=== PATIENT | female | born 1935 | race Caucasian/White ===

== ENCOUNTER → 2016-05-15 | Outpatient (CLI) | payer MEDICARE, OTHER ==
[~2016-05-15] MED LIST: /LOR25TA PO; /METO25TAB PO; ALBU17IN INH; ALEVE PO; AMIT10TA2 OR; AMIT25TA10 PO; ASPI81TA63; ASPI81TA83 OR; ASPI81TAEC PO; BABY81CH; BLACK COHOSH PO; CITA20TA4 PO; COLA100C PO; COMBINATION CREAM TOP; COZA100T OR; CRES20TA; CRES40TA OR; CRES40TA PO; CYMB1CAP5 PO; DOCU10CA PO; ESTR3TA; FISH5CAP PO; FISHCAP OR; FISHCAP5 PO; GABA100C PO; GLUC500C11 PO; GLUCPOW24 PO; GUMMCHW PO; HYDROCODONE PO; LOSA100T36 PO; LOSA50TA20 PO; LYRI75CA; MAGN400C2 PO; MAGN400T5 PO; MAGNESIUM COMPLEX PO; MILKSUS PO; MONT10TA2 PO; MULTCAP PO; Miralax PO; NAPR500T OR; NEUR100C OR; NEUR100C PO; NEUR300C PO; NIAS1000 PO; NIAS10003 OR; NORCOBULK PO; OMEP40CA2 PO; PERC5TAB6 PO; SENO8.6T2 PO; SING10TA31 OR; SING5CHW PO; SM I100T OR; SOMA250T; TRAM50TA2; TYLE-18 PO; TYLE325T5 PO; VICO5TAB; VICO5TAB OR; VICO5TAB PO; VICOTAB4 PO; VITA100041 PO; VITAMIN D50000 UNT; VITAMIN D50000 UNT OR; VOLT1GEL2 TOP; WOMAN'S ONE A DAY; WOMEN'S ONE A DAY OR; ZOLP-187 PO; black cohosh PO; hydrocodone PO
--- NOTE | 2016-05-16 00:08 | ECWPNPC ---
PATIENT NAME: YUKI LAM : 1935 GENDER: FEMALE VISIT DATE: 05/15/2016 DISCHARGE DATE: 05/15/16 1129 VISIT LOCKED DATE TIME: PHYSICIAN: ALIREZA EVANS RESOURCE: ALIREZA EVANS REASON FOR APPOINTMENT 1. BACK HISTORY OF PRESENT ILLNESS HISTORY OF PRESENT ILLNESS: PAIN THE PATIENT DESCRIBES THE PAIN... FALL RISK SCREENING: SCREENING :NO FALLS IN THE PAST YEAR TODAY'S VISIT: NOTES: IS S/P BILATERAL LUMBAR FACET 04/09/16 WHICH EXTEMELY EFFECTIVE UNTIL AN EVENT SEVERAL WEEKS AGO WHEN BENDING OVER. THIS AM ON AWAKIENING HAD MIN DISCOMFORT BUT AFTER DRIVING PAIN HAS ESCALATED.IS STILL HAVING EPISODES OF WEAKNESS IN RIGHT FOOT.. CURRENT MEDICATIONS TAKING LOSARTAN POTASSIUM 50 MG TABLET 1 TABLET ORALLY ONCE A DAY TAKING ASPIRIN 81 MG TABLET 1 TABLET ORALLY ONCE A DAY TAKING MAGNESIUM OXIDE 400 MG TABLET ORALLY BID TAKING CRESTOR 40 MG TABLET 1 TABLET ORALLY ONCE A DAY TAKING NIASPAN 1000 MG TABLET EXTENDED RELEASE 1 TABLET AT BEDTIME ORALLY ONCE A DAY TAKING ADVAIR DISKUS 250-50 MCG/DOSE MISCELLANEOUS 1 PUFF INHALATION TWICE A DAY TAKING SINGULAIR 10 MG TABLET 1 TABLET IN THE EVENING ORALLY ONCE A DAY TAKING DULOXETINE HCL 30 MG CAPSULE DELAYED RELEASE PARTICLES 1 CAPSULE ORALLY ONCE A DAY TAKING VITAMIN D 2000 UNIT TABLET 2 TABLETS ORALLY ONCE A DAY TAKING CYCLOBENZAPRINE HCL 5 MG TABLET 1 TABLET ORALLY BID TAKING IMODIUM A-D 2 MG TABLET 1 TABLET ORALLY EVERY 2 HOURS NEEDED FOR DIARRHEA (MDD=8) NOT-TAKING OMEPRAZOLE 40MG CAPSULE DELAYED RELEASE 1 CAPSULE ORALLY ONCE A DAY NOT-TAKING LIDOCAINE HCL JELLY RESIDENTIAL 2 % JELLY 1 APPLICATION TO AFFECTED AREA NEEDED INTRAVESICALLY PRIOR TO PROCEDURE MEDICATION LIST REVIEWED AND RECONCILED WITH THE PATIENT PAST MEDICAL HISTORY HYPERTENSION - 10/08/13 TTE MILD MR/TR, MILD DIASTOLIC DYSFUNCTION, NORMAL LVE F -DR. 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 NEW PATIENT PAIN DIARY TODAY'S VISITNOTES FROM 0-10, WHAT LEVEL IS YOUR PAIN TODAY?0 PAIN CLINIC PFS, CLERGY, PUBLIC HEALTH REFERRALS PFS REFERRAL NEEDED?NO CLERGY REFERRAL NEEDED?NO PUBLIC HEALTH REFERRAL NEEDED?NO WAS THE PROVIDER NOTIFIED OF ANY PERTINENT INFO?NO PFS REFERRAL NEEDED?NO CLERGY REFERRAL NEEDED?NO PUBLIC HEALTH REFERRAL NEEDED?NO WAS THE PROVIDER NOTIFIED OF ANY PERTINENT INFO?NO REVIEW OF SYSTEMS CONSTITUTIONAL: ANY CHANGE IN YOUR MEDICAL CONDITION? NO . CHILLS NO . FEVER NO . INFECTION: DO YOU HAVE NEW INFECTIONS? NO - RECENT SINUS CONGESTION . DO YOU HAVE HISTORY OF MRSA? NO . MUSCULOSKELETAL: ANY NEW PATTERNS OF PAIN OR NUMBNESS? NO . GASTROENTEROLOGY: GENERAL INCEASED GAS AND BLOATING. IS BEING SCHEDULED FOR ENDOSCOPY . ANY NEW CHANGE IN BOWEL CONTROL? NO . GENITOURINARY: ANY NEW CHANGE IN BLADDER CONTROL? NO . IS THERE A CHANCE YOU COULD BE ? NO . HEMATOLOGY/LYMPH: DO YOU TAKE ANY BLOOD THINNERS? (FOR EXAMPLE- COUMADIN, PLAVIX, AGGRENOX, PLATEL, PRADAXA, OR XARELTO) NO . WHEN WAS YOUR LAST DOSE? DATE: TIME: . NEUROLOGY: HAVE YOU FALLEN IN THE PAST 6 MONTHS? NO . ANY NEW EXTREMITY NUMBNESS OR WEAKNESS? NO . CARDIOLOGY: DO YOU HAVE A PACEMAKER OR DEFIBRILLATOR? NO . RESPIRATORY: HAVE YOU BEEN SICK IN THE PAST WEEK? NO . FEVER NO . FLU LIKE SYMPTOMS? NO . COUGH NO . INTEGUMENTARY: DO YOU HAVE ANY RASHES OR OPEN SORES? YES RIGHT HAND SKIN TEAR. . ALLERGIC/IMMUNO: ARE YOU ALLERGIC TO SHELLFISH OR IV DYE? NO . ANY NEW ALLERGIES? NO . PSYCHIATRIC: DO YOU HAVE THOUGHTS OF HURTING YOURSELF OR SOMEONE ELSE? NO . ARE YOU ABUSED, NEGLECTED, OR IN AN UNSAFE ENVIRONMENT? NO . ENDOCRINOLOGY: ARE YOU DIABETIC? NO . OTHER: DO YOU NEED ANY PRESCRIPTIONS? NO . IF YES, PLEASE LIST: ____ . ANY NEW PROBLEMS WITH YOUR MEDICATIONS? NO . WHEN DID YOU LAST EAT? ____ . WHEN DID YOU LAST DRINK? ____ . WHAT DID YOU LAST DRINK? ____ . NAME OF PERSON DRIVING YOU HOME? ____ . DO YOU HAVE ANY OTHER QUESTIONS OR CONCERNS NO . REVIEWED BY: PROVIDER: ALIREZA PATEL . VITAL SIGNS WT 148.8 LBS, HT 61.50 IN, BMI 27.66 INDEX, BP 128/60 MM HG, HR 90 /MIN, RR 16 /MIN, TEMP 96.7 F, OXYGEN SAT % 97%, NA INITIALS SC 10:52. EXAMINATION GENERAL EXAMINATION: PSYCHALERT , ORIENTED X 3 , APPROPRIATE MOOD AND AFFECT , TALKATIVE. LUNGS:CLEAR TO AUSCULTATION BILATERALLY. HEART:HEART RATE REGULAR. MUSCULOSKELETAL:MUSCLE STRENGTH TESTING 5/5 BILATERAL UPPER AND LOWER EXTREMITIES. MINIMAL TENDERNESS OVER CERVICAL SPINOUS ELICITED WITH PALPATION. POINT TENDERNESS OVER LUMBAR PARAVERTEBRAL MUSCLES AND LUMBAR FACETS AND INTO THE SACRUM. RISES EASILY TO STANDING POSITION. SLIGHT WEAKNESS WITH DORSIFLEXION OF RIGHT FOOT. GAIT NONANTALGIC.. SKIN:NO RASHES. SMALL SUPERFICIAL SKIN TEAR RIGHT WRIST, COVERED WITH BANDAID. ASSESSMENTS LUMBAR FACET ARTHROPATHY - M12.88 (PRIMARY) MYALGIA - M79.1 TREATMENT LUMBAR FACET ARTHROPATHY INJECTION FACET JOINT/NERVE CRYSTAL/SACRALALIREZA EVANS 05/15/2016 11:18:18 AM > THERAPEUTIC BILATERAL NOTES: WALK TOLERATED. TRY ADJUSTING CAR SEAT FOR LUMBAR SUPPORT. PROCEDURE CODES FA211 ESTABILISHED PATIENT [facility] FACILITY CHARGE G8783 BP SCR PRFRM RCMDD DEFIND SCR INTVL 3016F PT SCRND [place]HL[place] USE 1123F ACP DISCUSS/DSCN MKR DOCD 1036F TOBACCO NON-USER 0518F FALL PLAN OF CARE DOCD G8427 DOC MEDS VERIFIED W/PT OR RE G8420 BMI<30 AND >=22 CALC & DOCU 3288F FALL RISK ASSESSMENT DOCD FOLLOW UP AFTER PROCEDURE (REASON: CHECK AUTH FOR BILATERAL LUMBAR FACET BLOCK) ELECTRONICALLY SIGNED BY GREG WAGNER ON 05/15/2016 AT 12:27 PM EST DISCLAIMER : THIS IS A VISIT SUMMARY EXTRACTED FROM THE [employer] CHART. IT IS NOT A COPY OF THE [employer] PROGRESS NOTE. MTDD
== END ==
LOC: M PAIN 10:40
PROVIDERS: ATTEND Nurse Practitioner Family
DX: Z09 Encounter for follow-up examination after completed treatment for conditions other than malignant neoplasm (principal); M12.88 Other specific arthropathies, not elsewhere classified, other specified site; M79.7 Fibromyalgia; I10 Essential (primary) hypertension; E78.5 Hyperlipidemia, unspecified; J44.9 Chronic obstructive pulmonary disease, unspecified; M51.86 Other intervertebral disc disorders, lumbar region; F32.9 Major depressive disorder, single episode, unspecified; F41.9 Anxiety disorder, unspecified; G47.00 Insomnia, unspecified; E55.9 Vitamin D deficiency, unspecified; I65.23 Occlusion and stenosis of bilateral carotid arteries; Z88.8 Allergy status to other drugs, medicaments and biological substances; Z79.82 Long term (current) use of aspirin; Z79.899 Other long term (current) drug therapy

== ENCOUNTER → 2016-05-29 | Outpatient (CLI) | payer MEDICARE, OTHER ==
[~2016-05-29] MED LIST changes: +BUPIVACAINE HCL 0.25% 30 ML VIAL As Ordered ONE; +ISOVUE-M 300 61% 15ML VIAL (Q9967) As Ordered ONE; +LIDOCAINE 1% SDV INJ 30 ML VIAL As Ordered ONE; +TRIAMCINOLONE ACETONIDE SUSP 40 MG/ML VIAL (J3301) As Ordered ONE; +diazePAM 5 MG TAB As Ordered ONE; +oxyCODONE 5MG TAB As Ordered ONE
--- NOTE | 2016-05-29 13:12 | REP ---
Partial lumbar spine series: Four views. History: Bilateral lumbar facet block for pain. 35 seconds of fluoroscopy is reported. Findings: A sequence of four fluoroscopically obtained intraprocedural spot radiographs of the lumbar spine document needle position and contrast injection associated with lumbar facet injection procedure. Signed by Kole Robin MD 05/29/2016 02:34 P
--- NOTE | 2016-05-31 00:22 | ECWPNPC ---
PATIENT NAME: YUKI LAM : 1935 GENDER: FEMALE VISIT DATE: 05/29/2016 DISCHARGE DATE: 05/29/16 1142 VISIT LOCKED DATE TIME: PHYSICIAN: KWAKU CID RESOURCE: KWAKU CID REASON FOR APPOINTMENT 1. BILATERAL LUMBAR FACET BLOCK HISTORY OF PRESENT ILLNESS HISTORY OF PRESENT ILLNESS: PAIN THE PATIENT DESCRIBES THE PAIN... FALL RISK SCREENING: SCREENING :NO FALLS IN THE PAST YEAR CURRENT MEDICATIONS TAKING LOSARTAN POTASSIUM 50 MG TABLET 1 TABLET ORALLY ONCE A DAY, NOTES: 05-28-16699 TAKING ASPIRIN 81 MG TABLET 1 TABLET ORALLY ONCE A DAY, NOTES: 05-28-162099 TAKING MAGNESIUM OXIDE 400 MG TABLET ORALLY BID, NOTES: 05-28-162099 TAKING CRESTOR 40 MG TABLET 1 TABLET ORALLY ONCE A DAY, NOTES: 05-28-16799 TAKING NIASPAN 1000 MG TABLET EXTENDED RELEASE 1 TABLET AT BEDTIME ORALLY ONCE A DAY, NOTES: 05-28-16799 TAKING ADVAIR DISKUS 250-50 MCG/DOSE MISCELLANEOUS 1 PUFF INHALATION TWICE A DAY, NOTES: 05-27-162099 TAKING SINGULAIR 10 MG TABLET 1 TABLET IN THE EVENING ORALLY ONCE A DAY, NOTES: 05-28-16 TAKING DULOXETINE HCL 30 MG CAPSULE DELAYED RELEASE PARTICLES 1 CAPSULE ORALLY ONCE A DAY, NOTES: 05-28-16799 TAKING VITAMIN D 2000 UNIT TABLET 2 TABLETS ORALLY ONCE A DAY, NOTES: 05-28-162099 TAKING CYCLOBENZAPRINE HCL 5 MG TABLET 1 TABLET ORALLY BID, NOTES: 05-27-162099 TAKING IMODIUM A-D 2 MG TABLET 1 TABLET ORALLY EVERY 2 HOURS NEEDED FOR DIARRHEA (MDD=8), NOTES: 05-23-162099 NOT-TAKING CYCLOBENZAPRINE HCL 5 MG TABLET 1 TABLET ORALLY BEFORE BEDTIME NOT-TAKING OMEPRAZOLE 40MG CAPSULE DELAYED RELEASE 1 CAPSULE ORALLY ONCE A DAY NOT-TAKING LIDOCAINE HCL JELLY FCI 2 % JELLY 1 APPLICATION TO AFFECTED AREA NEEDED INTRAVESICALLY PRIOR TO PROCEDURE MEDICATION LIST REVIEWED AND RECONCILED WITH THE PATIENT PAST MEDICAL HISTORY HYPERTENSION - 10/08/13 TTE MILD MR/TR, MILD DIASTOLIC DYSFUNCTION, NORMAL LVE F -DR. 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 NEW PATIENT PAIN DIARY TODAY'S VISITNOTES FROM 0-10, WHAT LEVEL IS YOUR PAIN TODAY?0 PAIN CLINIC PFS, CLERGY, PUBLIC HEALTH REFERRALS PFS REFERRAL NEEDED?NO CLERGY REFERRAL NEEDED?NO PUBLIC HEALTH REFERRAL NEEDED?NO WAS THE PROVIDER NOTIFIED OF ANY PERTINENT INFO?NO PFS REFERRAL NEEDED?NO CLERGY REFERRAL NEEDED?NO PUBLIC HEALTH REFERRAL NEEDED?NO WAS THE PROVIDER NOTIFIED OF ANY PERTINENT INFO?NO REVIEW OF SYSTEMS CONSTITUTIONAL: ANY CHANGE IN YOUR MEDICAL CONDITION? NO . CHILLS NO . FEVER NO . INFECTION: DO YOU HAVE NEW INFECTIONS? NO . DO YOU HAVE HISTORY OF MRSA? NO . MUSCULOSKELETAL: ANY NEW PATTERNS OF PAIN OR NUMBNESS? NO . GASTROENTEROLOGY: ANY NEW CHANGE IN BOWEL CONTROL? NO . GENITOURINARY: ANY NEW CHANGE IN BLADDER CONTROL? NO . IS THERE A CHANCE YOU COULD BE ? NO . HEMATOLOGY/LYMPH: DO YOU TAKE ANY BLOOD THINNERS? (FOR EXAMPLE- COUMADIN, PLAVIX, AGGRENOX, PLATEL, PRADAXA, OR XARELTO) NO . WHEN WAS YOUR LAST DOSE? DATE: TIME: . NEUROLOGY: HAVE YOU FALLEN IN THE PAST 6 MONTHS? NO . ANY NEW EXTREMITY NUMBNESS OR WEAKNESS? NO . CARDIOLOGY: DO YOU HAVE A PACEMAKER OR DEFIBRILLATOR? NO . RESPIRATORY: HAVE YOU BEEN SICK IN THE PAST WEEK? NO . FEVER NO . FLU LIKE SYMPTOMS? NO . COUGH NO . INTEGUMENTARY: DO YOU HAVE ANY RASHES OR OPEN SORES? PT HAS SMALL HEALING SORE ON RIGHT WRIST, NO DRAINAGE, NO REDNESS. . ALLERGIC/IMMUNO: ARE YOU ALLERGIC TO SHELLFISH OR IV DYE? NO . ANY NEW ALLERGIES? NO . PSYCHIATRIC: DO YOU HAVE THOUGHTS OF HURTING YOURSELF OR SOMEONE ELSE? NO . ARE YOU ABUSED, NEGLECTED, OR IN AN UNSAFE ENVIRONMENT? NO . ENDOCRINOLOGY: ARE YOU DIABETIC? NO . OTHER: DO YOU NEED ANY PRESCRIPTIONS? NO . IF YES, PLEASE LIST: ____ . ANY NEW PROBLEMS WITH YOUR MEDICATIONS? NO . WHEN DID YOU LAST EAT? 05/28 9:30PM . WHEN DID YOU LAST DRINK? 05/29 6:45AM . WHAT DID YOU LAST DRINK? BLACK COFFEE . NAME OF PERSON DRIVING YOU HOME? BREE . DO YOU HAVE ANY OTHER QUESTIONS OR CONCERNS NO, PT STATES THAT SHE HAS NOT HAD FLU SHOT SINCE LAST YEAR. . REVIEWED BY: PROVIDER: . VITAL SIGNS WT 14.8 LBS, HT 61.50 IN, BMI 2.75 INDEX, BP 164/72 MM HG, HR 88 /MIN, RR 16 /MIN, TEMP 96.0 F, OXYGEN SAT % 98, SAFE IN ENV? (Y/N) Y, NA INITIALS TL 0946, REVIEWED BY: DS. ASSESSMENTS SPONDYLOSIS WITHOUT MYELOPATHY OR RADICULOPATHY, LUMBAR REGION - M47.816 (PRIMARY) SPONDYLOSIS WITHOUT MYELOPATHY OR RADICULOPATHY, LUMBOSACRAL REGION - M47.817 PROCEDURES PN LUMBAR FACET BLOCK THERAPEUTIC PRE PROCEDURE DIAGNOSIS LUMBAR SPONDYLOSIS, LUMBOSACRAL SPONDYLOSIS POST PROCEDURE DIAGNOSIS LUMBAR SPONDYLOSIS, LUMBOSACRAL SPONDYLOSIS PROCEDURE BILATERAL L4-L5 AND BILATERAL L5-S1 FACET THERAPEUTIC BLOCK SURGEON DR. KWAKU CID DICE SPOTTER NONE ANESTHESIA LOCAL PRE PROCEDURE NOTE THE PATIENT HAS A HISTORY OF CHRONIC LOW BACK PAIN. I EVALUATE THE PATIENT AND REVIEWED THE CHART. I WENT OVER THE RISKS, ALTERNATIVES, AND BENEFITS ASSOCIATED WITH THIS PROCEDURE. THE PATIENT WOULD LIKE TO PROCEED AND GIVE CONSENT TO PERFORMED THE PROCEDURE. THE PATIENT DENIES UNEXPLAINABLE WEIGHT LOSS, FEVER, CHILLS, OR NEW CHANGES IN URINARY OR BOWEL CONTROL DESCRIPTION OF PROCEDURE THE PATIENT WAS BROUGHT TO THE PROCEDURE ROOM AND PLACED IN THE PRONE POSITION. THE LUMBOSACRAL AREA WAS CLEANED WITH CHLORAPREP SOLUTION AND DRAPED ASEPTICALLY. THE PROCEDURE WAS DONE UNDER STERILE CONDITIONS. I CHECKED LATERALITY AND THE LEVEL WHERE THE PROCEDURE WAS GOING TO BE PERFORMED WITH THE PATIENT AND THE SUPPORTING STAFF AT THE MOMENT OF THE TIME OUT IN THE PROCEDURE ROOM. UNDER FLUOROSCOPIC GUIDANCE, THE TARGET POINT WAS SELECTED AT THE RIGHT AND LEFT L4-L5 AND RIGHT AND LEFT L5-S1 FACET JOINT. TARGET POINT WAS SELECTED AFTER LATERAL ROTATION AND TILT OF THE MAGNIFIER OF THE C-ARM. LIDOCAINE 0.5% WAS USED TO NUMB THE SKIN AND THE SUBCUTANEOUS TISSUE BELOW IT. SPINAL NEEDLES, 22-GAUGE, WERE ADVANCED UNDER FLUOROSCOPIC GUIDANCE AND FOLLOWING PATIENT FEEDBACK UNTIL THE TARGETS WERE TOUCHED. THE POSITION OF THE NEEDLES WAS VERIFIED WITH AP AND LATERAL VIEWS. AFTER PROPER POSITION OF THE NEEDLES WAS ACHIEVED, ISOVUE-M DYE 30% 0.1 ML WAS INJECTED SHOWING ADEQUATE SPREAD OF THE DYE. THEN A SOLUTION OF 1.9 ML OF BUPIVACAINE 0.125% OF KENALOG 10 MG WAS INJECTED AT EACH SITE. THERE WAS NO EVIDENCE OF BLOOD, PARESTHESIA OR CEREBROSPINAL FLUID DURING THE PROCEDURE. THE PATIENT WAS SENT TO THE RECOVERY ROOM. THE PATIENT WAS MOVING THE EXTREMITIES AND DOING WELL. THERE WAS NO COMPLICATION DURING THE PROCEDURE. FLUOROSCOPY TIME WAS 35 SECONDS POST PROCEDURE NOTE THE PATIENT WILL BE SEEN IN A FOLLOW UP IN THE NEXT FEW WEEKS. INSTRUCTIONS WERE GIVEN, QUESTIONS WERE ANSWERED, AND THE PATIENT EXPRESSED UNDERSTANDING AND AGREES WITH THE PLAN. INSTRUCTIONS WERE GIVEN, QUESTIONS WERE ANSWERED, PATIENT REPORTS UNDERSTANDING AND AGREES WITH THE PLAN. I, CALVIN YUSUF, DOCUMENTED THE ABOVE INFORMATION ACTING A SCRIBE FOR DR. CID. I HAVE REVIEWED THE ABOVE DOCUMENT, WRITTEN BY CALVIN YUSUF SCRIBE AND I VERIFY THAT IT IS ACCURATE. DIAGNOSTIC IMAGING [facility] FACET BLOCK (PAIN)[id number] PROCEDURE CODES 87513 INJ PARAVERT F JNT L/S 1 LEV 97352 INJ PARAVERT F JNT L/S 2 LEV 6045F RADXPS IN END [id number] PXD FOLLOW UP 3 WEEKS ELECTRONICALLY SIGNED BY KWAKU CID MD ON 05/30/2016 AT 08:09 PM EST DISCLAIMER : THIS IS A VISIT SUMMARY EXTRACTED FROM THE [employer] CHART. IT IS NOT A COPY OF THE [employer] PROGRESS NOTE. MTDD
== END ==
LOC: M PAIN 09:40
PROVIDERS: ATTEND Anesthesiology
DX: G89.29 Other chronic pain (principal); M47.816 Spondylosis without myelopathy or radiculopathy, lumbar region; M47.817 Spondylosis without myelopathy or radiculopathy, lumbosacral region; I10 Essential (primary) hypertension; E78.5 Hyperlipidemia, unspecified; J44.9 Chronic obstructive pulmonary disease, unspecified; F32.9 Major depressive disorder, single episode, unspecified; F41.9 Anxiety disorder, unspecified; G47.00 Insomnia, unspecified; E55.9 Vitamin D deficiency, unspecified; I65.23 Occlusion and stenosis of bilateral carotid arteries; M19.90 Unspecified osteoarthritis, unspecified site; M79.7 Fibromyalgia; Z88.8 Allergy status to other drugs, medicaments and biological substances; Z79.82 Long term (current) use of aspirin
CPT/HCPCS: 64493; 64494; J3301; Q9967

== ENCOUNTER → 2016-06-12 | Outpatient (CLI) | payer MEDICARE, OTHER ==
[~2016-06-12] MED LIST changes: -BUPIVACAINE HCL 0.25% 30 ML VIAL As Ordered ONE; -ISOVUE-M 300 61% 15ML VIAL (Q9967) As Ordered ONE; -LIDOCAINE 1% SDV INJ 30 ML VIAL As Ordered ONE; -TRIAMCINOLONE ACETONIDE SUSP 40 MG/ML VIAL (J3301) As Ordered ONE; -diazePAM 5 MG TAB As Ordered ONE; -oxyCODONE 5MG TAB As Ordered ONE
--- NOTE | 2016-07-04 00:57 | ECWPNPC ---
PATIENT NAME: YUKI LAM : 1935 GENDER: FEMALE VISIT DATE: 06/12/2016 DISCHARGE DATE: 06/12/16 1204 VISIT LOCKED DATE TIME: PHYSICIAN: ALIREZA EVANS RESOURCE: ALIREZA EVANS REASON FOR APPOINTMENT 1. BACK HISTORY OF PRESENT ILLNESS TODAY'S VISIT: NOTES: RATES PAIN TODAY 0/10. HAD BILATERAL THERAPEUTIC LUMBAR FACET BLOCK DONE AT L4-5, L5-S1 ON 05/29/16. PAIN PRIOR TO PROCEDURE 10/10 - AFTER PROCEDURE 0/10. HAS HAD A FEW DAYS WHERE LOW BACK WAS ACHING, BUT OVERALL HAS BEEN DOING WELL.. HISTORY OF PRESENT ILLNESS: PAIN THE PATIENT DESCRIBES THE PAIN... FALL RISK SCREENING: SCREENING :NO FALLS IN THE PAST YEAR CURRENT MEDICATIONS TAKING LOSARTAN POTASSIUM 50 MG TABLET 1 TABLET ORALLY ONCE A DAY, NOTES: 05-28-16699 TAKING ASPIRIN 81 MG TABLET 1 TABLET ORALLY ONCE A DAY, NOTES: 05-28-162099 TAKING MAGNESIUM OXIDE 400 MG TABLET ORALLY BID, NOTES: 05-28-162099 TAKING CRESTOR 40 MG TABLET 1 TABLET ORALLY ONCE A DAY, NOTES: 05-28-16799 TAKING NIASPAN 1000 MG TABLET EXTENDED RELEASE 1 TABLET ORALLY ONCE A DAY, NOTES: 05-28-16799 TAKING ADVAIR DISKUS 250-50 MCG/DOSE MISCELLANEOUS 1 PUFF INHALATION TWICE A DAY PRN, NOTES: 05-27-162099 TAKING SINGULAIR 10 MG TABLET 1 TABLET IN THE EVENING ORALLY ONCE A DAY, NOTES: 05-28-16 TAKING DULOXETINE HCL 30 MG CAPSULE DELAYED RELEASE PARTICLES 1 CAPSULE ORALLY ONCE A DAY, NOTES: 05-28-16799 TAKING VITAMIN D 2000 UNIT TABLET 2 TABLETS ORALLY ONCE A DAY, NOTES: 05-28-162099 TAKING CYCLOBENZAPRINE HCL 5 MG TABLET 1 TABLET ORALLY BID PRN, NOTES: 05-27-162099 TAKING IMODIUM A-D 2 MG TABLET 1 TABLET ORALLY EVERY 2 HOURS NEEDED FOR DIARRHEA (MDD=8), NOTES: 05-23-162099 NOT-TAKING CYCLOBENZAPRINE HCL 5 MG TABLET 1 TABLET ORALLY BEFORE BEDTIME NOT-TAKING OMEPRAZOLE 40MG CAPSULE DELAYED RELEASE 1 CAPSULE ORALLY ONCE A DAY NOT-TAKING LIDOCAINE HCL JELLY HALFWAY 2 % JELLY 1 APPLICATION TO AFFECTED AREA NEEDED INTRAVESICALLY PRIOR TO PROCEDURE MEDICATION LIST REVIEWED AND RECONCILED WITH THE PATIENT PAST MEDICAL HISTORY HYPERTENSION - 10/08/13 TTE MILD MR/TR, MILD DIASTOLIC DYSFUNCTION, NORMAL LVE F -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 NEW PATIENT PAIN DIARY TODAY'S VISITNOTES FROM 0-10, WHAT LEVEL IS YOUR PAIN TODAY?0 PAIN CLINIC PFS, CLERGY, PUBLIC HEALTH REFERRALS PFS REFERRAL NEEDED?NO CLERGY REFERRAL NEEDED?NO PUBLIC HEALTH REFERRAL NEEDED?NO WAS THE PROVIDER NOTIFIED OF ANY PERTINENT INFO?NO PFS REFERRAL NEEDED?NO CLERGY REFERRAL NEEDED?NO PUBLIC HEALTH REFERRAL NEEDED?NO WAS THE PROVIDER NOTIFIED OF ANY PERTINENT INFO?NO REVIEW OF SYSTEMS CONSTITUTIONAL: ANY CHANGE IN YOUR MEDICAL CONDITION? NO . CHILLS NO . FEVER NO . INFECTION: DO YOU HAVE NEW INFECTIONS? NO . DO YOU HAVE HISTORY OF MRSA? NO . MUSCULOSKELETAL: ANY NEW PATTERNS OF PAIN OR NUMBNESS? NO . GASTROENTEROLOGY: ANY NEW CHANGE IN BOWEL CONTROL? NO . GENITOURINARY: ANY NEW CHANGE IN BLADDER CONTROL? NO . IS THERE A CHANCE YOU COULD BE ? NO . HEMATOLOGY/LYMPH: DO YOU TAKE ANY BLOOD THINNERS? (FOR EXAMPLE- COUMADIN, PLAVIX, AGGRENOX, PLATEL, PRADAXA, OR XARELTO) NO . WHEN WAS YOUR LAST DOSE? DATE: TIME: . NEUROLOGY: HAVE YOU FALLEN IN THE PAST 6 MONTHS? NO . ANY NEW EXTREMITY NUMBNESS OR WEAKNESS? NO . CARDIOLOGY: DO YOU HAVE A PACEMAKER OR DEFIBRILLATOR? NO . RESPIRATORY: HAVE YOU BEEN SICK IN THE PAST WEEK? NO . FEVER NO . FLU LIKE SYMPTOMS? NO . COUGH NO . FOLLOW-UP ROS: GASTROENTEROLOGY: HAVING CONTINUED DIFFICULTY WITH BOWEL URGENCY, AND LOUD GI SOUNDS. . INTEGUMENTARY: DO YOU HAVE ANY RASHES OR OPEN SORES? NO . ALLERGIC/IMMUNO: ARE YOU ALLERGIC TO SHELLFISH OR IV DYE? NO . ANY NEW ALLERGIES? NO . PSYCHIATRIC: DO YOU HAVE THOUGHTS OF HURTING YOURSELF OR SOMEONE ELSE? NO . ARE YOU ABUSED, NEGLECTED, OR IN AN UNSAFE ENVIRONMENT? NO . ENDOCRINOLOGY: ARE YOU DIABETIC? NO . OTHER: DO YOU NEED ANY PRESCRIPTIONS? NO . IF YES, PLEASE LIST: ____ . ANY NEW PROBLEMS WITH YOUR MEDICATIONS? NO . WHEN DID YOU LAST EAT? ____ . WHEN DID YOU LAST DRINK? ____ . WHAT DID YOU LAST DRINK? ____ . NAME OF PERSON DRIVING YOU HOME? ____ . DO YOU HAVE ANY OTHER QUESTIONS OR CONCERNS NO . REVIEWED BY: PROVIDER: ALIREZA PATEL . VITAL SIGNS WT 140.6 LBS, HT 61.50 IN, BMI 26.13 INDEX, BP 160/82 MM HG, HR 79 /MIN, RR 16 /MIN, TEMP 97.2 F, OXYGEN SAT % 99%, NA INITIALS SC 11:45, REVIEWED BY: AD. EXAMINATION GENERAL EXAMINATION: PSYCHALERT , ORIENTED X 3 , APPROPRIATE MOOD AND AFFECT . LUNGS:CLEAR TO AUSCULTATION BILATERALLY. HEART:HEART RATE REGULAR. BACK:NO ERYTHEMA OF MID THORACIC REGIONS. MUSCULOSKELETAL:TENDER WITH PALPATION OVER RIGHT LUMBAR SACRAL REGION. FEW TRIGGER POINTS IDENTIFIED OVER LUMBAR PARAVERTEBRAL MUSCLES.. 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 REST WHEN NEEDED. PROCEDURE CODES FA211 ESTABILISHED PATIENT [facility] FACILITY CHARGE G8783 BP SCR PRFRM RCMDD DEFIND SCR INTVL G8730 PAIN ASSESS POS TOOL F/U PLAN DOC 3016F PT SCRND [place]HLTH[place] USE 1123F ACP DISCUSS/DSCN MKR DOCD 1036F TOBACCO NON-USER G8427 DOC MEDS VERIFIED W/PT OR RE G8420 BMI<30 AND >=22 CALC & DOCU 3288F FALL RISK ASSESSMENT DOCD DISPOSITION & COMMUNICATION FOLLOW UP EARLY MAY ELECTRONICALLY SIGNED BY GREG WAGNER ON 07/03/2016 AT 01:34 PM EST DISCLAIMER : THIS IS A VISIT SUMMARY EXTRACTED FROM THE [facility] CHART. IT IS NOT A COPY OF THE [facility] PROGRESS NOTE. MTDD
== END ==
LOC: M PAIN 10:40
PROVIDERS: ATTEND Nurse Practitioner Family
DX: Z09 Encounter for follow-up examination after completed treatment for conditions other than malignant neoplasm (principal); G89.29 Other chronic pain; M47.816 Spondylosis without myelopathy or radiculopathy, lumbar region; M12.88 Other specific arthropathies, not elsewhere classified, other specified site; M47.817 Spondylosis without myelopathy or radiculopathy, lumbosacral region; M79.7 Fibromyalgia; I10 Essential (primary) hypertension; E78.5 Hyperlipidemia, unspecified; J44.9 Chronic obstructive pulmonary disease, unspecified; M51.86 Other intervertebral disc disorders, lumbar region; F32.9 Major depressive disorder, single episode, unspecified; F41.9 Anxiety disorder, unspecified; E55.9 Vitamin D deficiency, unspecified; G47.00 Insomnia, unspecified; I63.233 Cerebral infarction due to unspecified occlusion or stenosis of bilateral carotid arteries; Z88.8 Allergy status to other drugs, medicaments and biological substances; Z79.82 Long term (current) use of aspirin; Z79.899 Other long term (current) drug therapy

== ENCOUNTER → 2016-06-27 | Outpatient (CLI) | payer MEDICARE, OTHER ==
[~2016-06-27] MED LIST changes: +E-Z-GAS II EFFERVESCENT PACKET (SODIUM BICARB./CITRIC ACID/SIMETHICONE) As Ordered ONE; +E-Z-HD 98% w/w 340GM SUSP BTL As Ordered ONE; +E-Z-PAQUE 96% w/w SUSP 176GM BTL As Ordered ONE
--- NOTE | 2016-06-28 11:49 | REP ---
Clinical: dysphagia. Technique: Single contrast and double contrast technique using barium sulfate substrates. Findings: Normal motility and deglutition through the oropharynx and hypopharynx is appreciated without obvious mass/mass effect or contour abnormality. The esophagus demonstrates normal mucosal outline and distension without ulcerations, polyps, mass lesions, mucosal irregularities or extrinsic abnormalities. No areas of stenosis or stricture appreciated. Moderate reproducible reflux to the proximal esophageal level is appreciated with small sliding hiatal hernia. Limited evaluation of the stomach demonstrates normal gastric rugal folds and duodenal bulb. Total fluoroscopic time: 1 minute 45 seconds . Impression: Moderate reproducible gastroesophageal reflux with small sliding hiatal hernia. Signed by Jose C Zepeda MD 06/28/2016 11:41 A
== END | disposition home or self-care (01) ==
LOC: M RAD 10:01
PROVIDERS: ATTEND Physician Assistant Medical
DX: R13.10 Dysphagia, unspecified (principal); K21.9 Gastro-esophageal reflux disease without esophagitis; K44.9 Diaphragmatic hernia without obstruction or gangrene

== ENCOUNTER → 2016-07-10 | Outpatient (REF) | payer MEDICARE, OTHER ==
[~2016-07-10] MED LIST changes: +ADV250INH INH; +ADVA115A INH; -E-Z-GAS II EFFERVESCENT PACKET (SODIUM BICARB./CITRIC ACID/SIMETHICONE) As Ordered ONE; -E-Z-HD 98% w/w 340GM SUSP BTL As Ordered ONE; -E-Z-PAQUE 96% w/w SUSP 176GM BTL As Ordered ONE; +PROA1AER INH; +RANI150T PO; +VITA100037 PO
[2016-07-10 16:47] LABS: ALBUMIN 3.5 GM/DL (3.2-5.2); ALBUMIN/GLOBULIN RATIO 1.09 (1.00-1.93); ALKALINE PHOSPHATASE 108 U/L (45-117); ALT/SGPT 27 U/L (12-78); ANION GAP 6 MEQ/L (8-16); AST/SGOT 22 U/L (15-37); BILIRUBIN,TOTAL 0.3 MG/DL (0.2-1.0); BLOOD UREA NITROGEN 16 MG/DL (7-18); CALCIUM LEVEL 9.1 MG/DL (8.8-10.2); CARBON DIOXIDE LEVEL 30 MEQ/L (21-32); CHLORIDE LEVEL 101 MEQ/L (98-107); CHOLESTEROL LEVEL 260 MG/DL (<200); CREATININE FOR GFR 0.91 MG/DL (0.55-1.02); GLOMERULAR FILTRATION RATE > 60.0 (>32); GLUCOSE, FASTING 93 MG/DL (83-110); MAGNESIUM LEVEL 1.8 MG/DL (1.8-2.4); POTASSIUM SERUM 4.3 MEQ/L (3.5-5.1); SODIUM LEVEL 137 MEQ/L (136-145); TOTAL PROTEIN 6.7 GM/DL (6.4-8.2); TRIGLYCERIDES LEVEL 92 MG/DL (<150)
== END ==
LOC: M SFHCLACO 08:06
PROVIDERS: ATTEND Physician Assistant
DX: I10 Essential (primary) hypertension (principal); E78.2 Mixed hyperlipidemia; E61.2 Magnesium deficiency; E55.9 Vitamin D deficiency, unspecified

== ENCOUNTER 2016-07-13 17:37 | Emergency (ER) | payer MEDICARE, OTHER ==
[~2016-07-13] VITALS: Ht 157.5 cm; Wt 65.3 kg
[~2016-07-13 17:37] MED LIST changes: -ADVA115A INH; -LIDOCAINE 2% INJ 100 MG/5 ML SDV (FOR ANES.) As Ordered ONE; -NS 1,000 ML IV SCH; -PROPOFOL 200 MG/20 ML VIAL As Ordered ONE
[2016-07-13] MEDS ORDERED: MORPHINE 4 MG/ML 1ML SYRINGE IV ONE (18:00)
[2016-07-13] MEDS ORDERED: ADVA115A INH (18:06)
[2016-07-13] MEDS ORDERED: GASTROGRAFIN SOLUTION 30ML (Q9963) PO ONE (18:15)
[2016-07-13] MEDS ORDERED: ONDANSETRON 4MG/2ML VIAL (J2405) IV ONE (18:15)
[2016-07-13 18:16] LABS: BASO # 0.1 K/mm3 (0.0-0.2); BASO % 0.4 % (0.0-1.0); EOS # 0.2 K/mm3 (0.0-0.50); EOS % 1.3 % (0.0-3.0); LARGE UNSTAINED CELL # 0.1 K/mm3 (0.0-0.4); LARGE UNSTAINED CELL % 0.9 % (0.0-4.0); LYMPH % 19.2 % (24.0-44.0); MEAN CORPUSCULAR HEMOGLOBIN 32.3 pg (27.0-33.0); MEAN CORPUSCULAR HGB CONC 33.4 g/dl (32.0-36.5); MEAN CORPUSCULAR VOLUME 96.6 fl (80.0-96.0); MONO # 0.7 K/mm3 (0.0-0.8); MONO % 4.9 % (0.0-5.0); NEUTROPHILS # 10.8 K/mm3 (1.8-7.7); NEUTROPHILS % 73.3 % (36.0-66.0); PLATELET COUNT, AUTOMATED 355 k/mm3 (150-450); RED CELL DISTRIBUTION WIDTH 12.9 % (11.5-14.5); WHITE BLOOD COUNT 14.7 K/mm3 (4.0-10.0)
[2016-07-13 18:42] LABS: ALBUMIN 3.6 GM/DL (3.2-5.2); ALBUMIN/GLOBULIN RATIO 1.13 (1.00-1.93); ALKALINE PHOSPHATASE 117 U/L (45-117); ALT/SGPT 37 U/L (12-78); ANION GAP 10 MEQ/L (8-16); AST/SGOT 26 U/L (15-37); BILIRUBIN,DIRECT < 0.1 MG/DL (0.0-0.2); BILIRUBIN,TOTAL 0.3 MG/DL (0.2-1.0); BLOOD UREA NITROGEN 18 MG/DL (7-18); CALCIUM LEVEL 8.8 MG/DL (8.8-10.2); CARBON DIOXIDE LEVEL 24 MEQ/L (21-32); CHLORIDE LEVEL 106 MEQ/L (98-107); CREATININE FOR GFR 0.78 MG/DL (0.55-1.02); GLOMERULAR FILTRATION RATE > 60.0 (>32); GLUCOSE, FASTING 105 MG/DL (83-110); POTASSIUM SERUM 4.2 MEQ/L (3.5-5.1); SODIUM LEVEL 140 MEQ/L (136-145); TOTAL PROTEIN 6.8 GM/DL (6.4-8.2)
--- NOTE | 2016-07-13 20:00 | REPUSA ---
CT of the chest without contrast Clinical statement: possible esophageal perforation. Technique: Multiple axial CT images were obtained with 5 mm cuts through the chest without administra tion of contrast. Oral contrast was administered. Coronal and sagittal reconstructions were also obta ined. No comparison is available. Findings: There is no thoracic lymphadenopathy. The contrast within the esophagus appears unremarkabl e. There is no discrete evidence of perforation. The visualized portions of the thyroid gland is unre markable. There are no pericardial or pleural effusions. The lungs are clear. Limited imaging of the upper abdomen does not demonstrate any acute abnormalities. There are no suspicious osseous lesions. Impression: 1. The esophagus appears grossly unremarkable on these images. No evidence of contrast extravasation to suggest perforation. If there is further clinical concern, endoscopy could be performed. 2. No acute intrapulmonary disease.
--- NOTE | 2016-07-13 20:10 | REPUSA ---
CT of the soft tissues of the neck Clinical history: possible esophageal perforation. Technique: Multiple axial CT images were obtained from the base of the skull to the upper thorax afte r administration of oral contrast. Coronal and sagittal reconstructions were also obtained. Findings: The visualized paranasal sinuses are clear. The pterygopalatine fossa, pterygoid plates and pterygoid muscles are unremarkable. The visualized portions of the esophagus are unremarkable. The m ucosa of the naso- and oropharynx appears unremarkable. The hypopharynx and larynx show no pathology. The visualized osseous structures are intact. The airway is patent. No focal mass is appreciated. Th ere is no evidence of lymphadenopathy. The thyroid gland appears unremarkable. The superficial soft t issues are unremarkable. Impression: Unremarkable CT examination of the soft tissues of the neck. No discrete evidence of esop hageal perforation. If there is continued clinical concern, endoscopy is recommended.
[2016-07-13] MEDS ORDERED: HEPARIN DRIP 25,000 UNITS in APPROPRIATE DILUENT 1 EA IV SCH (20:56)
[2016-07-13] MEDS ORDERED: HEPARIN SOD (PORCINE) 5000 UNITS/ML VIAL IV ONE (21:00)
[2016-07-13] MEDS ORDERED: ASPIRIN 81 MG CHEW TABLET PO ONE (21:00)
[2016-07-13] MEDS ORDERED: NITROGLYCERIN 0.4 MG SUBL TABLET SL PRN (21:00)
[2016-07-13] MEDS ORDERED: CLOPIDOGREL 300 MG TAB (PLAVIX) PO ONE (21:00)
[2016-07-13] MEDS ORDERED: HEPARIN 25,000 UNITS/250 ML D5W BAG (100 UNITS/ML) As Ordered ONE (21:05)
[2016-07-13] MEDS ORDERED: NITROGLYCERIN 0.4 MG SUBL TABLET As Ordered ONE (21:05)
[2016-07-13 21:10] VITALS: BP 140/73
[2016-07-13] MEDS ORDERED: NS 500 ML IV ONE (21:30)
[2016-07-13] MEDS ORDERED: MORPHINE 2 MG/ML 1ML SYRINGE As Ordered ONE (22:07)
[2016-07-13 22:13] VITALS: BP 116/59
[2016-07-13] MEDS ORDERED: MORPHINE 2 MG/ML 1ML SYRINGE IV ONE (22:15)
--- NOTE | 2016-07-14 11:32 | REP ---
PORTABLE CHEST: AP portable view of the chest is performed. Comparison 12/01/2015. There is no acute infiltrate. The heart is normal in size. There is some calcification of the thoracic aorta. The mediastinal silhouette is unchanged. IMPRESSION: No acute pulmonary disease. Signed by Sandip Arana MD 07/14/2016 07:58 P
--- NOTE | 2016-07-14 12:27 | ECGEPIP ---
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
--- NOTE | 2016-07-14 12:27 | ECGEPIP ---
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
== END 2016-07-13 22:18 | disposition short-term general hospital (02) ==
LOC: EDBD 17:37 → M ED 18:54
DX: I21.4 Non-ST elevation (NSTEMI) myocardial infarction (principal); I25.10 Atherosclerotic heart disease of native coronary artery without angina pectoris; I10 Essential (primary) hypertension; J44.9 Chronic obstructive pulmonary disease, unspecified; E78.5 Hyperlipidemia, unspecified; K21.9 Gastro-esophageal reflux disease without esophagitis; Z79.899 Other long term (current) drug therapy; Z79.82 Long term (current) use of aspirin; Z79.51 Long term (current) use of inhaled steroids; R10.13 Epigastric pain; Q39.4 Esophageal web; M19.90 Unspecified osteoarthritis, unspecified site; R13.10 Dysphagia, unspecified; E78.00 Pure hypercholesterolemia, unspecified; J45.909 Unspecified asthma, uncomplicated; Z88.8 Allergy status to other drugs, medicaments and biological substances
CPT/HCPCS: 43239; 43450; 70490; 71010; 71250; 80048; 80076; 82550; 82553; 83690; 84484; 85025; 88305; 93005; 93041; 96365; 96375; 96376; 99156; 99285; J2405; Q9963

== ENCOUNTER → 2016-07-13 | Outpatient (CLI) | payer MEDICARE, OTHER ==
[~2016-07-13] VITALS: Ht 154.9 cm; Wt 64.4 kg
[~2016-07-13] MED LIST changes: +LIDOCAINE 2% INJ 100 MG/5 ML SDV (FOR ANES.) As Ordered ONE; +NS 1,000 ML IV SCH; +PROPOFOL 200 MG/20 ML VIAL As Ordered ONE
--- NOTE | 2016-07-13 12:01 | ROOR ---
Patient Name: Betsey Xiao Procedure Date: 07/13/2016 11:45 AM Date of : 1935 Age: 80 Room: [facility] Gender: Female Note Status: Finalized Procedure: Upper GI endoscopy Indications: Dyspepsia, Suspected esophageal reflux Providers: Dave YI MD Referring MD: BRI Corey PA-C Requesting Provider: Medicines: Monitored Anesthesia Care Complications: No immediate complications. Procedure: Pre-Anesthesia Assessment: - The heart rate, respiratory rate, oxygen saturations, blood pressure, adequacy of pulmonary ventilation, and response to care were monitored throughout the procedure. The Endoscope was introduced through the mouth, and advanced to the second part of duodenum. The upper GI endoscopy was accomplished without difficulty. The patient tolerated the procedure well. Findings: A web was found in the upper third of the esophagus. The scope was withdrawn. Dilation was performed with a Sauceda dilator with no resistance at 54 Fr. The dilation site was examined following endoscope reinsertion and showed complete resolution of luminal narrowing. Non-severe esophagitis was found at the gastroesophageal junction. Biopsies were taken with a cold forceps for histology. The entire examined stomach was normal. The examined duodenum was normal. Impression: - Web in the upper third of the esophagus. Dilated. - Non-severe reflux esophagitis. Biopsied. - Normal stomach. - Normal examined duodenum. Recommendation: - Continue present medications. - Observe patient's clinical course. - I anticipate no further need for intervention. Dave Yi MD Dave YI MD 07/13/2016 12:01:08 PM This report has been signed electronically. Number of Addenda: 0 Note Initiated On: 07/13/2016 11:45 AM Estimated Blood Loss: Estimated blood loss was minimal.
[2016-07-13 13:00] VITALS: BP 168/93
== END ==
LOC: M OPP 08:46
PROVIDERS: ATTEND Internal Medicine Gastroenterology
DX: R10.13 Epigastric pain (principal); K21.0 Gastro-esophageal reflux disease with esophagitis; Q39.4 Esophageal web; I10 Essential (primary) hypertension; M19.90 Unspecified osteoarthritis, unspecified site; R13.10 Dysphagia, unspecified; E78.00 Pure hypercholesterolemia, unspecified; J45.909 Unspecified asthma, uncomplicated; Z79.82 Long term (current) use of aspirin; Z79.899 Other long term (current) drug therapy; Z88.8 Allergy status to other drugs, medicaments and biological substances

== ENCOUNTER → 2017-01-15 | Outpatient (REF) | payer MEDICARE, OTHER ==
[~2017-01-15] MED LIST changes: +ADVA115A INH; +CLOP75TA2; -COLA100C PO; +COLA100C5 PO; +PANT40TA2; +PERC5TAB12 PO; -PERC5TAB6 PO; -PROA1AER INH; +PROAAER10 INH; -SENO8.6T2 PO; +SENO8.6T5 PO; +VITA-182 PO; -VITA100037 PO; -VITA100041 PO; +VITA100067 PO
[2017-01-15 15:22] LABS: ALBUMIN 3.6 GM/DL (3.2-5.2); ALBUMIN/GLOBULIN RATIO 1.29 (1.00-1.93); ALKALINE PHOSPHATASE 69 U/L (45-117); ALT/SGPT 18 U/L (12-78); ANION GAP 8 MEQ/L (8-16); AST/SGOT 12 U/L (15-37); BILIRUBIN,TOTAL 0.3 MG/DL (0.2-1.0); BLOOD UREA NITROGEN 13 MG/DL (7-18); CALCIUM LEVEL 8.9 MG/DL (8.8-10.2); CARBON DIOXIDE LEVEL 29 MEQ/L (21-32); CHLORIDE LEVEL 105 MEQ/L (98-107); CHOLESTEROL LEVEL 198 MG/DL (<200); CREATININE FOR GFR 0.92 MG/DL (0.55-1.02); GLOMERULAR FILTRATION RATE > 60.0 (>32); GLUCOSE, FASTING 104 MG/DL (83-110); MAGNESIUM LEVEL 1.9 MG/DL (1.8-2.4); POTASSIUM SERUM 4.2 MEQ/L (3.5-5.1); SODIUM LEVEL 142 MEQ/L (136-145); TOTAL PROTEIN 6.4 GM/DL (6.4-8.2); TRIGLYCERIDES LEVEL 98 MG/DL (<150)
== END ==
LOC: M SFHCLACO 07:54
PROVIDERS: ATTEND Physician Assistant
DX: I10 Essential (primary) hypertension (principal); E78.2 Mixed hyperlipidemia; E61.2 Magnesium deficiency; E55.9 Vitamin D deficiency, unspecified

== ENCOUNTER 2017-01-30 23:49 | Emergency (ER) | payer MEDICARE, OTHER ==
[~2017-01-30] VITALS: Ht 165.1 cm; Wt 68.2 kg
[~2017-01-30 23:49] MED LIST changes: -CLOP75TA2; -PANT40TA2
[2017-01-31] MEDS ORDERED: NORCO, ANEXSIA 5/325MG TABLET (HYDROcodone/ACETAMINOPHEN) PO ONE (00:15)
[2017-01-31] MEDS ORDERED: PANT40TA2 (00:16)
[2017-01-31] MEDS ORDERED: CLOP75TA2 (00:16)
--- NOTE | 2017-01-31 01:10 | REPUSA ---
CLINICAL HISTORY: Trauma. TECHNIQUE: Multiple axial CT images were obtained through the thorax without IV contrast material. COMMENTS: Comparison to the prior exam performed on 07/13/2016. There is no evidence of pleural or parenchymal-based mass. There are no pleural effusions. There is n o evidence of hilar or mediastinal lymphadenopathy. The heart and great vessels are within normal soler its. The visualized portions of the liver are of uniform attenuation without mass or defect. There is no i ntra or extrahepatic biliary ductal dilatation. The spleen is unremarkable. The visualized pancreas i s of normal contour and attenuation characteristics. There is no evidence of adrenal mass. The visual ized portions of the kidneys present no abnormalities. The bony structures are free of lytic or blastic lesions. IMPRESSION: Minimal basilar atelectatic pulmonary changes. Chronic finding. No evidence of acute thoracic pathology. Thank you for your kind referral of this patient.
[2017-01-31] MEDS ORDERED: NORCO 5/325MG TABLET (BULK FOR ED) PO ONE (01:30)
[2017-01-31 01:33] VITALS: BP 132/78
== END 2017-01-31 01:49 | disposition home or self-care (01) ==
LOC: EDBD 23:49 → M ED 23:49
DX: S20.212A Contusion of left front wall of thorax, initial encounter (principal); W01.198A Fall on same level from slipping, tripping and stumbling with subsequent striking against other object, initial encounter; Y92.019 Unspecified place in single-family (private) house as the place of occurrence of the external cause; Y93.01 Activity, walking, marching and hiking; Y99.8 Other external cause status; I25.10 Atherosclerotic heart disease of native coronary artery without angina pectoris; I10 Essential (primary) hypertension; E78.5 Hyperlipidemia, unspecified; Z79.899 Other long term (current) drug therapy; Z79.82 Long term (current) use of aspirin; Z88.8 Allergy status to other drugs, medicaments and biological substances

== ENCOUNTER 2017-05-23 07:08 | Day surgery (SDC) | payer MEDICARE, OTHER ==
[2017-05-23] MEDS ORDERED: NS 1,000 ML IV (07:30)
[2017-05-23] MEDS ORDERED: LIDOCAINE 2% INJ 100 MG/5 ML SDV (FOR ANES.) As Ordered (09:10)
[2017-05-23] MEDS ORDERED: PROPOFOL 500 MG/50 ML VIAL As Ordered (09:10)
== END 2017-05-23 09:25 | disposition home or self-care (01) ==
LOC: M OPP 07:08
DX: R12 Heartburn (principal); R05 Cough; I10 Essential (primary) hypertension; E78.5 Hyperlipidemia, unspecified; K57.30 Diverticulosis of large intestine without perforation or abscess without bleeding; M54.9 Dorsalgia, unspecified; M19.049 Primary osteoarthritis, unspecified hand; J45.909 Unspecified asthma, uncomplicated; F32.9 Major depressive disorder, single episode, unspecified; F41.9 Anxiety disorder, unspecified; I25.2 Old myocardial infarction; Z95.5 Presence of coronary angioplasty implant and graft; Z79.82 Long term (current) use of aspirin; Z79.899 Other long term (current) drug therapy; Z88.8 Allergy status to other drugs, medicaments and biological substances; Z87.891 Personal history of nicotine dependence
CPT/HCPCS: 43235

== ENCOUNTER 2017-07-22 13:12 | Outpatient (RCR) | payer MEDICARE, OTHER | END 2017-08-10 | LOC: M ST 13:12 | DX: Z51.89 Encounter for other specified aftercare (principal); R47.02 Dysphasia | CPT/HCPCS: 74230 ==

== ENCOUNTER → 2017-12-09 | Outpatient (CLI) | payer MEDICARE, OTHER ==
[~2017-12-09] MED LIST changes: -/LOR25TA PO; -/METO25TAB PO; -ADV250INH INH; -ADVA115A INH; -ALBU17IN INH; -ALEVE PO; -AMIT10TA2 OR; -AMIT25TA10 PO; -ASPI81TA63; -ASPI81TA83 OR; -ASPI81TAEC PO; -BABY81CH; -BLACK COHOSH PO; -CITA20TA4 PO; -COLA100C5 PO; -COMBINATION CREAM TOP; -COZA100T OR; -CRES20TA; -CRES40TA OR; -CRES40TA PO; -CYMB1CAP5 PO; -DOCU10CA PO; -ESTR3TA; -FISH5CAP PO; -FISHCAP OR; -FISHCAP5 PO; -GABA100C PO; -GLUC500C11 PO; -GLUCPOW24 PO; -GUMMCHW PO; -HYDROCODONE PO; +LIDOCAINE 2% INJ 100 MG/5 ML SDV (FOR ANES.); -LOSA100T36 PO; -LOSA50TA20 PO; -LYRI75CA; -MAGN400C2 PO; -MAGN400T5 PO; -MAGNESIUM COMPLEX PO; +METHACHOLINE KIT (J7674) INH; -MILKSUS PO; -MONT10TA2 PO; -MULTCAP PO; -Miralax PO; -NAPR500T OR; -NEUR100C OR; -NEUR100C PO; -NEUR300C PO; -NIAS1000 PO; -NIAS10003 OR; -NORCOBULK PO; -OMEP40CA2 PO; -PERC5TAB12 PO; -PROAAER10 INH; +PROPOFOL 200 MG/20 ML VIAL; -RANI150T PO; -SENO8.6T5 PO; -SING10TA31 OR; -SING5CHW PO; -SM I100T OR; -SOMA250T; -TRAM50TA2; -TYLE-18 PO; -TYLE325T5 PO; -VICO5TAB; -VICO5TAB OR; -VICO5TAB PO; -VICOTAB4 PO; -VITA-182 PO; -VITA100067 PO; -VITAMIN D50000 UNT; -VITAMIN D50000 UNT OR; -VOLT1GEL2 TOP; -WOMAN'S ONE A DAY; -WOMEN'S ONE A DAY OR; -ZOLP-187 PO; -black cohosh PO; -hydrocodone PO
== END ==
LOC: M CARPUL 07:27
DX: R05 Cough (principal)
CPT/HCPCS: 94070

== ENCOUNTER → 2018-07-07 | Outpatient (CLI) | payer MEDICARE, OTHER ==
[~2018-07-07] MED LIST changes: +/LOR25TA PO; +/METO25TAB PO; +ADV250INH INH; +ADVA115A INH; +ALBU17IN INH; +ALEVE PO; +AMIT10TA2 OR; +AMIT25TA10 PO; +ASPI81TA63; +ASPI81TA83 OR; +ASPI81TAEC PO; +BABY81CH; +BLACK COHOSH PO; +CARV6.25 PO; +CITA20TA4 PO; +CLOP75TA2; +COLA100C5 PO; +COMBINATION CREAM TOP; +COZA100T OR; +CRES20TA; +CRES40TA OR; +CRES40TA PO; +CYMB1CAP5 PO; +DOCU10CA PO; +ESTR3TA; +FISH5CAP PO; +FISHCAP OR; +FISHCAP5 PO; +GABA100C PO; +GLUC500C11 PO; +GLUCPOW24 PO; +GUMMCHW PO; +HYDROCODONE PO; +LANS30CA PO; -LIDOCAINE 2% INJ 100 MG/5 ML SDV (FOR ANES.); +LOSA100T50 PO; +LOSA25TA14 PO; +LOSA50TA88 PO; +LYRI75CA; +MAGN400C2 PO; +MAGN400T5 PO; +MAGNESIUM COMPLEX PO; -METHACHOLINE KIT (J7674) INH; +MILK120011 PO; +MONT10TA2 PO; +MULTCAP PO; +Miralax PO; +NAPR500T OR; +NEUR100C OR; +NEUR100C PO; +NEUR300C PO; +NIAS10003 OR; +NORCOBULK PO; +OMEP40CA2 PO; +PANT40TA3; +PERC5TAB12 PO; +PROAAER10 INH; -PROPOFOL 200 MG/20 ML VIAL; +RANI150T PO; +SENO8.6T5 PO; +SING10TA31 OR; +SING5CHW PO; +SM I100T OR; +SOMA250T; +TRAM50TA2; +TYLE-18 PO; +TYLE325T5 PO; +VICO5TAB; +VICO5TAB OR; +VICO5TAB PO; +VICOTAB4 PO; +VITA-182 PO; +VITA100067 PO; +VITA1CAP2 PO; +VITAMIN D50000 UNT; +VITAMIN D50000 UNT OR; +VOLT1GEL2 TOP; +WOMAN'S ONE A DAY; +WOMEN'S ONE A DAY OR; +ZOLP-187 PO; +[UNRECOGNIZED DRUG - CODE] PO; +black cohosh PO; +hydrocodone PO
[2018-07-07 14:40] LABS: ALBUMIN 3.8 GM/DL (3.2-5.2); BILIRUBIN,TOTAL 0.2 MG/DL (0.2-1.0); CALCIUM LEVEL 9.9 MG/DL (8.8-10.2); CREATININE FOR GFR 1.07 MG/DL (0.55-1.30); GLOMERULAR FILTRATION RATE 52.3 (>32); POTASSIUM SERUM 4.1 MEQ/L (3.5-5.1); TOTAL PROTEIN 7.2 GM/DL (6.4-8.2)
== END ==
LOC: M LAB 13:44
PROVIDERS: ATTEND Nurse Practitioner Family
DX: M25.551 Pain in right hip (principal)

== ENCOUNTER → 2018-07-07 | Outpatient (CLI) | payer MEDICARE, OTHER ==
[~2018-07-07] MED LIST changes: +PROHANCE 279.3MG/ML 15ML VIAL (A9576) As Ordered ONE
--- NOTE | 2018-07-07 17:37 | REP ---
MRI right hip without and with intravenous gadolinium: History: Right hip pain. Abnormal x-ray. Comparison radiographs [facility] June 17, 2018. Technique: Axial, coronal and sagittal imaging planes are included. T1 and T2-weighted scans were obtained with and without fat saturation. Gadolinium enhancement dose is 7 ml of intravenous ProHance. MRI findings: Coronal bilateral T1 and T2-weighted scans demonstrate cortical and medullary bone signal intensity is normal in the proximal femurs. There is no evidence to suggest avascular necrosis. Head neck junction morphology is normal. There is no significant hip joint effusion. There is a peritrochanteric bursal effusions visible on the right. This measures 1.6 cm in greatest diameter and is consistent with peritrochanteric bursitis. There is a little adjacent T2 edema. No significant contrast enhancement is seen here. No other periarticular fluid collection is appreciated. Ligamentum teres is intact. No labral cartilage tear or loose body is seen. The exam is otherwise unremarkable. Impression: There is a peritrochanteric bursal fluid collection consistent with peritrochanteric bursitis. Otherwise negative. ADDENDUM: Posteriorly adjacent to the proximal femur, in the area where the radiograph show, there is a heterogenous area of mixed high and low T2 signal intensity posterior to the proximal femoral cortex. Soft tissue edema associated with dystrophic calcification. This is only partially included in the imaging field of view on the sagittal and coronal scans. Post-Gadolinium enhanced imaging shows heterogenous contrast enhancement here. This is a correction to the impression section: 1. There is peritrochanteric bursal fluid collection consistent with peritrochanteric bursitis. 2. There is heterogenous contrast enhancement edema and calcification adjacent to the posterior cortex of the proximal subtrochanteric femur on the right consistent with dystrophic soft tissue calcification. 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 This is at the gluteus and adductor muscular insertion site. Chronic myofascial tear is a possible etiology as well. No definite mass lesion or bony destruction is seen. Unreviewed
== END ==
LOC: M RAD 12:02
PROVIDERS: ATTEND Nurse Practitioner Family
DX: R93.7 Abnormal findings on diagnostic imaging of other parts of musculoskeletal system (principal); M25.451 Effusion, right hip; M25.551 Pain in right hip
CPT/HCPCS: 36415; 73723; 80053; A9576

== ENCOUNTER → 2018-07-24 | Outpatient (CLI) | payer MEDICARE, OTHER ==
[~2018-07-24] MED LIST changes: -PROHANCE 279.3MG/ML 15ML VIAL (A9576) As Ordered ONE
--- NOTE | 2018-08-06 00:15 | ECWPNPC ---
PATIENT NAME: YUKI LAM : 1935 GENDER: FEMALE VISIT DATE: 07/24/2018 DISCHARGE DATE: 07/24/18 1607 VISIT LOCKED DATE TIME: PHYSICIAN: KWAKU CID MD RESOURCE: KWAKU CID MD REASON FOR APPOINTMENT 1. RIGHT HIP PAIN HISTORY OF PRESENT ILLNESS HISTORY OF PRESENT ILLNESS: PAIN THE PATIENT DESCRIBES THE PAIN... 82 YEAR OLD FEMALE PATIENT WITH A HISTORY OF CHRONIC RIGHT HIP PAIN. THE PATIENT DESCRIBES THE PAIN ACHING, SHOOTING, AND CONTINUOUS WITH A PAIN SCORE OF 8-10/10 DEPENDING ON PHYSICAL ACTIVITY. THE PATIENT SAYS THE PAIN IS OVER THE LATERAL ASPECT OF HER RIGHT HIP AND OCCASIONALLY GOES DOWN HER RIGHT LEG. THE PATIENT SAYS THAT SHE HAS BEEN SUFFERING WITH THIS PAIN FOR ABOUT 4 MONTHS AND IT HAS WORSENED OVER TIME. PATIENT DENIES UNEXPLAINABLE WEIGHT LOSS, FEVER, CHILLS, NEW CHANGES ON HER URINARY OR BOWEL CONTROL. FALL RISK SCREENING: SCREENING : NO FALLS IN THE PAST YEAR. CURRENT MEDICATIONS TAKING CARVEDILOL 6.25 MG TABLET 1 TSP ORALLY TWICE A DAY TAKING ASPIRIN 81 MG TABLET 1 TABLET ORALLY ONCE A DAY, NOTES: 05-28-162099 TAKING LOSARTAN POTASSIUM 25 MG TABLET TAKE 1 TABLET DAILY ORALLY TAKING MONTELUKAST SODIUM 10MG TABLET TAKE 1 TABLET DAILY IN THE EVENING TAKING ROSUVASTATIN CALCIUM 40MG TABLET TAKE 1 TABLET DAILY TAKING LANSOPRAZOLE 30 MG CAPSULE DELAYED RELEASE 1 CAPSULE ORALLY ONCE A DAY TAKING ACETAMINOPHEN 500 MG CAPSULE 1 CAPSULE NEEDED ORALLY EVERY 6 HRS NOT-TAKING CLOPIDOGREL BISULFATE 75 MG TABLET 1 TABLET ORALLY ONCE A DAY NOT-TAKING ADVAIR DISKUS 250-50 MCG/DOSE MISCELLANEOUS 1 PUFF INHALATION TWICE A DAY PRN, NOTES: 05-27-162099 NOT-TAKING PANTOPRAZOLE SODIUM 40 MG TABLET DELAYED RELEASE 1 TABLET ORALLY BEFORE BREAKFAST ONCE A DAY NEEDED NOT-TAKING RANITIDINE HCL 150 MG TABLET 1 TABLET AT BEDTIME ORALLY TWICE A DAY NOT-TAKING VITAMIN D 2000 UNIT TABLET 2 TABLETS ORALLY ONCE A DAY, NOTES: 05-28-162099 NOT-TAKING NIACIN ER (ANTIHYPERLIPIDEMIC) 1000MG TABLET EXTENDED RELEASE TAKE 1 TABLET DAILY AT BEDTIME NOT-TAKING DULOXETINE HCL 30MG CAPSULE DELAYED RELEASE PARTICLES TAKE 1 CAPSULE DAILY MEDICATION LIST REVIEWED AND RECONCILED WITH THE PATIENT PAST MEDICAL HISTORY HYPERTENSION - 10/08/13 TTE MILD MR/TR, MILD DIASTOLIC DYSFUNCTION, NORMAL LVE F -DR. 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; RIGHT ICA 50-69% STENOSIS ARTHRITIS FIBROMYALGIA UTI WY 07/2016 STENTS PLACED ALLERGIES ATORVASTATIN CALCIUM: ACHING IN JOINTS - SIDE EFFECTS SURGICAL HISTORY ORIF LEFT ELBOW AND OLECRANON, REPLACEMENT OF LEFT RADIAL HEAD 12/11/2014 LEFT CARPAL TUNNEL RELEASE 04/01/2014 ARTHROSCOPIC SURGERY TO REPAIR MENISCAL TEAR OF LEFT KNEE 10/21/2013 RIGHT CARPAL TUNNEL RELEASE 11/23/2008 CHOLECYSTECTOMY 03/1999 ABDOMINAL ADHESIONS 03/1988 TOTAL ABDOMINAL HYSTERECTOMY/BILATERAL SALPINGO-OOPHORECTOMY LATE TONSILLECTOMY 03/1956 EPIDERAL INJECTION BACK 11/29/15 STENT 07/2016 FAMILY HISTORY NO FAMILY HISTORY DOCUMENTED. SOCIAL HISTORY GENERAL: TOBACCO USE ARE YOU A:FORMER SMOKER HOW LONG HAS IT BEEN SINCE YOU LAST SMOKED?> 10 YEARS LATEX QUESTIONNAIRE LATEX ALLERGY : HAVE YOU EVER DEVELOPED ANY TYPE OF REACTION AFTER HANDLING LATEX PRODUCTS SUCH RUBBER GLOVES, CONDOMS, DIAPHRAGMS, BALLOONS, SOCKS, OR UNDERWEAR?NO LATEX ALLERGY : HAVE YOU EVER DEVELOPED ANY TYPE OF REACTION DURING OR AFTER DENTAL APPOINTMENT, VAGINAL/RECTAL EXAMINATION, SURGICAL PROCEDURE, OR ANY OTHER EXPOSURE?NO LATEX RISK : HAVE YOU EVER HAD ANY DIFFICULTY BREATHING OR HIVES AFTER EATING OR HANDLING ANY FRUITS, OR VEGETABLES; SUCH KIWI, BANANAS, STONE FRUITS, OR CHESTNUTSNO LATEX RISK : DO YOU HAVE A PREVIOUS PERSONAL HISTORY OF MORE THAN NINE SURGERIES, SPINA BIFIDA, OR REPEATED CATHERTIZATIONS? YES - PLEASE INDICATE : > 9 SURGERIES LATEX RISK : ARE YOU FREQUENTLY EXPOSED TO LATEX PRODUCTS IN YOUR OCCUPATION?NO DATE ASKED : 07/24/2018 LUNG CANCER SCREENING SMOKING STATUS:NON SMOKER BMI CARE GOAL FOLLOW-UP ABOVE NORMAL BMI FOLLOW-UPDIETARY MANAGEMENT EDUCATION, GUIDANCE, AND COUNSELING ALCOHOL SCREENING DID YOU HAVE A DRINK CONTAINING ALCOHOL IN THE PAST YEAR?NO POINTS0 INTERPRETATIONNEGATIVE RECREATIONAL DRUG USE DRUG USE?NO CAFFEINE CAFFEINE USE?NO SEXUAL HX HAD SEX IN THE LAST 12 MONTHS (VAGINAL, ORAL, OR ANAL)?NO HAVE YOU EVER HAD AN STD?NO JEW NO SHINTO BELIEFS THAT WOULD IMPACT HEALTH CARE. LANGUAGE FRISIAN. 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 EXERCISE: NO REGULAR EXERCISE. MARITAL STATUS: . OTHERS AT HOME: NONE. NEW PATIENT PAIN DIARY TODAY'S VISITNOTES FROM 0-10, WHAT LEVEL IS YOUR PAIN TODAY?0 PAIN CLINIC PFS, CLERGY, PUBLIC HEALTH REFERRALS PFS REFERRAL NEEDED?NO CLERGY REFERRAL NEEDED?NO PUBLIC HEALTH REFERRAL NEEDED?NO WAS THE PROVIDER NOTIFIED OF ANY PERTINENT INFO?YES HAS THE PATIENT BEEN EDUCATED REGARDING HIS/HER PLAN OF CARE?YES HAS THE PATIENT BEEN EDUCATED REGARDING PAIN, THE RISK FOR PAIN, THE IMPORTANCE OF EFFECTIVE PAIN MANAGEMENT, AND THE PAIN ASSESSMENT PROCESS?YES ADVANCE DIRECTIVE ADVANCE DIRECTIVE DISCUSSED WITH PATIENT:YES PT HAS HCP DAUGHTERGUS [phone] REVIEWED WITH PT 07/24/18 8585 LAS. HOSPITALIZATION/MAJOR DIAGNOSTIC PROCEDURE SURGERIES ABOVE REVIEW OF SYSTEMS REVIEWED BY: PROVIDER: KWAKU CID MD . CONSTITUTIONAL: ANY CHANGE IN YOUR MEDICAL CONDITION? NO . CHILLS NO . FEVER NO . INFECTION: DO YOU HAVE NEW INFECTIONS? NO . DO YOU HAVE HISTORY OF MRSA? NO . MUSCULOSKELETAL: ANY NEW PATTERNS OF PAIN OR NUMBNESS? YES PT REPORTS PAIN IN RIGHT HIP, WORSE WITH ACTIVITY, GETTING UP AND DOWN.. THIS HAS BEEN GOING ON A COUPLE OF MONTHS . GASTROENTEROLOGY: ANY NEW CHANGE IN BOWEL CONTROL? NO . GENITOURINARY: ANY NEW CHANGE IN BLADDER CONTROL? NO . IS THERE A CHANCE YOU COULD BE ? NO . HEMATOLOGY/LYMPH: DO YOU TAKE ANY BLOOD THINNERS? (FOR EXAMPLE- COUMADIN, PLAVIX, AGGRENOX, PLATEL, PRADAXA, OR XARELTO) NO . WHEN WAS YOUR LAST DOSE? DATE: TIME: . NEUROLOGY: HAVE YOU FALLEN IN THE PAST 12 MONTHS? NO . ANY NEW EXTREMITY NUMBNESS OR WEAKNESS? NO . CARDIOLOGY: DO YOU HAVE A PACEMAKER OR DEFIBRILLATOR? NO . RESPIRATORY: HAVE YOU BEEN SICK IN THE PAST WEEK? NO . FEVER NO . FLU LIKE SYMPTOMS? NO . COUGH NO . INTEGUMENTARY: DO YOU HAVE ANY RASHES OR OPEN SORES? NO . ALLERGIC/IMMUNO: ARE YOU ALLERGIC TO IV DYE? NO . ANY NEW ALLERGIES? NO . PSYCHIATRIC: DO YOU HAVE THOUGHTS OF HURTING YOURSELF OR SOMEONE ELSE? NO . ARE YOU ABUSED, NEGLECTED, OR IN AN UNSAFE ENVIRONMENT? NO . ENDOCRINOLOGY: ARE YOU DIABETIC? NO . OTHER: DO YOU NEED ANY PRESCRIPTIONS? NO . IF YES, PLEASE LIST: ____ . ANY NEW PROBLEMS WITH YOUR MEDICATIONS? NO . WHEN DID YOU LAST EAT? ____ . WHEN DID YOU LAST DRINK? ____ . WHAT DID YOU LAST DRINK? ____ . NAME OF PERSON DRIVING YOU HOME? ____ . DO YOU HAVE ANY OTHER QUESTIONS OR CONCERNS NO . VITAL SIGNS WT 157 LBS, HT 61.50 IN, BMI 29.18 INDEX, BP 154/92 MM HG, HR 70 /MIN, RR 16 /MIN, TEMP 97.1 F, OXYGEN SAT % 94%, SAFE IN ENV? (Y/N) YES, NA INITIALS W 1437, REVIEWED BY: ERWIN. EXAMINATION GENERAL EXAMINATION: PATIENT IS ALERT O X 3 AND COOPERATIVE. TENDERNESS OVER THE RIGHT HIP AND OVER THE RIGHT GREATER TROCHANTER OF THE FEMUR. MRI OF THE RIGHT HIP DONE ON 07/07/2018 SHOWS BURSITIS AND CALCIFICATION ADJACENT TO THE POSTERIOR CORTEX OF THE FEMUR. 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 LAM'S PAIN MANAGEMENT CASE. DUE TO THE TROCHANTERIC BURSITIS IN THE RIGHT HIP, I WOULD LIKE TO MOVE FORWARD WITH AN INJECTION OVER THE RIGHT GREATER TROCHANTER OF THE FEMUR. WE DISCUSSED THE BENEFITS, RISKS, AND ALTERNATIVES OF THE INJECTION AND THE PATIENT WOULD LIKE TO PROCEED. I WILL REFER THE PATIENT TO THE ORTHOPAEDIC GROUP FOR FURTHER EVALUATION PRIOR TO THE INJECTION. INSTRUCTIONS WERE GIVEN, QUESTIONS WERE ANSWERED, PATIENT REPORTS UNDERSTANDING AND AGREES WITH THE PLAN. I, GLENN ASHER, DOCUMENTED THE ABOVE INFORMATION ACTING A SCRIBE FOR DR. CID. I HAVE REVIEWED THE ABOVE DOCUMENT, WRITTEN BY GLENN RENTERIA AND I VERIFY THAT IT IS ACCURATE. . PROCEDURE CODES FA211 ESTABILISHED PATIENT [facility] FACILITY CHARGE G8427 CURRENT MEDS W/DOSAGES DOCUMENTED G8730 PAIN ASSESS POS TOOL F/U PLAN DOC DISPOSITION & COMMUNICATION FOLLOW UP 2 WEEKS (REASON: RIGHT GREATER TROCHANTER IN 2 WEEKS PER M & F/U 2 WEEKS AFTER) ELECTRONICALLY SIGNED BY KWAKU CID MD, MD ON 08/05/2018 AT 11:36 AM EDT DISCLAIMER : THIS IS A VISIT SUMMARY EXTRACTED FROM THE [employer] CHART. IT IS NOT A COPY OF THE [employer] PROGRESS NOTE. JAQUELINE
== END ==
LOC: M PAIN 14:00
PROVIDERS: ATTEND Anesthesiology
DX: M70.61 Trochanteric bursitis, right hip (principal); M25.551 Pain in right hip; G89.29 Other chronic pain; I10 Essential (primary) hypertension; E78.5 Hyperlipidemia, unspecified; J44.9 Chronic obstructive pulmonary disease, unspecified; F32.9 Major depressive disorder, single episode, unspecified; F41.9 Anxiety disorder, unspecified; M79.7 Fibromyalgia; I25.2 Old myocardial infarction; Z79.82 Long term (current) use of aspirin; Z79.899 Other long term (current) drug therapy; Z88.8 Allergy status to other drugs, medicaments and biological substances; Z86.79 Personal history of other diseases of the circulatory system; Z87.891 Personal history of nicotine dependence

== ENCOUNTER → 2018-08-14 | Outpatient (CLI) | payer MEDICARE, OTHER ==
[~2018-08-14] MED LIST changes: -/METO25TAB PO; -CITA20TA4 PO; +CITA20TA6 PO; +METO1TAB87 PO; +VITA-183 PO; -VITA1CAP2 PO
--- NOTE | 2018-08-14 12:23 | REP ---
Right hip: Limited study three views. History: Injection procedure for pain. 14 seconds of fluoroscopy time is reported. Findings: A sequence of three last image hold fluoroscopically obtained spot radiographs of the right hip document needle position and contrast injection associated with right hip injection procedure. Electronically Signed by Kole Robin MD 08/14/2018 01:09 P
--- NOTE | 2018-09-01 00:14 | ECWPNPC ---
PATIENT NAME: YUKI LAM : 1935 GENDER: FEMALE VISIT DATE: 08/14/2018 DISCHARGE DATE: 08/14/18 1055 VISIT LOCKED DATE TIME: PHYSICIAN: KWAKU CID MD RESOURCE: KWAKU CID MD REASON FOR APPOINTMENT 1. RIGHT GREATER TROCHANTER IN [address] Nick & F/U 2 WEEKS AFTER HISTORY OF PRESENT ILLNESS HISTORY OF PRESENT ILLNESS: PAIN THE PATIENT DESCRIBES THE PAIN... FALL RISK SCREENING: SCREENING :NO FALLS REPORTED IN THE LAST YEAR CURRENT MEDICATIONS TAKING CARVEDILOL 6.25 MG TABLET 1 TSP ORALLY TWICE A DAY, NOTES: 08/13/182129 TAKING ASPIRIN 81 MG TABLET 1 TABLET ORALLY ONCE A DAY, NOTES: 08/13/182129 TAKING LOSARTAN POTASSIUM 25 MG TABLET TAKE 1 TABLET DAILY ORALLY , NOTES: 08/13/18899 TAKING MONTELUKAST SODIUM 10MG TABLET TAKE 1 TABLET DAILY IN THE EVENING , NOTES: 08/13/18899 TAKING ROSUVASTATIN CALCIUM 40MG TABLET TAKE 1 TABLET DAILY , NOTES: 08/13/18899 TAKING LANSOPRAZOLE 30 MG CAPSULE DELAYED RELEASE 1 CAPSULE ORALLY ONCE A DAY, NOTES: 08/13/18899 TAKING ACETAMINOPHEN 500 MG CAPSULE 1 CAPSULE NEEDED ORALLY EVERY 6 HRS, NOTES: 08/13/18899 TAKING CLOPIDOGREL BISULFATE 75 MG TABLET 1 TABLET ORALLY ONCE A DAY TAKING ADVAIR DISKUS 250-50 MCG/DOSE MISCELLANEOUS 1 PUFF INHALATION TWICE A DAY PRN, NOTES: 05-27-162099 TAKING PANTOPRAZOLE SODIUM 40 MG TABLET DELAYED RELEASE 1 TABLET ORALLY BEFORE BREAKFAST ONCE A DAY NEEDED TAKING RANITIDINE HCL 150 MG TABLET 1 TABLET AT BEDTIME ORALLY TWICE A DAY TAKING VITAMIN D 2000 UNIT TABLET 2 TABLETS ORALLY ONCE A DAY, NOTES: 05-28-162099 TAKING NIACIN ER (ANTIHYPERLIPIDEMIC) 1000MG TABLET EXTENDED RELEASE TAKE 1 TABLET DAILY AT BEDTIME TAKING DULOXETINE HCL 30MG CAPSULE DELAYED RELEASE PARTICLES TAKE 1 CAPSULE DAILY MEDICATION LIST REVIEWED AND RECONCILED WITH THE PATIENT PAST MEDICAL HISTORY HYPERTENSION - 10/08/13 TTE MILD MR/TR, MILD DIASTOLIC DYSFUNCTION, NORMAL LVE F -DR. 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; RIGHT ICA 50-69% STENOSIS ARTHRITIS FIBROMYALGIA UTI MD 07/2016 STENTS PLACED ALLERGIES ATORVASTATIN CALCIUM: ACHING IN JOINTS - SIDE EFFECTS SURGICAL HISTORY ORIF LEFT ELBOW AND OLECRANON, REPLACEMENT OF LEFT RADIAL HEAD 12/11/2014 LEFT CARPAL TUNNEL RELEASE 04/01/2014 ARTHROSCOPIC SURGERY TO REPAIR MENISCAL TEAR OF LEFT KNEE 10/21/2013 RIGHT CARPAL TUNNEL RELEASE 11/23/2008 CHOLECYSTECTOMY 03/1999 ABDOMINAL ADHESIONS 03/1988 TOTAL ABDOMINAL HYSTERECTOMY/BILATERAL SALPINGO-OOPHORECTOMY LATE TONSILLECTOMY 03/1956 EPIDERAL INJECTION BACK 11/29/15 STENT 07/2016 FAMILY HISTORY NO FAMILY HISTORY DOCUMENTED. SOCIAL HISTORY GENERAL: TOBACCO USE ARE YOU A:FORMER SMOKER HOW LONG HAS IT BEEN SINCE YOU LAST SMOKED?> 10 YEARS LATEX QUESTIONNAIRE LATEX ALLERGY : HAVE YOU EVER DEVELOPED ANY TYPE OF REACTION AFTER HANDLING LATEX PRODUCTS SUCH RUBBER GLOVES, CONDOMS, DIAPHRAGMS, BALLOONS, SOCKS, OR UNDERWEAR?NO LATEX ALLERGY : HAVE YOU EVER DEVELOPED ANY TYPE OF REACTION DURING OR AFTER DENTAL APPOINTMENT, VAGINAL/RECTAL EXAMINATION, SURGICAL PROCEDURE, OR ANY OTHER EXPOSURE?NO LATEX RISK : HAVE YOU EVER HAD ANY DIFFICULTY BREATHING OR HIVES AFTER EATING OR HANDLING ANY FRUITS, OR VEGETABLES; SUCH KIWI, BANANAS, STONE FRUITS, OR CHESTNUTSNO LATEX RISK : DO YOU HAVE A PREVIOUS PERSONAL HISTORY OF MORE THAN NINE SURGERIES, SPINA BIFIDA, OR REPEATED CATHERTIZATIONS? YES - PLEASE INDICATE : > 9 SURGERIES LATEX RISK : ARE YOU FREQUENTLY EXPOSED TO LATEX PRODUCTS IN YOUR OCCUPATION?NO DATE ASKED : 07/24/2018 LUNG CANCER SCREENING SMOKING STATUS:NON SMOKER BMI CARE GOAL FOLLOW-UP ABOVE NORMAL BMI FOLLOW-UPDIETARY MANAGEMENT EDUCATION, GUIDANCE, AND COUNSELING ALCOHOL SCREENING DID YOU HAVE A DRINK CONTAINING ALCOHOL IN THE PAST YEAR?NO POINTS0 INTERPRETATIONNEGATIVE RECREATIONAL DRUG USE DRUG USE?NO CAFFEINE CAFFEINE USE?NO SEXUAL HX HAD SEX IN THE LAST 12 MONTHS (VAGINAL, ORAL, OR ANAL)?NO HAVE YOU EVER HAD AN STD?NO YAZIDI NO RESTORATIONIST BELIEFS THAT WOULD IMPACT HEALTH CARE. LANGUAGE SOUTH AFRICAN. LEARNING BARRIERS / SPECIAL NEEDS CHANGE FROM LAST VISIT?NO BARRIERS TO LEARNING?NO HEARING IMPAIRED?NO VISION IMPAIRED?YES :CORRECTIVE LENSES COGNITIVELY IMPAIRED?NO READINESS TO LEARN?YES LEARNING PREFERENCES?NO LEARNING CAPABILITIES PRESENT?YES EMOTIONAL BARRIERS?NO SPECIAL DEVICES?NO BUSINESS OBJECTS ARCHITECT NEEDED?NO DIET: REGULAR. EXERCISE: NO REGULAR EXERCISE. MARITAL STATUS: . OTHERS AT HOME: NONE. NEW PATIENT PAIN DIARY TODAY'S VISIT NOTES, FROM 0-10, WHAT LEVEL IS YOUR PAIN TODAY? 0. PAIN CLINIC PFS, CLERGY, PUBLIC HEALTH REFERRALS PFS REFERRAL NEEDED?NO CLERGY REFERRAL NEEDED?NO PUBLIC HEALTH REFERRAL NEEDED?NO WAS THE PROVIDER NOTIFIED OF ANY PERTINENT INFO?YES HAS THE PATIENT BEEN EDUCATED REGARDING HIS/HER PLAN OF CARE?YES HAS THE PATIENT BEEN EDUCATED REGARDING PAIN, THE RISK FOR PAIN, THE IMPORTANCE OF EFFECTIVE PAIN MANAGEMENT, AND THE PAIN ASSESSMENT PROCESS?YES ADVANCE DIRECTIVE ADVANCE DIRECTIVE DISCUSSED WITH PATIENT:YES PT HAS HCP DAUGHTERGUS [phone] REVIEWED WITH PT 07/24/18 9103 LASREVIEWED WITH PT 08/14/18 4745 LAS. HOSPITALIZATION/MAJOR DIAGNOSTIC PROCEDURE SURGERIES ABOVE REVIEW OF SYSTEMS REVIEWED BY: PROVIDER: . CONSTITUTIONAL: ANY CHANGE IN YOUR MEDICAL CONDITION? NO . CHILLS NO . FEVER NO . INFECTION: DO YOU HAVE NEW INFECTIONS? NO . DO YOU HAVE HISTORY OF MRSA? NO . MUSCULOSKELETAL: ANY NEW PATTERNS OF PAIN OR NUMBNESS? NO . GASTROENTEROLOGY: ANY NEW CHANGE IN BOWEL CONTROL? NO . GENITOURINARY: ANY NEW CHANGE IN BLADDER CONTROL? NO . IS THERE A CHANCE YOU COULD BE ? NO . HEMATOLOGY/LYMPH: DO YOU TAKE ANY BLOOD THINNERS? (FOR EXAMPLE- COUMADIN, PLAVIX, AGGRENOX, PLATEL, PRADAXA, OR XARELTO) NO . WHEN WAS YOUR LAST DOSE? DATE: TIME: . NEUROLOGY: HAVE YOU FALLEN IN THE PAST 12 MONTHS? NO . ANY NEW EXTREMITY NUMBNESS OR WEAKNESS? NO . CARDIOLOGY: DO YOU HAVE A PACEMAKER OR DEFIBRILLATOR? NO . RESPIRATORY: HAVE YOU BEEN SICK IN THE PAST WEEK? NO . FEVER NO . FLU LIKE SYMPTOMS? NO . COUGH YES, NON-PRODUCTIVE PT REPORTS A DRY COUGH FOR A FEW MONTHS, BEING WORKED UP BY DOCTOR. DOES NOT FEEL ILL. DR CID AWARE, OK TO PROCEED. . INTEGUMENTARY: DO YOU HAVE ANY RASHES OR OPEN SORES? NO . ALLERGIC/IMMUNO: ARE YOU ALLERGIC TO IV DYE? NO . ANY NEW ALLERGIES? NO . PSYCHIATRIC: DO YOU HAVE THOUGHTS OF HURTING YOURSELF OR SOMEONE ELSE? NO . ARE YOU ABUSED, NEGLECTED, OR IN AN UNSAFE ENVIRONMENT? NO . ENDOCRINOLOGY: ARE YOU DIABETIC? NO . OTHER: DO YOU NEED ANY PRESCRIPTIONS? NO . IF YES, PLEASE LIST: ____ . ANY NEW PROBLEMS WITH YOUR MEDICATIONS? NO . WHEN DID YOU LAST EAT? ____08/13/18 2130 . WHEN DID YOU LAST DRINK? ____08/13/18 0930 . WHAT DID YOU LAST DRINK? ____WATER . NAME OF PERSON DRIVING YOU HOME? ____TERRI DAUGHTER . DO YOU HAVE ANY OTHER QUESTIONS OR CONCERNS NO . VITAL SIGNS WT 154.0 LBS, HT 61.50 IN, BMI 28.62 INDEX, BP 162/82 MM HG, HR 68 /MIN, RR 16 /MIN, TEMP 97.8 F, OXYGEN SAT % 99, SAFE IN ENV? 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 POSTPROCEDURE DIAGNOSIS: BURSITIS AT THE RIGHT GREATER TROCHANTER OF THE FEMUR. PROCEDURE: INJECTION AT THE BURSA OF THE OF THE RIGHT GREATER TROCHANTER OF THE FEMUR UNDER FLUOROSCOPIC GUIDANCE. SURGEON: DR. KWAKU CID INTERNAL WHOLESALER: NONEANESTHESIA: LOCAL. PREOPERATIVE NOTE: THE PATIENT HAS A HISTORY OF RIGHT HIP PAIN. I EVALUATED THE PATIENT AND REVIEWED THE CHART. WE BOTH AGREE ON INJECTING OVER THE BURSA OF THE RIGHT GREATER TROCHANTER OF THE FEMUR. I WENT THROUGH THE RISKS, ALTERNATIVES, AND BENEFITS ASSOCIATED WITH THIS PROCEDURE. THE PATIENT WOULD LIKE TO PROCEED AND GIVE CONSENT TO PERFORMED THE PROCEDURE. THE PATIENT DENIES UNEXPLAINABLE WEIGHT LOSS, FEVERS, CHILLS, OR CHANGES IN HIS URINARY OR BOWEL CONTROL. DESCRIPTION OF PROCEDURE: AFTER CONSENT WAS TAKEN, THE PATIENT WAS BROUGHT TO THE PROCEDURE ROOM AND PLACED IN THE LEFT LATERAL DECUBITUS POSITION. THE RIGHT HIP AREA WAS CLEANED WITH CHLORAPREP SOLUTION AND DRAPED ASEPTICALLY. THE PROCEDURE WAS DONE UNDER STERILE CONDITIONS. I CHECKED LATERALITY WITH THE PATIENT AND THE STAFF IN THE PROCEDURE ROOM AT THE MOMENT OF THE TIME OUT. UNDER FLUOROSCOPIC GUIDANCE, TARGET WAS SELECTED AT THE RIGHT GREATER TROCHANTER OF THE FEMUR. LIDOCAINE WAS USED TO NUMB THE SKIN AND THE SUBCUTANEOUS TISSUE BELOW IT. SPINAL NEEDLE, 22-GAUGE WAS ADVANCED UNDER FLUOROSCOPIC GUIDANCE AND FOLLOWING PATIENT FEEDBACK UNTIL THE TARGET WAS TOUCHED. POSITION OF THE NEEDLE WAS VERIFIED WITH AP AND LATERAL VIEWS. AFTER PROPER POSITION OF THE NEEDLE WAS ACHIEVED, ISOVUE M DYE, 30%, 0.25 ML WAS INJECTED SHOWING ADEQUATE SPREAD OF THE DYE. THEN A SOLUTION OF 20 ML OF BUPIVACAINE 0.25% AND KENALOG 40 MG WAS INJECTED. THERE WAS NO EVIDENCE OF BLOOD, PARESTHESIA, OR CEREBROSPINAL FLUID. THE PATIENT WAS SENT TO THE RECOVERY ROOM. THE PATIENT WAS MOVING THE EXTREMITIES AND DOING WELL. THERE WERE NO COMPLICATIONS DURING THE PROCEDURE. POSTOPERATIVE NOTE: I DISCUSSED ALTERNATIVES WITH THE PATIENT. WE WILL SEE THE PATIENT BACK IN SEVERAL WEEKS FOR REEVALUATION OF THE CASE. I AM LOOKING FOR LONG-LASTING PAIN RELIEF WITH THIS INTERVENTION. FLUOROSCOPIC TIME WAS 14 SECONDS. FURTHER RECOMMENDATIONS WILL BE DONE DEPENDING ON HOW THE PATIENT DOES. THERE WERE NO COMPLICATIONS. I, GLENN ASHER, DOCUMENTED THE ABOVE INFORMATION ACTING A SCRIBE FOR DR. CID. I HAVE REVIEWED THE ABOVE DOCUMENT, WRITTEN BY GLENN VILLALTAIBBrooke AND I VERIFY THAT IT IS ACCURATE. PROCEDURE CODES 6045F RADXPS IN END [id number] PXD, MODIFIERS: [place] [id number] DRAIN/INJ JOINT/BURSA W/[place] [id number] NEEDLE LOCALIZATION BY XRAY, MODIFIERS: 26 DISPOSITION & COMMUNICATION FOLLOW UP 3 WEEKS ELECTRONICALLY SIGNED BY KWAKU CID MD, MD ON 08/31/2018 AT 03:25 PM EDT DISCLAIMER : THIS IS A VISIT SUMMARY EXTRACTED FROM THE [employer] CHART. IT IS NOT A COPY OF THE [employer] PROGRESS NOTE. MTDD
== END ==
LOC: M PAIN 08:45
PROVIDERS: ATTEND Anesthesiology
DX: G89.29 Other chronic pain (principal); M70.61 Trochanteric bursitis, right hip; I10 Essential (primary) hypertension; E78.5 Hyperlipidemia, unspecified; J44.9 Chronic obstructive pulmonary disease, unspecified; F32.9 Major depressive disorder, single episode, unspecified; F41.9 Anxiety disorder, unspecified; M79.7 Fibromyalgia; I25.2 Old myocardial infarction; Z79.82 Long term (current) use of aspirin; Z88.8 Allergy status to other drugs, medicaments and biological substances; Z86.79 Personal history of other diseases of the circulatory system; Z87.891 Personal history of nicotine dependence

== ENCOUNTER → 2018-08-29 | Outpatient (CLI) | payer MEDICARE, OTHER ==
--- NOTE | 2018-09-11 00:04 | ECWPNPC ---
PATIENT NAME: YUKI LAM : 1935 GENDER: FEMALE VISIT DATE: 08/29/2018 DISCHARGE DATE: 08/29/18 1023 VISIT LOCKED DATE TIME: PHYSICIAN: KWAKU CID MD RESOURCE: KWAKU CID MD REASON FOR APPOINTMENT 1. POST PROC HISTORY OF PRESENT ILLNESS HISTORY OF PRESENT ILLNESS: PAIN THE PATIENT DESCRIBES THE PAIN... 82 YEAR OLD FEMALE PATIENT WITH A HISTORY OF CHRONIC LOW BACK PAIN. THE PATIENT DESCRIBES THE PAIN SHARP AND STABBING WITH A PAIN SCORE OF 6-9/10 DEPENDING ON PHYSICAL ACTIVITY. THE PATIENT SAYS SHE RECEIVED LUMBAR FACET BLOCKS IN THE PAST RESULTING IN ADEQUATE PAIN RELIEF. THE PATIENT SAYS SHE IS VERY SATISFIED WITH THE PAIN RESULTS FROM HER RIGHT HIP INJECTION DONE ON 08/14/2018 AND SAYS THERE IS NO PAIN IN THE AREA. PATIENT DENIES UNEXPLAINABLE WEIGHT LOSS, FEVER, CHILLS, NEW CHANGES ON HER URINARY OR BOWEL CONTROL. FALL RISK SCREENING: SCREENING :NO FALLS REPORTED IN THE LAST YEAR CURRENT MEDICATIONS TAKING CARVEDILOL 6.25 MG TABLET 1 TSP ORALLY TWICE A DAY TAKING ASPIRIN 81 MG TABLET 1 TABLET ORALLY ONCE A DAY TAKING MONTELUKAST SODIUM 10MG TABLET TAKE 1 TABLET DAILY IN THE EVENING TAKING LANSOPRAZOLE 30 MG CAPSULE DELAYED RELEASE 1 CAPSULE ORALLY ONCE A DAY TAKING ACETAMINOPHEN 500 MG CAPSULE 1 CAPSULE NEEDED ORALLY EVERY 6 HRS TAKING PANTOPRAZOLE SODIUM 40 MG TABLET DELAYED RELEASE 1 TABLET ORALLY BEFORE BREAKFAST ONCE A DAY NEEDED TAKING RANITIDINE HCL 150 MG TABLET 1 TABLET AT BEDTIME ORALLY TWICE A DAY TAKING VITAMIN D 2000 UNIT TABLET 2 TABLETS ORALLY ONCE A DAY, NOTES: 05-28-162099 TAKING DULOXETINE HCL 30MG CAPSULE DELAYED RELEASE PARTICLES TAKE 1 CAPSULE DAILY TAKING CRESTOR 40 MG TABLET 1 TABLET ORALLY ONCE A DAY TAKING ATACAND 8 MG TABLET 1 TABLET ORALLY ONCE A DAY NOT-TAKING ADVAIR DISKUS 250-50 MCG/DOSE MISCELLANEOUS 1 PUFF INHALATION TWICE A DAY PRN DISCONTINUED LOSARTAN POTASSIUM 25 MG TABLET TAKE 1 TABLET DAILY ORALLY DISCONTINUED ROSUVASTATIN CALCIUM 40MG TABLET TAKE 1 TABLET DAILY DISCONTINUED CLOPIDOGREL BISULFATE 75 MG TABLET 1 TABLET ORALLY ONCE A DAY DISCONTINUED NIACIN ER (ANTIHYPERLIPIDEMIC) 1000MG TABLET EXTENDED RELEASE TAKE 1 TABLET DAILY AT BEDTIME MEDICATION LIST REVIEWED AND RECONCILED WITH THE PATIENT PAST MEDICAL HISTORY HYPERTENSION - 10/08/13 TTE MILD MR/TR, MILD DIASTOLIC DYSFUNCTION, NORMAL LVE F -DR. JARRELL, [facility] HYPERLIPIDEMIA COPD LUMBAR DJD DEPRESSION/ANXIETY INSOMNIA VITAMIN D DEFICIENCY BILATERAL CAROTID ARTERY DISEASE - LEFT ICA < 50% STENOSIS; RIGHT ICA 50-69% STENOSIS ARTHRITIS FIBROMYALGIA UTI [place] 07/2016 STENTS PLACED ALLERGIES ATORVASTATIN CALCIUM: ACHING IN JOINTS - SIDE EFFECTS SURGICAL HISTORY ORIF LEFT ELBOW AND OLECRANON, REPLACEMENT OF LEFT RADIAL HEAD 12/11/2014 LEFT CARPAL TUNNEL RELEASE 04/01/2014 ARTHROSCOPIC SURGERY TO REPAIR MENISCAL TEAR OF LEFT KNEE 10/21/2013 RIGHT CARPAL TUNNEL RELEASE 11/23/2008 CHOLECYSTECTOMY 03/1999 ABDOMINAL ADHESIONS 03/1988 TOTAL ABDOMINAL HYSTERECTOMY/BILATERAL SALPINGO-OOPHORECTOMY LATE TONSILLECTOMY 03/1956 EPIDERAL INJECTION BACK 11/29/15 STENT 07/2016 FAMILY HISTORY FATHER: MOTHER: 5 BROTHER(S) , 7 SISTER(S) . 1 SON(S) , 2 DAUGHTER(S) - HEALTHY. SISTER INFANTSISTER BONE CASISTER KIDNEYSISTER STOMACH CASISTER PARKINSONS. SOCIAL HISTORY GENERAL: TOBACCO USE ARE YOU A:FORMER SMOKER HOW LONG HAS IT BEEN SINCE YOU LAST SMOKED?> 10 YEARS LATEX QUESTIONNAIRE LATEX ALLERGY : HAVE YOU EVER DEVELOPED ANY TYPE OF REACTION AFTER HANDLING LATEX PRODUCTS SUCH RUBBER GLOVES, CONDOMS, DIAPHRAGMS, BALLOONS, SOCKS, OR UNDERWEAR?NO LATEX ALLERGY : HAVE YOU EVER DEVELOPED ANY TYPE OF REACTION DURING OR AFTER DENTAL APPOINTMENT, VAGINAL/RECTAL EXAMINATION, SURGICAL PROCEDURE, OR ANY OTHER EXPOSURE?NO LATEX RISK : HAVE YOU EVER HAD ANY DIFFICULTY BREATHING OR HIVES AFTER EATING OR HANDLING ANY FRUITS, OR VEGETABLES; SUCH KIWI, BANANAS, STONE FRUITS, OR CHESTNUTSNO LATEX RISK : DO YOU HAVE A PREVIOUS PERSONAL HISTORY OF MORE THAN NINE SURGERIES, SPINA BIFIDA, OR REPEATED CATHERTIZATIONS? YES - PLEASE INDICATE : > 9 SURGERIES LATEX RISK : ARE YOU FREQUENTLY EXPOSED TO LATEX PRODUCTS IN YOUR OCCUPATION?NO DATE ASKED : 07/24/2018 LUNG CANCER SCREENING SMOKING STATUS:NON SMOKER BMI CARE GOAL FOLLOW-UP ABOVE NORMAL BMI FOLLOW-UPDIETARY MANAGEMENT EDUCATION, GUIDANCE, AND COUNSELING ALCOHOL SCREENING DID YOU HAVE A DRINK CONTAINING ALCOHOL IN THE PAST YEAR?NO POINTS0 INTERPRETATIONNEGATIVE RECREATIONAL DRUG USE DRUG USE?NO CAFFEINE CAFFEINE USE?NO SEXUAL HX HAD SEX IN THE LAST 12 MONTHS (VAGINAL, ORAL, OR ANAL)?NO HAVE YOU EVER HAD AN STD?NO ORIENTAL ORTHODOX NO HINDU BELIEFS THAT WOULD IMPACT HEALTH CARE. LANGUAGE NEPALI. LEARNING BARRIERS / SPECIAL NEEDS CHANGE FROM LAST VISIT?NO BARRIERS TO LEARNING?NO HEARING IMPAIRED?NO VISION IMPAIRED?YES :CORRECTIVE LENSES COGNITIVELY IMPAIRED?NO READINESS TO LEARN?YES LEARNING PREFERENCES?NO LEARNING CAPABILITIES PRESENT?YES EMOTIONAL BARRIERS?NO SPECIAL DEVICES?NO SOCIOLOGY ADJUNCT INSTRUCTOR NEEDED?NO DIET: REGULAR. EXERCISE: NO REGULAR EXERCISE. MARITAL STATUS: . OTHERS AT HOME: NONE. NEW PATIENT PAIN DIARY TODAY'S VISIT NOTES, FROM 0-10, WHAT LEVEL IS YOUR PAIN TODAY? 0. PAIN CLINIC PFS, CLERGY, PUBLIC HEALTH REFERRALS PFS REFERRAL NEEDED?NO CLERGY REFERRAL NEEDED?NO PUBLIC HEALTH REFERRAL NEEDED?NO WAS THE PROVIDER NOTIFIED OF ANY PERTINENT INFO?YES HAS THE PATIENT BEEN EDUCATED REGARDING HIS/HER PLAN OF CARE?YES HAS THE PATIENT BEEN EDUCATED REGARDING PAIN, THE RISK FOR PAIN, THE IMPORTANCE OF EFFECTIVE PAIN MANAGEMENT, AND THE PAIN ASSESSMENT PROCESS?YES ADVANCE DIRECTIVE ADVANCE DIRECTIVE DISCUSSED WITH PATIENT:YES PT HAS HCP DAUGHTERGUS [phone] REVIEWED WITH PT 07/24/18 2089 LASREVIEWED WITH PT 08/14/18 9443 LAS. HOSPITALIZATION/MAJOR DIAGNOSTIC PROCEDURE SURGERIES ABOVE REVIEW OF SYSTEMS REVIEWED BY: PROVIDER: KWAKU CID MD . CONSTITUTIONAL: ANY CHANGE IN YOUR MEDICAL CONDITION? NO . CHILLS NO . FEVER NO . INFECTION: DO YOU HAVE NEW INFECTIONS? NO . DO YOU HAVE HISTORY OF MRSA? NO . MUSCULOSKELETAL: ANY NEW PATTERNS OF PAIN OR NUMBNESS? YES, PAIN IS BETTER . GASTROENTEROLOGY: ANY NEW CHANGE IN BOWEL CONTROL? NO . GENITOURINARY: ANY NEW CHANGE IN BLADDER CONTROL? NO . IS THERE A CHANCE YOU COULD BE ? NO . HEMATOLOGY/LYMPH: DO YOU TAKE ANY BLOOD THINNERS? (FOR EXAMPLE- COUMADIN, PLAVIX, AGGRENOX, PLATEL, PRADAXA, OR XARELTO) NO . WHEN WAS YOUR LAST DOSE? DATE: TIME: . NEUROLOGY: HAVE YOU FALLEN IN THE PAST 12 MONTHS? NO . ANY NEW EXTREMITY NUMBNESS OR WEAKNESS? NO . CARDIOLOGY: DO YOU HAVE A PACEMAKER OR DEFIBRILLATOR? NO . RESPIRATORY: HAVE YOU BEEN SICK IN THE PAST WEEK? YES, PERSISTANT COUGH X1 YEAR . FEVER NO . FLU LIKE SYMPTOMS? NO . COUGH YES, SOMETIMES PRODUCTIVE YELLOW MUCOUS . INTEGUMENTARY: DO YOU HAVE ANY RASHES OR OPEN SORES? NO . ALLERGIC/IMMUNO: ARE YOU ALLERGIC TO IV DYE? NO . ANY NEW ALLERGIES? NO . PSYCHIATRIC: DO YOU HAVE THOUGHTS OF HURTING YOURSELF OR SOMEONE ELSE? NO . ARE YOU ABUSED, NEGLECTED, OR IN AN UNSAFE ENVIRONMENT? NO . ENDOCRINOLOGY: ARE YOU DIABETIC? NO . OTHER: DO YOU NEED ANY PRESCRIPTIONS? NO . IF YES, PLEASE LIST: ____ . ANY NEW PROBLEMS WITH YOUR MEDICATIONS? NO . WHEN DID YOU LAST EAT? ____ . WHEN DID YOU LAST DRINK? ____ . WHAT DID YOU LAST DRINK? ____ . NAME OF PERSON DRIVING YOU HOME? ____ . DO YOU HAVE ANY OTHER QUESTIONS OR CONCERNS NO . VITAL SIGNS WT 153 LBS, HT 61.50 IN, BMI 28.44 INDEX, BP 130/60 MM HG, HR 54 /MIN, RR 16 /MIN, TEMP 98.7 F, OXYGEN SAT % 97, REVIEWED BY: EM. EXAMINATION GENERAL EXAMINATION: PATIENT IS ALERT O X 3 AND COOPERATIVE. TENDERNESS OVER THE LOW BACK AREA. PAIN INCREASES OVER THE LOW BACK FACET JOINTS WITH EXTENSION AND LATERAL ROTATION OF THE BACK. MRI OF THE LEFT SACRUM DONE ON 07/23/2012 SHOWS FACET ARTHROPATHY CHANGES AT THE LOWER LEVELS. 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 LAM'S PAIN MANAGEMENT CASE. DUE TO THE LUMBAR SPONDYLOSIS, I WOULD LIKE TO MOVE FORWARD WITH A THERAPEUTIC LUMBAR FACET BLOCK AT THIS TIME. WE DISCUSSED THE BENEFITS, RISKS, AND ALTERNATIVES OF THE INJECTION AND THE PATIENT WOULD LIKE TO PROCEED. I WOULD LIKE TO REQUEST A NEW MRI TO BE DONE SINCE THE LAST ONE PERFORMED WAS IN JULY 2012. THE PATIENT WILL FOLLOW UP IN 3 WEEKS AFTER THE INJECTION. INSTRUCTIONS WERE GIVEN, QUESTIONS WERE ANSWERED, PATIENT REPORTS UNDERSTANDING AND AGREES WITH THE PLAN. I, GERTRUDE CABA, DOCUMENTED THE ABOVE INFORMATION ACTING A SCRIBE FOR DR. CID. I HAVE REVIEWED THE ABOVE DOCUMENT, WRITTEN BY GERTRUDE CABA SCRIBBrooke AND I VERIFY THAT IT IS ACCURATE. . PROCEDURE CODES FA211 ESTABILISHED PATIENT [facility] FACILITY CHARGE [id number] CURRENT MEDS W/DOSAGES DOCUMENTED [id number] PAIN ASSESS POS TOOL F/U PLAN DOC DISPOSITION & COMMUNICATION FOLLOW UP 3 WEEKS ELECTRONICALLY SIGNED BY KWAKU CID MD, ON 09/10/2018 AT 11:55 AM EDT DISCLAIMER : THIS IS A VISIT SUMMARY EXTRACTED FROM THE [employer] CHART. IT IS NOT A COPY OF THE [employer] PROGRESS NOTE. JAQUELINE
== END ==
LOC: M PAIN 09:00
PROVIDERS: ATTEND Anesthesiology
DX: M47.816 Spondylosis without myelopathy or radiculopathy, lumbar region (principal); M54.5 Low back pain; G89.29 Other chronic pain; M25.551 Pain in right hip; I10 Essential (primary) hypertension; E78.5 Hyperlipidemia, unspecified; J44.9 Chronic obstructive pulmonary disease, unspecified; Z86.59 Personal history of other mental and behavioral disorders; G47.00 Insomnia, unspecified; E55.9 Vitamin D deficiency, unspecified; M19.90 Unspecified osteoarthritis, unspecified site; M79.7 Fibromyalgia; Z95.5 Presence of coronary angioplasty implant and graft; Z87.891 Personal history of nicotine dependence; Z88.8 Allergy status to other drugs, medicaments and biological substances; Z79.82 Long term (current) use of aspirin; Z79.899 Other long term (current) drug therapy

== ENCOUNTER → 2018-09-23 | Outpatient (CLI) | payer MEDICARE, OTHER ==
[~2018-09-23] MED LIST changes: +BUPIVACAINE HCL 0.25% 30 ML VIAL As Ordered ONE; +ISOVUE-M 300 61% 15ML VIAL (Q9967) As Ordered ONE; +LIDOCAINE 1% SDV INJ 30 ML VIAL As Ordered ONE; +TRIAMCINOLONE ACETONIDE SUSP 40 MG/ML VIAL (J3301) As Ordered ONE; +diazePAM 5 MG TAB As Ordered ONE; +oxyCODONE 5MG TAB As Ordered ONE
--- NOTE | 2018-09-23 11:01 | REP ---
Partial lumbar spine series: Four views . History: Injection procedure for pain. 25 seconds of fluoroscopy time is reported. Findings: A sequence of four fluoroscopically obtained last image hold procedural spot radiographs of the lumbar spine document needle position and contrast injection associated with injection procedure. Electronically Signed by Kole Robin MD 09/23/2018 10:52 A
--- NOTE | 2018-10-04 23:31 | ECWPNPC ---
PATIENT NAME: YUKI LAM : 1935 GENDER: FEMALE VISIT DATE: 09/23/2018 DISCHARGE DATE: 09/23/18 1042 VISIT LOCKED DATE TIME: PHYSICIAN: KWAKU CID MD RESOURCE: KWAKU CID MD REASON FOR APPOINTMENT 1. ROMIEAT ANALI FACET BLK HISTORY OF PRESENT ILLNESS HISTORY OF PRESENT ILLNESS: PAIN THE PATIENT DESCRIBES THE PAIN... FALL RISK SCREENING: SCREENING :NO FALLS REPORTED IN THE LAST YEAR CURRENT MEDICATIONS TAKING CARVEDILOL 6.25 MG TABLET 1 TSP ORALLY TWICE A DAY, NOTES: 09/22/182129 TAKING ASPIRIN 81 MG TABLET 1 TABLET ORALLY ONCE A DAY, NOTES: 09/22/182129 TAKING MONTELUKAST SODIUM 10MG TABLET TAKE 1 TABLET DAILY IN THE EVENING , NOTES: 09/22/18899 TAKING LANSOPRAZOLE 30 MG CAPSULE DELAYED RELEASE 1 CAPSULE ORALLY ONCE A DAY, NOTES: 09/22/18899 TAKING ACETAMINOPHEN 500 MG CAPSULE 1 CAPSULE NEEDED ORALLY EVERY 6 HRS, NOTES: MONTH AGO TAKING DULOXETINE HCL 30MG CAPSULE DELAYED RELEASE PARTICLES TAKE 1 CAPSULE DAILY , NOTES: 09/22/18899 TAKING CRESTOR 40 MG TABLET 1 TABLET ORALLY ONCE A DAY, NOTES: 09/22/18899 TAKING ATACAND 8 MG TABLET 1 TABLET ORALLY ONCE A DAY, NOTES: 09/22/18899 TAKING CETIRIZINE HCL 10 MG TABLET 1 TABLET ORALLY ONCE A DAY, NOTES: 09/22/18899 NOT-TAKING PANTOPRAZOLE SODIUM 40 MG TABLET DELAYED RELEASE 1 TABLET ORALLY BEFORE BREAKFAST ONCE A DAY NEEDED NOT-TAKING RANITIDINE HCL 150 MG TABLET 1 TABLET AT BEDTIME ORALLY TWICE A DAY NOT-TAKING VITAMIN D 2000 UNIT TABLET 2 TABLETS ORALLY ONCE A DAY NOT-TAKING ADVAIR DISKUS 250-50 MCG/DOSE MISCELLANEOUS 1 PUFF INHALATION TWICE A DAY PRN MEDICATION LIST REVIEWED AND RECONCILED WITH THE PATIENT PAST MEDICAL HISTORY HYPERTENSION - 10/08/13 TTE MILD MR/TR, MILD DIASTOLIC DYSFUNCTION, NORMAL LVE F -DR. 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 ICA < 50% STENOSIS; RIGHT ICA 50-69% STENOSIS ARTHRITIS FIBROMYALGIA UTI PR 07/2016 STENTS PLACED CHRONIC PAIN ALLERGIES ATORVASTATIN CALCIUM: ACHING IN JOINTS - SIDE EFFECTS SURGICAL HISTORY ORIF LEFT ELBOW AND OLECRANON, REPLACEMENT OF LEFT RADIAL HEAD 12/11/2014 LEFT CARPAL TUNNEL RELEASE 04/01/2014 ARTHROSCOPIC SURGERY TO REPAIR MENISCAL TEAR OF LEFT KNEE 10/21/2013 RIGHT CARPAL TUNNEL RELEASE 11/23/2008 CHOLECYSTECTOMY 03/1999 ABDOMINAL ADHESIONS 03/1988 TOTAL ABDOMINAL HYSTERECTOMY/BILATERAL SALPINGO-OOPHORECTOMY LATE TONSILLECTOMY 03/1956 EPIDERAL INJECTION BACK 11/29/15 STENT 07/2016 FAMILY HISTORY FATHER: MOTHER: 5 BROTHER(S) , 7 SISTER(S) . 1 SON(S) , 2 DAUGHTER(S) - HEALTHY. SISTER INFANTSISTER BONE CASISTER KIDNEYSISTER STOMACH CASISTER PARKINSONS. SOCIAL HISTORY GENERAL: TOBACCO USE ARE YOU A:FORMER SMOKER HOW LONG HAS IT BEEN SINCE YOU LAST SMOKED?> 10 YEARS OTHERS AT HOME: NONE. DIET: REGULAR. LANGUAGE AZERI. NEW PATIENT PAIN DIARY TODAY'S VISIT NOTES, FROM 0-10, WHAT LEVEL IS YOUR PAIN TODAY? 0. BMI CARE GOAL FOLLOW-UP ABOVE NORMAL BMI FOLLOW-UPDIETARY MANAGEMENT EDUCATION, GUIDANCE, AND COUNSELING RECREATIONAL DRUG USE DRUG USE?NO EXERCISE: NO REGULAR EXERCISE. LEARNING BARRIERS / SPECIAL NEEDS CHANGE FROM LAST VISIT?NO BARRIERS TO LEARNING?NO HEARING IMPAIRED?NO VISION IMPAIRED?YES :CORRECTIVE LENSES COGNITIVELY IMPAIRED?NO READINESS TO LEARN?YES LEARNING PREFERENCES?NO LEARNING CAPABILITIES PRESENT?YES EMOTIONAL BARRIERS?NO SPECIAL DEVICES?NO CHILD HEALTH ASSOCIATE NEEDED?NO LUNG CANCER SCREENING SMOKING STATUS:NON SMOKER PAIN CLINIC PFS, CLERGY, PUBLIC HEALTH REFERRALS PFS REFERRAL NEEDED?NO CLERGY REFERRAL NEEDED?NO PUBLIC HEALTH REFERRAL NEEDED?NO WAS THE PROVIDER NOTIFIED OF ANY PERTINENT INFO?YES HAS THE PATIENT BEEN EDUCATED REGARDING HIS/HER PLAN OF CARE?YES HAS THE PATIENT BEEN EDUCATED REGARDING PAIN, THE RISK FOR PAIN, THE IMPORTANCE OF EFFECTIVE PAIN MANAGEMENT, AND THE PAIN ASSESSMENT PROCESS?YES LATEX QUESTIONNAIRE LATEX ALLERGY : HAVE YOU EVER DEVELOPED ANY TYPE OF REACTION AFTER HANDLING LATEX PRODUCTS SUCH RUBBER GLOVES, CONDOMS, DIAPHRAGMS, BALLOONS, SOCKS, OR UNDERWEAR?NO LATEX ALLERGY : HAVE YOU EVER DEVELOPED ANY TYPE OF REACTION DURING OR AFTER DENTAL APPOINTMENT, VAGINAL/RECTAL EXAMINATION, SURGICAL PROCEDURE, OR ANY OTHER EXPOSURE?NO LATEX RISK : HAVE YOU EVER HAD ANY DIFFICULTY BREATHING OR HIVES AFTER EATING OR HANDLING ANY FRUITS, OR VEGETABLES; SUCH KIWI, BANANAS, STONE FRUITS, OR CHESTNUTSNO LATEX RISK : DO YOU HAVE A PREVIOUS PERSONAL HISTORY OF MORE THAN NINE SURGERIES, SPINA BIFIDA, OR REPEATED CATHERTIZATIONS? YES - PLEASE INDICATE : > 9 SURGERIES LATEX RISK : ARE YOU FREQUENTLY EXPOSED TO LATEX PRODUCTS IN YOUR OCCUPATION?NO DATE ASKED : 07/24/2018 CAFFEINE CAFFEINE USE?NO ADVANCE DIRECTIVE ADVANCE DIRECTIVE DISCUSSED WITH PATIENT:YES PT HAS HCP DAUGHTERGUS [phone] YAZDANISM NO PENTECOSTALISM BELIEFS THAT WOULD IMPACT HEALTH CARE. MARITAL STATUS: . ALCOHOL SCREENING DID YOU HAVE A DRINK CONTAINING ALCOHOL IN THE PAST YEAR?NO POINTS0 INTERPRETATIONNEGATIVE SEXUAL HX HAD SEX IN THE LAST 12 MONTHS (VAGINAL, ORAL, OR ANAL)?NO HAVE YOU EVER HAD AN STD?NO REVIEWED WITH PT 07/24/18 1515 LASREVIEWED WITH PT 08/14/18 0925 LASREVIEWED WITH PATIENT 09/23/18 0857 JS. HOSPITALIZATION/MAJOR DIAGNOSTIC PROCEDURE SURGERIES ABOVE CHEST PAIN 08/2018 REVIEW OF SYSTEMS REVIEWED BY: PROVIDER: . CONSTITUTIONAL: ANY CHANGE IN YOUR MEDICAL CONDITION? NO . CHILLS NO . FEVER NO . INFECTION: DO YOU HAVE NEW INFECTIONS? NO . DO YOU HAVE HISTORY OF MRSA? NO . MUSCULOSKELETAL: ANY NEW PATTERNS OF PAIN OR NUMBNESS? YES, STATES INCREASING PAIN IN BACK . GASTROENTEROLOGY: ANY NEW CHANGE IN BOWEL CONTROL? NO . GENITOURINARY: ANY NEW CHANGE IN BLADDER CONTROL? NO . IS THERE A CHANCE YOU COULD BE ? NO . HEMATOLOGY/LYMPH: DO YOU TAKE ANY BLOOD THINNERS? (FOR EXAMPLE- COUMADIN, PLAVIX, AGGRENOX, PLATEL, PRADAXA, OR XARELTO) NO . WHEN WAS YOUR LAST DOSE? DATE: TIME: . NEUROLOGY: HAVE YOU FALLEN IN THE PAST 12 MONTHS? YES, FALL 2-3 WEEKS, TRIPPED OVER STAIRS. BRUISE TO RIGHT KNEE AND HOLDER. NO OTHER INJURIES, NO ED VISIT . ANY NEW EXTREMITY NUMBNESS OR WEAKNESS? NO . CARDIOLOGY: DO YOU HAVE A PACEMAKER OR DEFIBRILLATOR? NO . RESPIRATORY: HAVE YOU BEEN SICK IN THE PAST WEEK? NO . FEVER NO . FLU LIKE SYMPTOMS? NO . COUGH YES, PERSISTENT COUGH, GOING TO SPECIALIST OCTOBER 02. NO FEVER, NO SIGNS OF COLD . INTEGUMENTARY: DO YOU HAVE ANY RASHES OR OPEN SORES? NO . ALLERGIC/IMMUNO: ARE YOU ALLERGIC TO IV DYE? NO . ANY NEW ALLERGIES? NO . PSYCHIATRIC: DO YOU HAVE THOUGHTS OF HURTING YOURSELF OR SOMEONE ELSE? NO . ARE YOU ABUSED, NEGLECTED, OR IN AN UNSAFE ENVIRONMENT? NO . ENDOCRINOLOGY: ARE YOU DIABETIC? NO . OTHER: DO YOU NEED ANY PRESCRIPTIONS? NO . IF YES, PLEASE LIST: ____ . ANY NEW PROBLEMS WITH YOUR MEDICATIONS? NO . WHEN DID YOU LAST EAT? ____09/22/18 2130 . WHEN DID YOU LAST DRINK? ____09/23/18 0600 . WHAT DID YOU LAST DRINK? ____BLACK COFFEE . NAME OF PERSON DRIVING YOU HOME? ____MICHAEL GALVAN . DO YOU HAVE ANY OTHER QUESTIONS OR CONCERNS NO . VITAL SIGNS WT 154.8 LBS, HT 61.50 IN, BMI 28.77 INDEX, BP 152/78MANUAL, HR 70 /MIN, RR 18 /MIN, TEMP 97.0 F, OXYGEN SAT % 99%, NA INITIALS SC 08:46. ASSESSMENTS SPONDYLOSIS WITHOUT MYELOPATHY OR RADICULOPATHY, LUMBAR REGION - M47.816 (PRIMARY) SPONDYLOSIS OF LUMBOSACRAL REGION WITHOUT MYELOPATHY OR RADICULOPATHY - M47.817 TREATMENT SPONDYLOSIS WITHOUT MYELOPATHY OR RADICULOPATHY, LUMBAR REGION [facility] FACET BLOCK (PAIN)[id number] PROCEDURES PN LUMBAR FACET BLOCK THERAPEUTIC PRE PROCEDURE DIAGNOSIS LUMBAR SPONDYLOSIS, LUMBOSACRAL SPONDYLOSIS POST PROCEDURE DIAGNOSIS LUMBAR SPONDYLOSIS, LUMBOSACRAL SPONDYLOSIS PROCEDURE BILATERAL L4-L5 AND BILATERAL L5-S1 LUMBAR FACET THERAPEUTIC BLOCK SURGEON DR. KWAKU CID [employer] OFFICER NONE ANESTHESIA LOCAL PRE PROCEDURE NOTE THE PATIENT HAS A HISTORY OF CHRONIC LOW BACK PAIN. I EVALUATE THE PATIENT AND REVIEWED THE CHART. I WENT OVER THE RISKS, ALTERNATIVES, AND BENEFITS ASSOCIATED WITH THIS PROCEDURE. THE PATIENT WOULD LIKE TO PROCEED AND GIVE CONSENT TO PERFORMED THE PROCEDURE. THE PATIENT DENIES UNEXPLAINABLE WEIGHT LOSS, FEVER, CHILLS, OR NEW CHANGES IN URINARY OR BOWEL CONTROL DESCRIPTION OF PROCEDURE THE PATIENT WAS BROUGHT TO THE PROCEDURE ROOM AND PLACED IN THE PRONE POSITION. THE LUMBOSACRAL AREA WAS CLEANED WITH CHLORAPREP SOLUTION AND DRAPED ASEPTICALLY. THE PROCEDURE WAS DONE UNDER STERILE CONDITIONS. I CHECKED LATERALITY AND THE LEVEL WHERE THE PROCEDURE WAS GOING TO BE PERFORMED WITH THE PATIENT AND THE SUPPORTING STAFF AT THE MOMENT OF THE TIME OUT IN THE PROCEDURE ROOM. UNDER FLUOROSCOPIC GUIDANCE, THE TARGET POINT WAS SELECTED AT THE RIGHT AND LEFT L4-L5 AND RIGHT AND LEFT L5-S1 FACET JOINT. TARGET POINT WAS SELECTED AFTER LATERAL ROTATION AND TILT OF THE MAGNIFIER OF THE C-ARM. LIDOCAINE 0.5% WAS USED TO NUMB THE SKIN AND THE SUBCUTANEOUS TISSUE BELOW IT. SPINAL NEEDLES, 22-GAUGE, WERE ADVANCED UNDER FLUOROSCOPIC GUIDANCE AND FOLLOWING PATIENT FEEDBACK UNTIL THE TARGETS WERE TOUCHED. THE POSITION OF THE NEEDLES WAS VERIFIED WITH AP AND LATERAL VIEWS. AFTER PROPER POSITION OF THE NEEDLES WAS ACHIEVED, ISOVUE-M DYE 30% 0.1 ML WAS INJECTED SHOWING ADEQUATE SPREAD OF THE DYE. THEN A SOLUTION OF 1.9 ML OF BUPIVACAINE 0.125% OF KENALOG 10 MG WAS INJECTED AT EACH SITE. THERE WAS NO EVIDENCE OF BLOOD, PARESTHESIA OR CEREBROSPINAL FLUID DURING THE PROCEDURE. THE PATIENT WAS SENT TO THE RECOVERY ROOM. THE PATIENT WAS MOVING THE EXTREMITIES AND DOING WELL. THERE WAS NO COMPLICATION DURING THE PROCEDURE. FLUOROSCOPY TIME WAS 25 SECONDS POST PROCEDURE NOTE THE PATIENT WILL BE SEEN IN A FOLLOW UP IN THE NEXT FEW WEEKS. INSTRUCTIONS WERE GIVEN, QUESTIONS WERE ANSWERED, AND THE PATIENT EXPRESSED UNDERSTANDING AND AGREES WITH THE PLAN. I, GLENN ASHER, DOCUMENTED THE ABOVE INFORMATION ACTING A SCRIBE FOR DR. CID. I HAVE REVIEWED THE ABOVE DOCUMENT, WRITTEN BY GLENN RENTERIA AND I VERIFY THAT IT IS ACCURATE. PROCEDURE CODES 6045F RADXPS IN END [id number] PXD [id number] INJ PARAVERT F JNT L/S 1 LEV, MODIFIERS: 50 [id number] INJ PARAVERT F JNT L/S 2 LEV, MODIFIERS: 50 DISPOSITION & COMMUNICATION FOLLOW UP 3 WEEKS ELECTRONICALLY SIGNED BY KWAKU CID MD, MD ON 10/04/2018 AT 05:07 PM EDT DISCLAIMER : THIS IS A VISIT SUMMARY EXTRACTED FROM THE [employer] CHART. IT IS NOT A COPY OF THE [employer] PROGRESS NOTE. MTDD
== END ==
LOC: M PAIN 08:30
PROVIDERS: ATTEND Anesthesiology
DX: G89.29 Other chronic pain (principal); M47.816 Spondylosis without myelopathy or radiculopathy, lumbar region; M47.817 Spondylosis without myelopathy or radiculopathy, lumbosacral region; I10 Essential (primary) hypertension; E78.5 Hyperlipidemia, unspecified; J44.9 Chronic obstructive pulmonary disease, unspecified; M19.90 Unspecified osteoarthritis, unspecified site; M79.7 Fibromyalgia; I25.2 Old myocardial infarction; Z79.82 Long term (current) use of aspirin; Z79.899 Other long term (current) drug therapy; Z88.8 Allergy status to other drugs, medicaments and biological substances; Z87.891 Personal history of nicotine dependence; Z86.59 Personal history of other mental and behavioral disorders; Z86.79 Personal history of other diseases of the circulatory system
CPT/HCPCS: 64493; 64494; J3301; Q9967

== ENCOUNTER → 2018-10-24 | Outpatient (CLI) | payer MEDICARE, OTHER ==
[~2018-10-24] MED LIST changes: -BUPIVACAINE HCL 0.25% 30 ML VIAL As Ordered ONE; +ISOVUE-370 76% 100ML VIAL (Q9967) As Ordered ONE; -ISOVUE-M 300 61% 15ML VIAL (Q9967) As Ordered ONE; -LIDOCAINE 1% SDV INJ 30 ML VIAL As Ordered ONE; -TRIAMCINOLONE ACETONIDE SUSP 40 MG/ML VIAL (J3301) As Ordered ONE; -diazePAM 5 MG TAB As Ordered ONE; -oxyCODONE 5MG TAB As Ordered ONE
--- NOTE | 2018-10-24 09:29 | REP ---
CT CHEST WITH IV CONTRAST: TECHNIQUE: Axial contrast enhanced images from the thoracic inlet to the upper abdomen using 100 mL Isovue 370 intravenous contrast material with multiplanar reformations. COMPARISON: 01/31/2017 There is mild biapical pleural and parenchymal scarring which appears stable compared to the prior exam. No infiltrate or suspicious nodular opacity is seen in either lung. There is mild diffuse atherosclerotic calcification of the thoracic aorta without aneurysm. The heart is normal in size. There is no evidence of mediastinal, hilar or chest wall lymphadenopathy. There is no pleural or pericardial effusion. In the visualized upper abdomen, no gallbladder is seen. The adrenal glands are normal. There are degenerative changes of the spine. IMPRESSION: Mild biapical and pleural and parenchymal scarring. No significant pathologic abnormality in the chest. Electronically Signed by Sandip Arana MD 10/24/2018 07:23 P
== END ==
LOC: M RAD 07:35
PROVIDERS: ATTEND Physician Assistant
DX: R91.8 Other nonspecific abnormal finding of lung field (principal)
CPT/HCPCS: 71260; Q9967

== ENCOUNTER 2018-10-30 08:53 | Emergency (ER) | payer MEDICARE, OTHER ==
[~2018-10-30] VITALS: Ht 157.5 cm; Wt 68.2 kg
[~2018-10-30 08:53] MED LIST changes: -ISOVUE-370 76% 100ML VIAL (Q9967) As Ordered ONE
[2018-10-30] MEDS ORDERED: CAND8TAB (09:12)
[2018-10-30] MEDS ORDERED: ALL10TAB28 (09:12)
[2018-10-30] MEDS ORDERED: FAMO40TA3 (09:12)
[2018-10-30] MEDS ORDERED: MONT10TA2 (09:12)
[2018-10-30] MEDS ORDERED: NORCO, ANEXSIA 5/325MG TABLET (HYDROcodone/ACETAMINOPHEN) PO ONE (10:00)
--- NOTE | 2018-10-30 10:30 | REP ---
AP pelvis and left hip: AP pelvis single view: There is no pelvic fracture. Mineralization is normal. The sacroiliac and hip articulations are unremarkable. There are numerous calcifications, likely phleboliths. Impression: No fracture. Pelvic calcifications, likely phleboliths. Left hip two views: Mineralization and joint space are normal. There is no fracture or dislocation. No calcifications or foreign bodies. Impression: Negative left hip. Electronically Signed by Sandip Mcconnell MD 10/30/2018 10:22 A
[2018-10-30] MEDS ORDERED: HYDR-3713 PO (11:30)
[2018-10-30 11:55] VITALS: BP 112/67
--- NOTE | 2018-10-30 12:21 | REP ---
Lumbar spine five views: There are no comparisons. There is mild lumbar scoliosis convex left. Vertebral body heights and interspacing are normal. There is mild grade 1 anterolisthesis of L5 on S1. There is questionable spondylolysis of L5 on the right. No spondylolysis on the left. The pedicles and facet articulations are unremarkable. Sacroiliac articulations are unremarkable. Impression: Mild grade 1 anterolisthesis of L5. Questionable L5 spondylolysis on the right. Vertebral body heights and interspacing are normal. The pedicles, facets and sacroiliac articulations are unremarkable. There are pelvic calcifications, likely phleboliths. Electronically Signed by Sandip Mcconnell MD 10/30/2018 12:13 P
== END 2018-10-30 12:10 | disposition home or self-care (01) ==
LOC: M ED 08:53 → EDBD 08:53 → M ED 12:10
DX: S30.0XXA Contusion of lower back and pelvis, initial encounter (principal); M54.30 Sciatica, unspecified side; X58.XXXA Exposure to other specified factors, initial encounter; Y92.9 Unspecified place or not applicable; Y93.01 Activity, walking, marching and hiking; Y99.9 Unspecified external cause status; I50.9 Heart failure, unspecified; I25.2 Old myocardial infarction; I10 Essential (primary) hypertension; Z95.5 Presence of coronary angioplasty implant and graft; M51.36 Other intervertebral disc degeneration, lumbar region; Z79.82 Long term (current) use of aspirin; Z79.899 Other long term (current) drug therapy

== ENCOUNTER 2018-12-08 18:12 | Inpatient (IN) | payer MEDICARE, OTHER ==
[~2018-12-08] VITALS: Ht 160 cm; Wt 65.0 kg
[~2018-12-08 18:12] MED LIST changes: +ALL10TAB28 PO; +CAND8TAB PO; +FAMO40TA3; +HYDR-3713 PO
[2018-12-08] MEDS: DOCUSATE SODIUM 100 MG CAP PO SCH (21:00)
[2018-12-08] MEDS: ASPIRIN 81 MG ENTERIC TAB PO SCH (21:00)
[2018-12-08] MEDS: CARVedilol 6.25 MG TAB PO SCH (21:00)
[2018-12-08 21:06] LABS: BASO # 0.1 10^3/uL (0.0-0.2); BASO % 0.4 % (0.0-1.0); EOS # 0.1 10^3/uL (0.0-0.50); EOS % 1.2 % (0.0-3.0); HEMATOCRIT 35.2 % (36.0-47.0); HEMOGLOBIN 11.4 g/dl (12.0-15.5); LYMPH # 2.3 10^3/uL (1.5-4.5); LYMPH % 20.5 % (24.0-44.0); MEAN CORPUSCULAR HEMOGLOBIN 31.9 pg (27.0-33.0); MEAN CORPUSCULAR HGB CONC 32.4 g/dl (32.0-36.5); MEAN CORPUSCULAR VOLUME 98.6 fl (80.0-96.0); MONO # 0.9 10^3/uL (0.0-0.8); MONO % 8.1 % (0.0-5.0); NEUTROPHILS # 7.9 10^3/uL (1.8-7.7); NEUTROPHILS % 69.4 % (36.0-66.0); PLATELET COUNT, AUTOMATED 271 10^3/uL (150-450); RED BLOOD COUNT 3.57 10^6/uL (4.00-5.40); WHITE BLOOD COUNT 11.4 10^3/uL (4.0-10.0)
[2018-12-08] MEDS: GASTROGRAFIN SOLUTION 30ML PO SCH ×2 (21:08→22:05)
[2018-12-08 21:09] LABS: APPEARANCE, URINE CLEAR (CLEAR); BACTERIA, URINE AUTO NEGATIVE (NEGATIVE); BILIRUBIN, URINE AUTO NEGATIVE (NEGATIVE); BLOOD, URINE BLOOD NEGATIVE (NEGATIVE); COLOR, URINE STRAW (YELLOW); GLUCOSE, URINE (UA) AUTO NEGATIVE (NEGATIVE); KETONE, URINE AUTO NEGATIVE (NEGATIVE); LEUKOCYTE ESTERASE, URINE AUTO NEGATIVE (NEGATIVE); NITRITE, URINE AUTO NEGATIVE (NEGATIVE); PROTEIN, URINE AUTO NEGATIVE (NEGATIVE); RBC, URINE AUTO 1 /HPF (0-3); SPECIFIC GRAVITY URINE AUTO 1.003 (1.002-1.035); SQUAMOUS EPITHELIAL CELL UR AU 0 /HPF (0-6); UROBILINOGEN, URINE AUTO 0.2 mg/dL (0.0-2.0); WBC, URINE AUTO 1 /HPF (0-3)
[2018-12-08 21:21] LABS: INR 1.11
[2018-12-08 21:22] LABS: PARTIAL THROMBOPLASTIN TIME 29.8 SECONDS (25.0-38.4)
[2018-12-08 21:36] LABS: ALT/SGPT 21 U/L (12-78); BILIRUBIN,DIRECT 0.1 MG/DL (0.0-0.2); BILIRUBIN,TOTAL 0.4 MG/DL (0.2-1.0); BLOOD UREA NITROGEN 12 MG/DL (7-18); CALCIUM LEVEL 8.8 MG/DL (8.8-10.2); CARBON DIOXIDE LEVEL 27 MEQ/L (21-32); CHLORIDE LEVEL 109 MEQ/L (98-107); CREATININE FOR GFR 0.87 MG/DL (0.55-1.30); GLOMERULAR FILTRATION RATE > 60.0 (>32); GLUCOSE, FASTING 92 MG/DL (70-100); LIPASE 195 U/L (73-393); POTASSIUM SERUM 4.1 MEQ/L (3.5-5.1); SODIUM LEVEL 142 MEQ/L (136-145); TOTAL PROTEIN 6.2 GM/DL (6.4-8.2)
[2018-12-08] MEDS ORDERED: ISOVUE-370 76% 100ML VIAL (Q9967) As Ordered ONE (22:32)
--- NOTE | 2018-12-09 00:02 | REPVR ---
EXAM: CT Abdomen and Pelvis With Contrast EXAM DATE/TIME: 12/08/2018 10:48 PM CLINICAL HISTORY: 83 years old, female; Abdominal pain; Generalized; Prior surgery TECHNIQUE: Imaging protocol: Axial computed tomography images of the abdomen and pelvis with intravenous contrast. Coronal and sagittal reformatted images were created and reviewed. Radiation optimization: All CT scans at this facility use at least one of these dose optimization techniques: automated exposure control; mA and/or kV adjustment per patient size (includes targeted exams where dose is matched to clinical indication); or iterative reconstruction. Contrast material: ISOVUE 370;Contrast volume: 100 ml;Contrast route: IV; COMPARISON: CR Hip,AP,LAT to include Pelvis 10/30/2018 9:52 AM FINDINGS: Lungs: Minimal linear stranding and groundglass at the lung bases, likely due to atelectasis and/or scarring. Liver: Mild hepatic steatosis. Gallbladder and bile ducts: Status post cholecystectomy. No biliary ductal dilatation. Pancreas: Unremarkable. Spleen: Unremarkable. Adrenals: Unremarkable. Kidneys and ureters: Mild bilateral renal cortical scarring. No radiodense calculi. No hydronephrosis. Stomach and bowel: Small duodenal diverticulum. Focal area of wall thickening and associated pericolonic stranding in the sigmoid colon in a region containing multiple diverticula. No obstruction. No pneumatosis. Appendix: Appendix not identified with certainty but no right lower quadrant inflammatory change to suggest acute appendicitis. Intraperitoneal space: No free fluid. No organized fluid collection. No free air. Vasculature: Unremarkable. No aneurysm. Lymph nodes: No pathologically enlarged lymph nodes. Bladder: Unremarkable. Reproductive: Status post hysterectomy. Bones/joints: No acute osseous abnormality. Osteopenia. Degenerative changes. Soft tissues: Unremarkable. IMPRESSION: 1. Acute sigmoid diverticulitis. No abscess, obstruction or free air. Follow-up to resolution is recommended. 2. Additional findings, as above. Electronically signed by: Saji Buckner On 12/09/2018 00:01:59 AM
[2018-12-09] MEDS ORDERED: metroNIDAZOLE 500 MG in APPROPRIATE DILUENT 1 EA IV ONE (00:15)
[2018-12-09] MEDS ORDERED: MORPHINE 4 MG/ML 1ML VIAL/SYRINGE (J2270) IV ONE (00:15)
[2018-12-09] MEDS ORDERED: CIPROFLOXACIN 400 MG in APPROPRIATE DILUENT 1 EA IV ONE (00:15)
[2018-12-09] MEDS ORDERED: APAP325T4 PO (00:59)
[2018-12-09] MEDS ORDERED: MOM 30ML SUSPENSION UDC PO PRN (01:00)
[2018-12-09] MEDS ORDERED: MAALOX 30 ML SUSP *UDC PO PRN (01:00)
--- NOTE | 2018-12-09 01:12 | HPEPDOC ---
General Date of Admission 12/09/18 Date of Service: Dec 09, 2018 Attending Physician: DAYO VERDUGO MD Chief Complaint The patient is a 83-year-old female admitted with a reason for visit of Abd Pain . Source: Patient Exam Limitations: No limitations Timing/Duration: Day(s) Severity: Moderate Associated Symptoms: Other (abdominal and back pain) History of Present Illness 83 years old female with past medical history of hypertension, hyperlipidemia, GERD, arthritis, scoliosis, status post bilateral carpal tunnel heart rate of left elbow, hysterectomy, cholecystectomy and appendectomy. Also history of depression and COPD patient has not presented in the ED with chief complaints of abdominal pain. Patient was seen at the urgent care center, but was referred h ere for the worsening pain. Patient complaining of dull generalized lower abdominal pain, non-radiating and sent to the back since this morning, persistent not relieved with any medication or any position, not absent exacerbated by any position are any other symptoms not associated with any other symptoms such as nausea, vomiting or diarrhea. Since was found to have a sigmoid diverticulitis on CT of the abdomen and is being admitted for admission and further observation Home Medications Scheduled Aspirin (Aspirin EC) 81 Mg Tabec, 81 MG PO QHS, (Reported) Candesartan Cilexetil (Candesartan Cilexetil) 8 Mg Tablet, 8 MG PO DAILY, (Reported) Carvedilol (Carvedilol) 6.25 Mg Tab, 6.25 MG PO BID, (Reported) Cetirizine HCl (Cetirizine HCl) 10 Mg Tablet, 10 MG PO DAILY, (Reported) Lansoprazole (Lansoprazole) 30 Mg Cap, 30 MG PO DAILY, (Reported) Montelukast Sodium (Montelukast Sodium) 10 Mg Tablet, 10 MG PO DAILY, (Reported) Rosuvastatin Calcium (Crestor) 40 Mg Tab, 40 MG PO DAILY, (Reported) Scheduled PRN Acetaminophen (Acetaminophen) 325 Mg Tablet, 650 MG PO Q4-6HP PRN for PAIN, (Reported) Allergies Coded Allergies: No Known Allergies (Unverified , 10/30/18) Past Medical History Medical History Hypertension, hyperlipidemia, OPD/asthma, GERD, arthritis, scoliosis Surgical History Appendectomy, cholecystectomy, hysterectomy, bilateral carpal tunnel repair with hardware to left elbow Social History * Smoker: Denies Alcohol: Denies Drugs: denies A-FIB/CHADSVASC A-FIB History Current/History of A-Fib/PAF?: No Review of Systems Constitutional: Denies: Chills, Fever, Malaise, Night Sweats, Weakness, Fatigue, Weight Loss, Lethargy, Other Eyes: Denies: Pain, Vision change, Conjunctivae inflammation, Eyelid inflammation, Redness, Other ENT: Denies: Head Aches, Ear Pain, Dysphagia, Sinus Congestion, Post Nasal Drip, Sore Throat, Epistaxis, Other Symptoms Skin: Denies: Rash, Lesions, Jaundice, Bruising, Itching, Dry, Breakdown, Nail Changes, Other Pulmonary: Denies: Dyspnea, Cough, Pleuritic Chest Pain, Other Symptoms Cardiovascular: Denies: Chest Pain, Palpitations, Orthopnea, Paroxysmal Noc. Dyspnea, Edema, Lt Headedness, Other Symptoms Gastrointestinal: Reports: Abdominal Pain Genitourinary: Denies: Dysuria, Frequency, Incontinence, Hematuria, Retention, Other Symptoms Hematologic: Denies: Bruising, Bleeding Excessively, Petecchia, Purpura, Enlarged Lymph Nodes, Other Hematologic Endocrine: Denies: Polydipsia, Polyphagia, Polyuria, Heat Intolerance, Cold Intolerance, Other Endocrine Sx Musculoskeletal: Denies: Neck Pain, Back Pain, Shoulder Pain, Arm Pain, Hand Pain, Leg Pain, Foot Pain, Joint Pain, Muscle Pain, Spasms, Other Symptoms Neurological: Denies: Weakness, Numbness, Incoordination, Change in speech, Confusion, Seizures, Other Symptoms Psych: Denies: Mood Normal, Anxiety, Depression, Memory Issues, Thoughts of Self Harm, Anger, Thoughts of Harming Other, Other Psych Physical Examination General Exam: Positive: Alert, Cooperative Eye Exam: Positive: PERRLA, Conjunctiva & lids normal ENT Exam: Positive: Atraumatic, Mucous membr. moist/pink Neck Exam: Positive: Supple Chest Exam: Positive: Clear to auscultation, Normal air movement Heart Exam: Positive: Rate Normal, Normal S1, Normal S2 Abdomen Exam: Positive: Normal bowel sounds, Soft, Tenderness (. Positive tenderness at the suprapubic area and left lower quadrant on deep palpation. No rebound tenderness) Extremity Exam: Positive: Normal pulses Skin Exam: Positive: Nl turgor and temperature Neuro Exam: Positive: Strength at 5/5 X4 ext, Normal Tone, Sensation Intact Psych Exam: Positive: Mental status NL, Mood NL Vital Signs Vital Signs Date Time Temp Pulse Resp B/P (MAP) Pulse Ox O2 Delivery O2 Flow Rate FiO2 12/09/18 00:50 18 12/08/18 23:43 98.2 70 140/85 (103) 97 Room Air Laboratory Data Labs 24H Laboratory Tests 2 12/08/18 20:55: Urine Appearance CLEAR, Urine Color STRAW, Urine pH 7.0, Urine Specific Jasper 1.003, Urine Protein NEGATIVE, Urine Glucose (UA) NEGATIVE, Urine Ketones NEGATIVE, Urine Urobilinogen 0.2, Urine Bilirubin NEGATIVE, Urine Leukocyte Esterase NEGATIVE, Urine Blood NEGATIVE, Urine Nitrite NEGATIVE, Urine WBC (Auto) 1, Urine RBC (Auto) 1, Urine Hyaline Casts (Auto) 0, Urine Bacteria (Auto) NEGATIVE, Urine Squamous Epithelial Cells 0, Urine Sperm (Auto) 12/08/18 20:56: Immature Granulocyte % (Auto) 0.4, White Blood Count 11.4H, Red Blood Count 3.57L, Hemoglobin 11.4L, Hematocrit 35.2L, Mean Corpuscular Volume 98.6H, Mean Corpuscular Hemoglobin 31.9, Mean Corpuscular Hemoglobin Concent 32.4, Red Cell Distribution Width 14.1, Platelet Count 271, Neutrophils (%) (Auto) 69.4H, Lymphocytes (%) (Auto) 20.5L, Monocytes (%) (Auto) 8.1H, Eosinophils (%) (Auto) 1.2, Basophils (%) (Auto) 0.4, Neutrophils # (Auto) 7.9H, Lymphocytes # (Auto) 2.3, Monocytes # (Auto) 0.9H, Eosinophils # (Auto) 0.1, Basophils # (Auto) 0.1, Nucleated Red Blood Cells % (auto) 0.0, Prothrombin Time 14.0, Prothromb Time International Ratio 1.11, Activated Partial Thromboplast Time 29.8, Anion Gap 6L, Glomerular Filtration Rate > 60.0, Calcium Level 8.8, Aspartate Amino Transf (AST/SGOT) 15, Alanine Aminotransferase (ALT/SGPT) 21, Alkaline Phosphatase 77, Total Bilirubin 0.4, Direct Bilirubin 0.1, Total Protein 6.2L, Albumin 3.0L, Albumin/Globulin Ratio 0.94L, Lipase 195 CBC/BMP Laboratory Tests 12/08/18 20:56 Red Blood Count 3.57 L, Mean Corpuscular Volume 98.6 H, Mean Corpuscular Hemoglobin 31.9, Mean Corpuscular Hemoglobin Concent 32.4, Red Cell Distribution Width 14.1, Neutrophils (%) (Auto) 69.4 H, Lymphocytes (%) (Auto) 20.5 L, Monocytes (%) (Auto) 8.1 H, Eosinophils (%) (Auto) 1.2, Basophils (%) (Auto) 0.4, Neutrophils # (Auto) 7.9 H, Lymphocytes # (Auto) 2.3, Monocytes # (Auto) 0.9 H, Eosinophils # (Auto) 0.1, Basophils # (Auto) 0.1 Microbiology Microbiology 12/08/18 Urine Culture, Received Pending Problems (1) Diverticulitis Status: Acute Problem Text: 83 years old female presented with abdominal pain on CAT scan of the abdomen was diagnosed with sigmoid diverticulitis. She does have a very sm all elevation in WBC count, but otherwise afebrile and nontoxic looking Admit to medical floor IV fluids normal saline at 70 mL per hour Cipro 400 mg IV every 12 hours Flagyl 500 mg IV every 8 hours Zofran 4 mg IV every 4 hours when necessary Morphine sulfate 2 mg IV every 4 hours when necessary DVT prophylaxis with Lovenox Clear liquid diet Activity as tolerated Repeat blood work in a.m. (2) COPD (chronic obstructive pulmonary disease) Status: Chronic Problem Text: Stable continue home medications (3) Hypertension Status: Chronic Problem Text: Under control. Continue home meds (4) Hyperlipidemia Status: Chronic Problem Text: Under control. Continue home meds (5) Lumbar degenerative disc disease Status: Chronic Problem Text: Stable (6) Depression with anxiety Status: Chronic Problem Text: Under control with home meds Plan / VTE VTE Prophylaxis Ordered?: Yes DAYO VERDUGO MD Dec 09, 2018 01:11
[2018-12-09] MEDS: NS 1,000 ML IV SCH ×2 (01:30→15:33)
[2018-12-09] MEDS ORDERED: METAL LOCK LOOP XX ONE (03:42)
[2018-12-09 08:00] VITALS: BP 136/59
[2018-12-09] MEDS: metroNIDAZOLE 500 MG in APPROPRIATE DILUENT 1 EA IV SCH ×2 (08:04→17:24)
[2018-12-09] MEDS: CARVedilol 6.25 MG TAB PO SCH ×2 (08:05→20:40)
[2018-12-09] MEDS: PANTOPRAZOLE 40MG TAB (PROTONIX) PO SCH (08:05)
[2018-12-09] MEDS: MONTELUKAST 10 MG TAB PO SCH (08:05)
[2018-12-09] MEDS: DOCUSATE SODIUM 100 MG CAP PO SCH ×2 (08:05→20:40)
[2018-12-09] MEDS: ENOXAPARIN 40 MG/0.4 ML SYRINGE (J1650) SC SCH (08:05)
[2018-12-09] MEDS: CANDESARTAN 4MG TABLET PO SCH (09:00)
[2018-12-09] MEDS: ROSUVASTATIN 10 MG TAB (CRESTOR) PO SCH (10:44)
[2018-12-09] MEDS: MORPHINE 4 MG/ML 1ML VIAL/SYRINGE (J2270) IV PRN (10:49)
[2018-12-09] MEDS: CIPROFLOXACIN 400 MG in APPROPRIATE DILUENT 1 EA IV SCH (13:23)
[2018-12-09 16:00] VITALS: BP 145/64
--- NOTE | 2018-12-09 20:05 | IPNPDOC ---
Text Note Date of Service The patient was seen on 12/09/18. NOTE Subjective: Patient still has complaints of abdominal pain, she is tolerating minimal PO intake but is attempting to advance her diet. Objective Vital signs: see below GEN: NAD, healthy female HEENT: MMM, EOMI, neck supple Lymph: lymphadenopathy Cardio: S1/s2 present, RRR Lungs: CTA b/l, good air entry, no wheezing Abd: soft, tender to palpation in LLQ and suprapubic area, bowel sounds present, no guarding or rigidity. Ext: no focal weakness, pulses palpable throughout MSK good strength throughout, good muscle tone Neuro: A&Ox3 Psych: Normal mood and affect CT abd/pelvis reviewed. 83 y/o F with HTN, HLD, GERD, arthritis, scoliosis, hysterectomy, cholecystectomy, appendectomy, depression, COPD presents for worsening abdominal pain, CT scan shows sigmoid diverticulitis. Patient admitted for further management Acute sigmoid diverticulitis -IVF at 70cc/hr -Cipro 400mg q12, Flagyl 500mg q8 both IV -Zofran 4mg IV q4 PRN -Morphine 2mg q4 PRN -advance to clear liquid diet, will monitor intake as patient was having minimal intake this AM with continued abdominal pain. COPD: stable, continue home medications HTN/HLD: stable, chronic, continue home medications Depression with anxiety: chronic, continue home medications. Dvt ppx Vital Signs Date Time Temp Pulse Resp B/P (MAP) Pulse Ox O2 Delivery O2 Flow Rate FiO2 12/09/18 16:00 97.8 63 18 145/64 (91) 95 12/09/18 10:59 16 12/09/18 10:49 18 12/09/18 08:05 61 136/59 12/09/18 08:00 97.7 61 18 136/59 (84) 97 12/09/18 07:28 97.0 96 20 118/58 (78) 96 Room Air 12/09/18 03:46 57 97 12/09/18 03:31 56 97 12/09/18 03:16 60 98 12/09/18 03:01 65 96 12/09/18 02:46 55 97 12/09/18 02:31 55 96 12/09/18 02:16 60 97 12/09/18 02:01 57 96 12/09/18 01:46 61 96 12/09/18 01:31 65 97 12/09/18 01:16 62 95 12/09/18 01:01 66 96 12/09/18 00:50 18 12/09/18 00:46 66 96 Room Air 12/09/18 00:16 64 18 97 Room Air 12/09/18 00:15 161/67 (98) 12/09/18 00:01 67 18 97 Room Air 12/09/18 00:00 173/77 (109) 12/08/18 23:46 67 18 96 Room Air 12/08/18 23:45 148/64 (92) 12/08/18 23:43 98.2 70 16 140/85 (103) 97 Room Air 12/08/18 23:33 140/85 (103) 12/08/18 23:31 67 98 12/08/18 22:31 69 98 12/08/18 22:16 92 98 12/08/18 22:01 70 98 12/08/18 21:46 68 98 12/08/18 21:31 70 98 12/08/18 21:16 73 98 12/08/18 21:01 66 97 12/08/18 20:46 66 96 12/08/18 20:31 66 97 12/08/18 20:16 69 98 Laboratory Tests 12/08/18 20:55: Urine Appearance CLEAR, Urine Color STRAW, Urine pH 7.0, Urine Specific [place] 1.003, Urine Protein NEGATIVE, Urine Glucose (UA) NEGATIVE, Urine Ketones NEGATIVE, Urine Urobilinogen 0.2, Urine Bilirubin NEGATIVE, Urine Leukocyte Esterase NEGATIVE, Urine Blood NEGATIVE, Urine Nitrite NEGATIVE, Urine WBC (Auto) 1, Urine RBC (Auto) 1, Urine Hyaline Casts (Auto) 0, Urine Bacteria (Auto) NEGATIVE, Urine Squamous Epithelial Cells 0, Urine Sperm (Auto) 12/08/18 20:56: White Blood Count 11.4H, Red Blood Count 3.57L, Hemoglobin 11.4L, Hematocrit 35.2L, Mean Corpuscular Volume 98.6H, Mean Corpuscular Hemoglobin 31.9, Mean Corpuscular Hemoglobin Concent 32.4, Red Cell Distribution Width 14.1, Platelet Count 271, Neutrophils (%) (Auto) 69.4H, Lymphocytes (%) (Auto) 20.5L, Monocytes (%) (Auto) 8.1H, Eosinophils (%) (Auto) 1.2, Basophils (%) (Auto) 0.4, Neutrophils # (Auto) 7.9H, Lymphocytes # (Auto) 2.3, Monocytes # (Auto) 0.9H, Eosinophils # (Auto) 0.1, Basophils # (Auto) 0.1, Immature Granulocyte % (Auto) 0.4, Nucleated Red Blood Cells % (auto) 0.0, Prothrombin Time 14.0, Prothromb Time International Ratio 1.11, Activated Partial Thromboplast Time 29.8, Sodium Level 142, Potassium Level 4.1, Chloride Level 109H, Carbon Dioxide Level 27, Anion Gap 6L, Blood Urea Nitrogen 12, Creatinine 0.87, Glomerular Filtration Rate > 60.0, Fasting Glucose 92, Calcium Level 8.8, Aspartate Amino Transf (AST/ SGOT) 15, Alanine Aminotransferase (ALT/SGPT) 21, Alkaline Phosphatase 77, Total Bilirubin 0.4, Direct Bilirubin 0.1, Total Protein 6.2L, Albumin 3.0L, Albumin/Globulin Ratio 0.94L, Lipase 195 Current Medications Medications (Trade) Dose Ordered Sig/Shaila Route PRN Reason Start Time Stop Time Status Last Admin Dose Admin Carvedilol (COReg) 6.25 mg BID PO 12/08/18 21:00 12/09/18 08:05 6.25 MG Ciprofloxacin 400 mg/IV Miscellaneous Supplies 200 ml @ 200 mls/hr Q12H IV 12/09/18 14:00 12/09/18 13:23 200 MLS/HR Docusate Sodium (Colace) 100 mg BID PO 12/08/18 21:00 12/09/18 08:05 100 MG Enoxaparin Sodium (Lovenox) 40 mg DAILY SC 12/09/18 09:00 12/09/18 08:05 40 MG Metronidazole 500 mg/IV Miscellaneous Supplies 100 ml @ 100 mls/hr Q8H IV 12/09/18 09:00 12/09/18 17:24 100 MLS/HR Montelukast Sodium (Singulair) 10 mg DAILY PO 12/09/18 09:00 12/09/18 08:05 10 MG Morphine Sulfate (Morphine Sulfate Inj) 2 mg Q6HP PRN IV PAIN 12/09/18 01:00 12/09/18 10:49 2 MG Pantoprazole Sodium (Protonix) 40 mg DAILY PO 12/09/18 09:00 12/09/18 08:05 40 MG Rosuvastatin Calcium (Crestor) 40 mg DAILY PO 12/09/18 09:00 12/09/18 10:44 40 MG Sodium Chloride 1,000 ml @ 70 mls/hr [id number] IV 12/09/18 01:15 12/09/18 15:33 70 MLS/HR VS,Dangeloe, I+O VS, Chemobone, I+O Laboratory Tests 12/08/18 20:56 Red Blood Count 3.57 L, Mean Corpuscular Volume 98.6 H, Mean Corpuscular Hemoglobin 31.9, Mean Corpuscular Hemoglobin Concent 32.4, Red Cell Distribution Width 14.1, Neutrophils (%) (Auto) 69.4 H, Lymphocytes (%) (Auto) 20.5 L, Monocytes (%) (Auto) 8.1 H, Eosinophils (%) (Auto) 1.2, Basophils (%) (Auto) 0.4, Neutrophils # (Auto) 7.9 H, Lymphocytes # (Auto) 2.3, Monocytes # (Auto) 0.9 H, Eosinophils # (Auto) 0.1, Basophils # (Auto) 0.1 Vital Signs Date Time Temp Pulse Resp B/P (MAP) Pulse Ox O2 Delivery O2 Flow Rate FiO2 12/09/18 16:00 97.8 63 18 145/64 (91) 95 12/09/18 07:28 Room Air MARTY JANSEN MD Dec 09, 2018 20:05
[2018-12-09] MEDS: ACETAMINOPHEN TAB 650MG DOSE (2X325MG) PO PRN (20:39)
[2018-12-09] MEDS: ASPIRIN 81 MG ENTERIC TAB PO SCH (20:41)
[2018-12-09] MEDS: ONDANSETRON 4MG/2ML VIAL (J2405) IV PRN (21:19)
[2018-12-09 22:00] VITALS: BP 137/62
[2018-12-10] MEDS: metroNIDAZOLE 500 MG in APPROPRIATE DILUENT 1 EA IV SCH ×3 (01:07→17:24)
[2018-12-10] MEDS: CIPROFLOXACIN 400 MG in APPROPRIATE DILUENT 1 EA IV SCH ×2 (02:09→13:44)
[2018-12-10] MEDS: ACETAMINOPHEN TAB 650MG DOSE (2X325MG) PO PRN (03:21)
[2018-12-10 06:00] VITALS: BP 147/69
[2018-12-10] MEDS: NS 1,000 ML IV SCH (06:15)
[2018-12-10] MEDS: MORPHINE 4 MG/ML 1ML VIAL/SYRINGE (J2270) IV PRN ×3 (06:30→23:57)
[2018-12-10 06:34] LABS: HEMATOCRIT 30.4 % (36.0-47.0); HEMOGLOBIN 9.6 g/dl (12.0-15.5); MEAN CORPUSCULAR HGB CONC 31.6 g/dl (32.0-36.5); MEAN CORPUSCULAR VOLUME 98.1 fl (80.0-96.0); PLATELET COUNT, AUTOMATED 244 10^3/uL (150-450)
[2018-12-10 06:56] LABS: ALBUMIN 2.5 GM/DL (3.2-5.2); ALT/SGPT 19 U/L (12-78); BILIRUBIN,TOTAL 0.4 MG/DL (0.2-1.0); BLOOD UREA NITROGEN 9 MG/DL (7-18); CALCIUM LEVEL 8.3 MG/DL (8.8-10.2); CARBON DIOXIDE LEVEL 25 MEQ/L (21-32); CHLORIDE LEVEL 115 MEQ/L (98-107); CREATININE FOR GFR 0.78 MG/DL (0.55-1.30); GLOMERULAR FILTRATION RATE > 60.0 (>32); GLUCOSE, FASTING 90 MG/DL (70-100); MAGNESIUM LEVEL 1.5 MG/DL (1.8-2.4); SODIUM LEVEL 145 MEQ/L (136-145); TOTAL PROTEIN 5.6 GM/DL (6.4-8.2)
[2018-12-10] MEDS: ONDANSETRON 4MG/2ML VIAL (J2405) IV PRN (08:45)
[2018-12-10] MEDS: MONTELUKAST 10 MG TAB PO SCH (08:45)
[2018-12-10] MEDS: CARVedilol 6.25 MG TAB PO SCH ×2 (08:50→20:02)
[2018-12-10] MEDS: PANTOPRAZOLE 40MG TAB (PROTONIX) PO SCH (08:51)
[2018-12-10] MEDS: ROSUVASTATIN 10 MG TAB (CRESTOR) PO SCH (08:51)
[2018-12-10] MEDS: ENOXAPARIN 40 MG/0.4 ML SYRINGE (J1650) SC SCH (08:51)
[2018-12-10] MEDS: DOCUSATE SODIUM 100 MG CAP PO SCH ×2 (08:51→20:02)
[2018-12-10] MEDS: CANDESARTAN 4MG TABLET PO SCH (10:41)
[2018-12-10] MEDS: MAG SULF 1GM/100ML (MAG RUN) 1 GM in APPROPRIATE DILUENT 1 EA IV SCH ×2 (12:27→14:58)
[2018-12-10 14:00] VITALS: BP 90/50
[2018-12-10 17:11] VITALS: BP 112/68
[2018-12-10] MEDS: ASPIRIN 81 MG ENTERIC TAB PO SCH (20:02)
--- NOTE | 2018-12-10 20:46 | IPNPDOC ---
Date Seen The patient was seen on 12/10/18. Progress Note Subjective: This is an 83 yo female - admitted for abd pain 2/2 acute diverticulitis. Patient continues to c/o abd pain but improved and she tolerated CLD . Objective Vital signs: see below GEN: NAD, healthy female HEENT: PERRLA, EOMI, neck supple, no lymphadenopathy Cardio: S1/s2 present, RRR, no MRGs Lungs: CTA b/l, good air entry, no wheezing, no crackles or rhonchi Abd: soft, decreased bowel sounds throughout, suprapubic tenderness noted, no guarding or rigidity. Ext: no focal weakness, pulses palpable throughout MSK good strength throughout, good muscle tone Neuro: A&Ox3 Psych: Normal mood and affect Assessment and plan 83 y/o F with HTN, HLD, GERD, arthritis, scoliosis, hysterectomy, cholecystectomy, appendectomy, depression, COPD presents for worsening abdominal pain, CT scan shows sigmoid diverticulitis. Patient admitted for further management Acute sigmoid diverticulitis -Cipro 400mg q12, Flagyl 500mg q8 both IV -Zofran 4mg IV q4 PRN -Morphine 2mg q4 PRN -advance diet as tolerated - advanced to soft COPD: stable, continue home medications HTN/HLD: stable, chronic, continue home medications Depression with anxiety: chronic, continue home medications. Dvt ppx - on lovenox VS, I&O, 24H, Fishbone Vital Signs/I&O Vital Signs Date Time Temp Pulse Resp B/P (MAP) Pulse Ox O2 Delivery O2 Flow Rate FiO2 12/10/18 20:02 78 157/69 12/10/18 14:00 96.7 16 97 12/09/18 07:28 Room Air I&O- Last 24 Hours up to 6 AM 12/10/18 06:00 Intake Total 1140 ml Output Total 0 ml Balance 1140 ml Laboratory Data 24H LABS Laboratory Tests 2 12/10/18 06:13: Nucleated Red Blood Cells % (auto) 0.0, Anion Gap 5L, Glomerular Filtration Rate > 60.0, Blood Urea Nitrogen 9, Creatinine 0.78, Sodium Level 145, Potassium Level 4.0, Chloride Level 115H, Carbon Dioxide Level 25, Calcium Level 8.3L, Aspartate Amino Transf (AST/SGOT) 15, Alanine Aminotransferase (ALT/SGPT) 19, Alkaline Phosphatase 65, Total Bilirubin 0.4, Total Protein 5.6L, Albumin 2.5L, Magnesium Level 1.5L, Albumin/Globulin Ratio 0.81L CBC/BMP Laboratory Tests 12/10/18 06:13 Red Blood Count 3.10 L, Mean Corpuscular Volume 98.1 H, Mean Corpuscular Hemoglobin 31.0, Mean Corpuscular Hemoglobin Concent 31.6 L, Red Cell Distr ibution Width 14.1, Calcium Level 8.3 L, Aspartate Amino Transf (AST/SGOT) 15, Alanine Aminotransferase (ALT/SGPT) 19, Alkaline Phosphatase 65, Total Bilirubin 0.4, Total Protein 5.6 L, Albumin 2.5 L Microbiology Microbiology 12/08/18 Urine Culture - Final, Complete LETY SHER MD Dec 10, 2018 20:46
[2018-12-10 21:00] VITALS: BP 157/69
[2018-12-11] MEDS: metroNIDAZOLE 500 MG in APPROPRIATE DILUENT 1 EA IV SCH ×2 (00:24→09:09)
[2018-12-11] MEDS: CIPROFLOXACIN 400 MG in APPROPRIATE DILUENT 1 EA IV SCH ×2 (01:37→14:00)
[2018-12-11 06:00] VITALS: BP 153/68
[2018-12-11 09:09] VITALS: BP 132/94
[2018-12-11] MEDS: PANTOPRAZOLE 40MG TAB (PROTONIX) PO SCH (09:09)
[2018-12-11] MEDS: DOCUSATE SODIUM 100 MG CAP PO SCH (09:09)
[2018-12-11] MEDS: CANDESARTAN 4MG TABLET PO SCH (09:09)
[2018-12-11] MEDS: CARVedilol 6.25 MG TAB PO SCH (09:09)
[2018-12-11] MEDS: MONTELUKAST 10 MG TAB PO SCH (09:09)
[2018-12-11] MEDS: ROSUVASTATIN 10 MG TAB (CRESTOR) PO SCH (09:09)
[2018-12-11] MEDS: ENOXAPARIN 40 MG/0.4 ML SYRINGE (J1650) SC SCH (09:10)
[2018-12-11] MEDS ORDERED: FLAG500T PO (14:46)
[2018-12-11] MEDS ORDERED: CIPR5SUS PO (14:46)
== END 2018-12-11 15:40 | disposition home or self-care (01) | DRG 392 ==
LOC: M ED 18:12 → M ED INP 12-09 00:56 → M MS4PR 12-09 07:33
PROVIDERS: ADMIT Internal Medicine; ATTEND Internal Medicine
DX: K57.32 Diverticulitis of large intestine without perforation or abscess without bleeding (principal); I10 Essential (primary) hypertension; E78.5 Hyperlipidemia, unspecified; E83.42 Hypomagnesemia; K21.9 Gastro-esophageal reflux disease without esophagitis; M41.9 Scoliosis, unspecified; M51.36 Other intervertebral disc degeneration, lumbar region; M19.90 Unspecified osteoarthritis, unspecified site; F32.9 Major depressive disorder, single episode, unspecified; J44.9 Chronic obstructive pulmonary disease, unspecified; Z90.49 Acquired absence of other specified parts of digestive tract; Z79.82 Long term (current) use of aspirin; Z90.710 Acquired absence of both cervix and uterus; Z79.899 Other long term (current) drug therapy

== ENCOUNTER → 2019-01-02 | Outpatient (CLI) | payer MEDICARE, OTHER ==
[~2019-01-02] MED LIST changes: -ALL10TAB28 PO; +ALL10TAB29 PO; +APAP325T4 PO; +CIPR500T3 PO; +CIPR5SUS PO; +E-Z-GAS II EFFERVESCENT PACKET (SODIUM BICARB./CITRIC ACID/SIMETHICONE) As Ordered ONE; +E-Z-HD 98% w/w 340GM SUSP BTL As Ordered ONE; +E-Z-PAQUE 96% w/w SUSP 176GM BTL As Ordered ONE; +FLAG500T PO; +MUCI600T31 PO; -OMEP40CA2 PO; +OMEP40CA97 PO; +TESS100C PO; +[UNRECOGNIZED DRUG - CODE] PO
--- NOTE | 2019-01-02 19:43 | REP ---
Examination Requested: Esophagram Barium Swallow Reason For Exam/Comment: Dysphasia ] Esophagram: The procedure was performed JASMYNE Forrester, under the direct supervision of [ ]. The images were reviewed with [ ] . A single PA chest x-ray is submitted as a retention representative film. The superior mediastinal structures are midline. The heart size is within normal limits. The lungs are clear. Liquid barium and gas producing granules were given in the erect position as well as liquid barium in the prone oblique position, in order to perform a double contrast esophagram examination. Oral and pharyngeal stages of the examination were unremarkable. There are posterior esophageal wall indentations at the C4/5, C5/6 and C6/7 cervical disc spaces, these areas correlate with anterior disc protrusions visualized on an MRI dated 11/25/2015. Esophageal transport is efficient and there is no esophagitis, or mucosal ring noted. There is a web visualized at the C7-T1 disc space. There is no hiatal hernia noted. Gastroesophageal reflux was visualized past the level of the rob. Impression: 1. 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 2. Esophageal reflux noted past the level of the rob. 0.2 minutes of fluoroscopy time was utilized for this procedure. Some fluoroscopic images are performed with last image hold technology. These images require no additional radiation. Reviewed by JASMYNE Jackson 01/02/2019 05:29 P Electronically Signed by Sandip Mcconnell MD 01/02/2019 07:34 P
== END ==
LOC: M RAD 08:55
PROVIDERS: ATTEND Otolaryngology
DX: K21.9 Gastro-esophageal reflux disease without esophagitis (principal); R13.10 Dysphagia, unspecified; Q39.4 Esophageal web

== ENCOUNTER → 2019-01-14 | Outpatient (REF) | payer MEDICARE, OTHER ==
[~2019-01-14] MED LIST changes: -CIPR500T3 PO; -E-Z-GAS II EFFERVESCENT PACKET (SODIUM BICARB./CITRIC ACID/SIMETHICONE) As Ordered ONE; -E-Z-HD 98% w/w 340GM SUSP BTL As Ordered ONE; -E-Z-PAQUE 96% w/w SUSP 176GM BTL As Ordered ONE; -MUCI600T31 PO; +OMEP40CA2 PO; -OMEP40CA97 PO; -TESS100C PO; -[UNRECOGNIZED DRUG - CODE] PO
[2019-01-14 13:54] LABS: APPEARANCE, URINE CLEAR (CLEAR); BACTERIA, URINE AUTO 1+ (NEGATIVE); BILIRUBIN, URINE AUTO NEGATIVE (NEGATIVE); BLOOD, URINE BLOOD NEGATIVE (NEGATIVE); COLOR, URINE STRAW (YELLOW); GLUCOSE, URINE (UA) AUTO NEGATIVE (NEGATIVE); KETONE, URINE AUTO NEGATIVE (NEGATIVE); LEUKOCYTE ESTERASE, URINE AUTO TRACE (NEGATIVE); NITRITE, URINE AUTO NEGATIVE (NEGATIVE); PROTEIN, URINE AUTO NEGATIVE (NEGATIVE); RBC, URINE AUTO 0 /HPF (0-3); SPECIFIC GRAVITY URINE AUTO 1.003 (1.002-1.035); SQUAMOUS EPITHELIAL CELL UR AU 0 /HPF (0-6); UROBILINOGEN, URINE AUTO 0.2 mg/dL (0.0-2.0); WBC, URINE AUTO 7 /HPF (0-3)
== END ==
LOC: M SMT 13:07
PROVIDERS: ATTEND Nurse Practitioner Family
DX: R30.0 Dysuria (principal)
CPT/HCPCS: 81001; 87086; G0463

== ENCOUNTER → 2019-01-15 | Outpatient (REF) | payer MEDICARE, OTHER ==
[~2019-01-15] MED LIST changes: +CIPR500T3 PO; +MUCI600T31 PO; -OMEP40CA2 PO; +OMEP40CA97 PO; +TESS100C PO; +[UNRECOGNIZED DRUG - CODE] PO
== END ==
LOC: M LAB REF 10:39
PROVIDERS: ATTEND Physician Assistant Medical
DX: R19.7 Diarrhea, unspecified (principal)

== ENCOUNTER 2019-03-09 07:33 | Day surgery (SDC) | payer MEDICARE, OTHER ==
[~2019-03-09] VITALS: Ht 157.5 cm; Wt 68.9 kg
[~2019-03-09 07:33] MED LIST changes: -MUCI600T31 PO; +NS 1,000 ML IV ONE; -TESS100C PO
[2019-03-09] MEDS ORDERED: LIDOCAINE 2% INJ 100 MG/5 ML SDV (FOR ANES.) As Ordered ONE (08:16)
[2019-03-09] MEDS ORDERED: PROPOFOL 200 MG/20 ML VIAL As Ordered ONE (08:16)
--- NOTE | 2019-03-09 09:08 | ROOR ---
Patient Name: Betsey Xiao Procedure Date: 03/09/2019 8:36 AM Date of : 1935 Age: 83 Room: [facility] Gender: Female Note Status: Finalized Procedure: Colonoscopy Indications: Clinically significant diarrhea of unexplained origin Providers: Dave AVILA MD Referring MD: Deborah Pascual Requesting Provider: Medicines: Monitored Anesthesia Care Complications: No immediate complications. Procedure: Pre-Anesthesia Assessment: - The heart rate, respiratory rate, oxygen saturations, blood pressure, adequacy of pulmonary ventilation, and response to care were monitored throughout the procedure. The Colonoscope was introduced through the anus and advanced to the terminal ileum, with identification of the appendiceal orifice and IC valve. The colonoscopy was performed without difficulty. The patient tolerated the procedure well. The quality of the bowel preparation was good. Findings: The perianal and digital rectal examinations were normal. Three sessile polyps were found in the splenic flexure, hepatic flexure and ascending colon. The polyps were 3 to 5 mm in size. These polyps were removed with a cold snare. Resection and retrieval were complete. Multiple medium-mouthed diverticula were found in the sigmoid colon. There was narrowing of the colon in association with the diverticular opening. Small Internal Hemorrhoids. Biopsies for histology were taken with a cold forceps from the entire colon for evaluation of microscopic colitis. Impression: - Three 3 to 5 mm polyps at the splenic flexure, at the hepatic flexure and in the ascending colon, removed with a cold snare. Resected and retrieved. - Moderate diverticulosis in the sigmoid colon. There was narrowing of the colon in association with the diverticular opening. - Small Internal Hemorrhoids. - Biopsies were taken with a cold forceps from the entire colon for evaluation of microscopic colitis. Recommendation: - Telephone endoscopist for pathology results in 2 weeks. - Suggest repeat colonoscopy in 3 yrs for colon polyps surveillance-to be discussed on follow up in 3 years. Dave Avila MD Dave AVILA MD 03/09/2019 9:07:56 AM Electronically signed by Dave AVILA MD Number of Addenda: 0 Note Initiated On: 03/09/2019 8:36 AM Estimated Blood Loss: Estimated blood loss: none.
[2019-03-09 09:40] VITALS: BP 105/52
== END 2019-03-09 09:51 | disposition home or self-care (01) ==
LOC: M OPP 07:33
PROVIDERS: ATTEND Internal Medicine Gastroenterology
DX: D12.3 Benign neoplasm of transverse colon (principal); D12.2 Benign neoplasm of ascending colon; K64.8 Other hemorrhoids; K57.30 Diverticulosis of large intestine without perforation or abscess without bleeding; R19.7 Diarrhea, unspecified; I25.2 Old myocardial infarction; Z79.82 Long term (current) use of aspirin; Z79.899 Other long term (current) drug therapy; Z80.3 Family history of malignant neoplasm of breast; Z87.891 Personal history of nicotine dependence

== ENCOUNTER 2019-03-29 03:12 | Emergency (ER) | payer MEDICARE, OTHER ==
[~2019-03-29] VITALS: Ht 157.5 cm; Wt 68.2 kg
[~2019-03-29 03:12] MED LIST changes: -NS 1,000 ML IV ONE
[2019-03-29 03:40] LABS: BASO # 0.1 10^3/uL (0.0-0.2); BASO % 1.1 % (0.0-1.0); EOS # 0.4 10^3/uL (0.0-0.5); EOS % 4.5 % (0.0-3.0); HEMATOCRIT 37.7 % (36.0-47.0); HEMOGLOBIN 11.9 g/dl (12.0-15.5); LYMPH # 3.9 10^3/uL (1.5-5.0); LYMPH % 39.3 % (24.0-44.0); MEAN CORPUSCULAR HEMOGLOBIN 30.4 pg (27.0-33.0); MEAN CORPUSCULAR HGB CONC 31.6 g/dl (32.0-36.5); MEAN CORPUSCULAR VOLUME 96.2 fl (80.0-96.0); MONO # 0.8 10^3/uL (0.0-0.8); MONO % 8.1 % (0.0-5.0); NEUTROPHILS # 4.5 10^3/uL (1.5-8.5); NEUTROPHILS % 45.8 % (36.0-66.0); PLATELET COUNT, AUTOMATED 374 10^3/uL (150-450); RED BLOOD COUNT 3.92 10^6/uL (4.00-5.40); WHITE BLOOD COUNT 9.9 10^3/uL (4.0-10.0)
[2019-03-29 04:12] LABS: ALT/SGPT 39 U/L (12-78); BILIRUBIN,TOTAL 0.4 MG/DL (0.2-1.0); BLOOD UREA NITROGEN 18 MG/DL (7-18); CALCIUM LEVEL 8.6 MG/DL (8.8-10.2); CARBON DIOXIDE LEVEL 27 MEQ/L (21-32); CHLORIDE LEVEL 108 MEQ/L (98-107); CREATININE FOR GFR 0.78 MG/DL (0.55-1.30); GLOMERULAR FILTRATION RATE > 60.0 (>32); GLUCOSE, FASTING 87 MG/DL (70-100); POTASSIUM SERUM 4.2 MEQ/L (3.5-5.1); SODIUM LEVEL 142 MEQ/L (136-145); TOTAL PROTEIN 6.3 GM/DL (6.4-8.2)
[2019-03-29] MEDS ORDERED: ISOVUE-370 76% 100ML VIAL (Q9967) As Ordered ONE (04:37)
--- NOTE | 2019-03-29 05:27 | REPVR ---
PROCEDURE INFORMATION: Exam: CT Head Without Contrast Exam date and time: 03/29/2019 5:13 AM Clinical history: 83 years old, female; Pain; Headache not specified; Additional info: Sudden onset headache TECHNIQUE: Imaging protocol: Computed tomography of the head without contrast. Radiation optimization: All CT scans at this facility use at least one of these dose optimization techniques: automated exposure control; mA and/or kV adjustment per patient size (includes targeted exams where dose is matched to clinical indication); or iterative reconstruction. COMPARISON: CT Head without contrast 2015-12-16 08:52 FINDINGS: Brain: Diffuse moderate cerebral age related volume loss. Moderate patchy low attenuation in the white matter compatible with moderate chronic small vessel ischemic disease. No midline shift, mass, fluid collection, or evidence of hemorrhage. Ventricles: Ventricular enlargement proportional to volume loss. Bones/joints: Unremarkable. No acute fracture. Sinuses: Visualized sinuses are unremarkable. No fluid levels. Mastoid air cells: Visualized mastoid air cells are well aerated. Soft tissues: Unremarkable. IMPRESSION: Moderate involutional changes, no acute intracranial abnormality. Electronically signed by: Dave White On 03/29/2019 05:26:48 AM
--- NOTE | 2019-03-29 05:33 | REPVR ---
PROCEDURE INFORMATION: Exam: CT Angiography Chest With Contrast Exam date and time: 03/29/2019 5:13 AM Clinical history: 83 years old, female; Cough; Additional info: SOB, cough TECHNIQUE: Imaging protocol: Computed tomographic angiography of the chest with intravenous contrast. 3D rendering: MIP reconstructed images were created and reviewed. Radiation optimization: All CT scans at this facility use at least one of these dose optimization techniques: automated exposure control; mA and/or kV adjustment per patient size (includes targeted exams where dose is matched to clinical indication); or iterative reconstruction. Contrast material: ISOVUE 370; Contrast volume: 75 ml; Contrast route: IV; COMPARISON: CT Chest with contrast 2018-10-24 08:00 FINDINGS: Limitations: Motion artifact does moderately limit the sensitivity of this examination. Pulmonary arteries: No filling defects in the pulmonary arteries to suggest pulmonary emboli. Aorta: Unremarkable. No aortic aneurysm. No aortic dissection. Lungs: Dependent subsegmental pulmonary atelectasis. Secretions and several bronchi with bronchial wall thickening. Mild groundglass opacities in the right lower lobe. Correlate for bronchiolitis. Pleural space: Unremarkable. No pneumothorax. No pleural effusion. Heart: Moderate coronary artery calcifications. Stomach and bowel: Gastric wall thickening, correlate for gastritis. Lymph nodes: Several small hilar lymph nodes, largest is a right hilar 7 mm short axis lymph node. Bones/joints: Mild to moderate thoracic spondylosis with exaggeration of the thoracic kyphosis and associated degenerative endplate spurring and disc space loss. Soft tissues: Unremarkable. IMPRESSION: 1. No filling defects in the pulmonary arteries to suggest pulmonary emboli. 2. Gastric wall thickening, correlate for gastritis. 3. Secretions and several bronchi with bronchial wall thickening. Mild groundglass opacities in the right lower lobe. Correlate for bronchiolitis. Electronically signed by: Dave White On 03/29/2019 05:33:19 AM
[2019-03-29] MEDS ORDERED: KETOROLAC 30 MG/ML VIAL (J1885) IV ONE (06:00)
[2019-03-29 06:30] VITALS: BP 161/74
[2019-03-29] MEDS ORDERED: BENZONATATE 100 MG CAP PO ONE (06:30)
[2019-03-29] MEDS ORDERED: guaiFENesin ER 600 MG TAB PO ONE (06:30)
[2019-03-29] MEDS ORDERED: MUCI600T31 PO (06:33)
[2019-03-29] MEDS ORDERED: TESS100C PO (06:33)
--- NOTE | 2019-03-29 08:26 | REP ---
Chest x-ray: Three views. History: Cough. Comparison study: July 13, 2016. Findings: EKG monitoring electrodes are seen overlying the chest. The lungs are well inflated and clear. The pleural angles are sharp. Heart is not enlarged. The aorta is calcific. No significant bony abnormality. Impression: No acute disease. Electronically Signed by Kole Robin MD 03/29/2019 08:17 A
--- NOTE | 2019-03-29 12:15 | ECGEPIP ---
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
== END 2019-03-29 07:21 | disposition home or self-care (01) ==
LOC: M ED 03:12
DX: R51 Headache (principal); J21.9 Acute bronchiolitis, unspecified; I10 Essential (primary) hypertension; Z79.899 Other long term (current) drug therapy; Z79.82 Long term (current) use of aspirin
CPT/HCPCS: 70450; 71046; 71275; 80053; 85025; 93005; 96374; 99285; J1885; Q9967

== ENCOUNTER 2019-06-19 13:59 | Emergency (ER) | payer MEDICARE, OTHER ==
[~2019-06-19] VITALS: Ht 160 cm; Wt 67.6 kg
[~2019-06-19 13:59] MED LIST changes: +MONT10TA4 PO; +MUCI600T31 PO; +TESS100C PO
[2019-06-19] MEDS ORDERED: PREV15CA18 PO (14:07)
[2019-06-19 16:41] VITALS: BP 137/78
[2019-06-19 16:46] LABS: BASO # 0.1 10^3/uL (0.0-0.2); BASO % 0.6 % (0.0-1.0); EOS # 0.1 10^3/uL (0.0-0.5); HEMOGLOBIN 11.7 g/dl (12.0-15.5); LYMPH # 2.3 10^3/uL (1.5-5.0); LYMPH % 26.1 % (24.0-44.0); MEAN CORPUSCULAR HEMOGLOBIN 30.2 pg (27.0-33.0); MEAN CORPUSCULAR HGB CONC 31.6 g/dl (32.0-36.5); MEAN CORPUSCULAR VOLUME 95.4 fl (80.0-96.0); MONO # 0.7 10^3/uL (0.0-0.8); NEUTROPHILS # 5.6 10^3/uL (1.5-8.5); NEUTROPHILS % 64.2 % (36.0-66.0); PLATELET COUNT, AUTOMATED 282 10^3/uL (150-450); RED BLOOD COUNT 3.88 10^6/uL (4.00-5.40); WHITE BLOOD COUNT 8.7 10^3/uL (4.0-10.0)
[2019-06-19] MEDS ORDERED: MACR100C43 PO (17:40)
[2019-06-19] MEDS ORDERED: NITROFURANTOIN (MACROBID) 100 MG CAP PO ONE (17:45)
[2019-06-19] MEDS ORDERED: ACETAMINOPHEN TAB 650MG DOSE (2X325MG) PO ONE (17:45)
== END 2019-06-19 18:15 | disposition home or self-care (01) ==
LOC: M ED 13:59
DX: N30.01 Acute cystitis with hematuria (principal); N95.2 Postmenopausal atrophic vaginitis; I11.9 Hypertensive heart disease without heart failure; Z95.5 Presence of coronary angioplasty implant and graft; I25.2 Old myocardial infarction; J45.909 Unspecified asthma, uncomplicated; K21.9 Gastro-esophageal reflux disease without esophagitis; M54.30 Sciatica, unspecified side; M41.9 Scoliosis, unspecified; K57.32 Diverticulitis of large intestine without perforation or abscess without bleeding; F41.9 Anxiety disorder, unspecified; F32.9 Major depressive disorder, single episode, unspecified; Z87.891 Personal history of nicotine dependence; Z79.899 Other long term (current) drug therapy; Z79.82 Long term (current) use of aspirin

== ENCOUNTER → 2019-07-06 | Outpatient (REF) | payer MEDICARE, OTHER ==
[~2019-07-06] MED LIST changes: +MACR100C43 PO; +PREV15CA18 PO
[2019-07-06 18:26] LABS: APPEARANCE, URINE CLEAR (CLEAR); BACTERIA, URINE AUTO 1+ (NEGATIVE); BILIRUBIN, URINE AUTO NEGATIVE (NEGATIVE); BLOOD, URINE BLOOD 1+ (NEGATIVE); COLOR, URINE STRAW (YELLOW); GLUCOSE, URINE (UA) AUTO NEGATIVE (NEGATIVE); KETONE, URINE AUTO NEGATIVE (NEGATIVE); LEUKOCYTE ESTERASE, URINE AUTO NEGATIVE (NEGATIVE); NITRITE, URINE AUTO NEGATIVE (NEGATIVE); PROTEIN, URINE AUTO NEGATIVE (NEGATIVE); RBC, URINE AUTO 1 /HPF (0-3); SPECIFIC GRAVITY URINE AUTO 1.003 (1.002-1.035); SQUAMOUS EPITHELIAL CELL UR AU 5 /HPF (0-6); TRANSITIONAL EPITHELIAL AUTO <1 /HPF; UROBILINOGEN, URINE AUTO 0.2 mg/dL (0.0-2.0); WBC, URINE AUTO 2 /HPF (0-3)
== END ==
LOC: M LAB REF 16:56
PROVIDERS: ATTEND Obstetrics & Gynecology
DX: R10.2 Pelvic and perineal pain (principal)

== ENCOUNTER → 2019-07-14 | Outpatient (CLI) | payer MEDICARE, OTHER ==
--- NOTE | 2019-07-14 10:10 | REPVR ---
PROCEDURE INFORMATION: Exam: CT Abdomen And Pelvis Without Contrast Exam date and time: 07/14/2019 9:47 AM Age: 83 years old Clinical indication: Abdominal pain; Localized; Lower; Additional info: Pelvic and perineal pain TECHNIQUE: Imaging protocol: Computed tomography of the abdomen and pelvis without contrast. Radiation optimization: All CT scans at this facility use at least one of these dose optimization techniques: automated exposure control; mA and/or kV adjustment per patient size (includes targeted exams where dose is matched to clinical indication); or iterative reconstruction. COMPARISON: CT ABD/PEL W/IV ORAL CONTRAS 12/08/2018 10:39 PM FINDINGS: Detailed evaluation of the abdominal and pelvic viscera is somewhat limited in the absence of intravenous contrast. Lungs: Mild interstitial prominence. Coronary artery and aortic root calcifications. Liver: No focal hepatic mass. Gallbladder and bile ducts: Status post cholecystectomy without significant biliary ductal dilatation. Pancreas: No pancreatic mass or ductal dilatation. Spleen: No splenomegaly. Adrenals: Unremarkable adrenals. Kidneys and ureters: Mildly lobulated renal morphology. No hydronephrosis. Stomach and bowel: Wall thickening in the nondistended stomach. No significant small bowel dilatation. Diverticula without pericolonic inflammation. Prominent stool. Appendix: Appendix not visualized. Intraperitoneal space: No free fluid. Vasculature: Vascular calcification. No abdominal aortic aneurysm. Lymph nodes: Subcentimeter lymph nodes. \E\ Bladder: Normal bladder morphology. Reproductive: Status post hysterectomy. Bones/joints: Osteopenia. Degenerative change and disc bulging. IMPRESSION: 1. No acute inflammatory process in the abdomen or pelvis. 2. Additional findings as described above. Electronically signed by: Amrit Cole On 07/14/2019 10:10:40 AM
== END ==
LOC: M RAD 09:27
PROVIDERS: ATTEND Obstetrics & Gynecology
DX: R10.2 Pelvic and perineal pain (principal)

== ENCOUNTER → 2019-11-29 | Outpatient (CLI) | payer MEDICARE, OTHER ==
[~2019-11-29] MED LIST changes: -ALL10TAB29 PO; +CETI-24 PO; +PANT40TA29; -PANT40TA3
== END ==
LOC: M LABSMTC 09:02
PROVIDERS: ATTEND Orthopaedic Surgery
DX: Z01.818 Encounter for other preprocedural examination (principal); Z11.59 Encounter for screening for other viral diseases

== ENCOUNTER → 2020-03-03 | Outpatient (CLI) | payer MEDICARE, OTHER ==
--- NOTE | 2020-03-07 14:17 | ECWPNPC ---
PATIENT NAME: YUKI LAM : 1935 GENDER: FEMALE VISIT DATE: 03/03/2020 DISCHARGE DATE: 03/03/20 1100 VISIT LOCKED DATE TIME: PHYSICIAN: HENRIETTA JETER RESOURCE: HENRIETTA JETER REASON FOR APPOINTMENT 1. BACK PAIN... BOOKED PER PRIETO HISTORY OF PRESENT ILLNESS GENERAL: - 84-YEAR-OLD FEMALE IN FOR CHRONIC PAIN FOLLOW-UP. SHE RATES HER PAIN CURRENTLY AT A 3 OUT OF 10 AND DESCRIBES IT ACHING. PATIENT HAS HAD FACET BLOCKS IN THE PAST WITH GOOD RESULTS AND WE WILL DISCUSS REPEAT PROCEDURES TODAY. PATIENT'S LAST MRI WAS IN 2012. FALL RISK SCREENING: SCREENING :NO FALLS REPORTED IN THE LAST YEAR PAIN SCREENING: PATIENT HAS A COMPLAINT OF ACUTE OR CHRONIC PAIN :YES LOCATION OF PAIN:LOW BACK INTENSITY OF PAIN (SCALE OF 1 TO 10):3 WHAT DOES YOUR PAIN FEEL LIKE:ACHING DURATION:CONSTANT, INTERMITTENT, AWAKENS FROM SLEEP PAIN IS INCREASED BY:OTHERS LAYING ON BACK MAKES THE PAIN MORE SEVERE. PAIN IS DECREASED BY:USE OF PAIN MEDICATIONS TYLENOL NURSING NOTE: -. PAIN CENTER INTAKE QUESTIONS: DO YOU HAVE A HISTORY OF MRSA? :NO DO YOU TAKE A BLOOD THINNERS? :NO DO YOU HAVE ANY BLEEDING DISORDERS? :NO ANY NEW NUMBNESS OR WEAKNESS IN YOUR LEGS OR ARMS? :NO ANY PACEMAKER,DEFIBRILLATOR, OR DORSAL COLUMN STIMULATOR? :NO DO YOU HAVE ANY RASHES OR OPEN SORES? :NO ARE YOU ALLERGIC TO IV DYE? :NO ARE YOU DIABETIC? :NO ANY NEW PROBLEMS WITH YOUR MEDICATIONS? :NO HAVE YOU RECEIVED A VACCINE IN THE PAST 30 DAYS? :YES PATIENT GOT A FLU SHOT ONE WEEK AGO. DO YOU PLAN TO RECEIVE A VACCINE IN THE NEXT 21 DAYS? :NO DO YOU NEED ANY PRESCRIPTION? :NO DO YOU TAKE ANY IMMUNOSUPPRESSIVE MEDICATIONS? :NO IS THERE A CHANCE YOU COULD BE ? :NO ARE YOU BREAST FEEDING? :NO CURRENT MEDICATIONS TAKING CARVEDILOL 6.25 MG TABLET 1 TSP ORALLY TWICE A DAY, NOTES: 09/22/182129 TAKING ASPIRIN 81 MG TABLET 1 TABLET ORALLY ONCE A DAY, NOTES: 09/22/182129 TAKING MONTELUKAST SODIUM 10MG TABLET TAKE 1 TABLET DAILY IN THE EVENING , NOTES: 09/22/18 0900 TAKING ACETAMINOPHEN 500 MG CAPSULE 1 CAPSULE NEEDED ORALLY EVERY 6 HRS, NOTES: MONTH AGO TAKING CRESTOR 40 MG TABLET 1 TABLET ORALLY ONCE A DAY, NOTES: 09/22/18899 TAKING CETIRIZINE HCL 10 MG TABLET 1 TABLET ORALLY ONCE A DAY, NOTES: 09/22/18899 TAKING CANDESARTAN CILEXETIL 8 MG TABLET 1 TABLET ORALLY ONCE A DAY TAKING PREMARIN 0.625 MG/GM CREAM DIRECTED VAGINAL TWICE PER WEEK TAKING URIBEL 118 MG CAPSULE 1 CAPSULE ORALLY FOUR TIMES DAILY NEEDED TAKING GABAPENTIN 100 MG CAPSULE 1 CAPSULE ORALLY TWICE A DAY TAKING ROSUVASTATIN CALCIUM 40 MG TABLET 1/2 TAB ORALLY ONCE A DAY TAKING PREVACID 15 MG CAPSULE DELAYED RELEASE 1 CAPSULE BEFORE A MEAL ORALLY ONCE A DAY PRN TAKING SYMBICORT 160-4.5 MCG/ACT AEROSOL 2 PUFFS INHALATION TWICE A DAY NOT-TAKING LANSOPRAZOLE 30 MG CAPSULE DELAYED RELEASE 1 CAPSULE ORALLY ONCE A DAY, NOTES: 09/22/18899 NOT-TAKING KEFLEX 500 MG CAPSULE 1 CAPSULE 1 HOUR PRIOR TO YOUR CYSTOSCOPY ORALLY ONCE NOT-TAKING DULOXETINE HCL 30MG CAPSULE DELAYED RELEASE PARTICLES TAKE 1 CAPSULE DAILY , NOTES: 09/22/18899 NOT-TAKING ATACAND 8 MG TABLET 1 TABLET ORALLY ONCE A DAY, NOTES: 09/22/18899 NOT-TAKING PANTOPRAZOLE SODIUM 40 MG TABLET DELAYED RELEASE 1 TABLET ORALLY BEFORE BREAKFAST ONCE A DAY NEEDED NOT-TAKING RANITIDINE HCL 150 MG TABLET 1 TABLET AT BEDTIME ORALLY TWICE A DAY NOT-TAKING VITAMIN D 2000 UNIT TABLET 2 TABLETS ORALLY ONCE A DAY NOT-TAKING ADVAIR DISKUS 250-50 MCG/DOSE MISCELLANEOUS 1 PUFF INHALATION TWICE A DAY PRN MEDICATION LIST REVIEWED AND RECONCILED WITH THE PATIENT PAST MEDICAL HISTORY HYPERTENSION - 10/08/13 TTE MILD MR/TR, MILD DIASTOLIC DYSFUNCTION, NORMAL LVE F -DR. JARRELL, [facility] HYPERLIPIDEMIA COPD LUMBAR DJD DEPRESSION/ANXIETY INSOMNIA VITAMIN D DEFICIENCY BILATERAL CAROTID ARTERY DISEASE - LEFT ICA < 50% STENOSIS; RIGHT ICA 50-69% STENOSIS ARTHRITIS FIBROMYALGIA UTI [place] 07/2016 STENTS PLACED CHRONIC PAIN ALLERGIES ATORVASTATIN CALCIUM: ACHING IN JOINTS - SIDE EFFECTS SURGICAL HISTORY ORIF LEFT ELBOW AND OLECRANON, REPLACEMENT OF LEFT RADIAL HEAD 12/11/2014 LEFT CARPAL TUNNEL RELEASE 04/01/2014 ARTHROSCOPIC SURGERY TO REPAIR MENISCAL TEAR OF LEFT KNEE 10/21/2013 RIGHT CARPAL TUNNEL RELEASE 11/23/2008 CHOLECYSTECTOMY 03/1999 ABDOMINAL ADHESIONS 03/1988 TOTAL ABDOMINAL HYSTERECTOMY/BILATERAL SALPINGO-OOPHORECTOMY LATE TONSILLECTOMY 03/1956 EPIDERAL INJECTION BACK 11/29/15 STENT 07/2016 CYSTO 02/04/2019 LEFT KNEE SURGERY 12/03/2019 FAMILY HISTORY FATHER: MOTHER: 5 BROTHER(S) , 7 SISTER(S) . 1 SON(S) , 2 DAUGHTER(S) - HEALTHY. SISTER INFANTSISTER BONE CASISTER KIDNEYSISTER STOMACH CASISTER PARKINSONSMOTHER OF COLON CANCER. DENIES ALL OTHER UNINARY TRACT MEDICAL HISTORY. SOCIAL HISTORY GENERAL: TOBACCO USE ARE YOU A:FORMER SMOKER HOW LONG HAS IT BEEN SINCE YOU LAST SMOKED?> 10 YEARS LATEX QUESTIONNAIRE LATEX ALLERGY : HAVE YOU EVER DEVELOPED ANY TYPE OF REACTION AFTER HANDLING LATEX PRODUCTS SUCH RUBBER GLOVES, CONDOMS, DIAPHRAGMS, BALLOONS, SOCKS, OR UNDERWEAR?NO LATEX ALLERGY : HAVE YOU EVER DEVELOPED ANY TYPE OF REACTION DURING OR AFTER DENTAL APPOINTMENT, VAGINAL/RECTAL EXAMINATION, SURGICAL PROCEDURE, OR ANY OTHER EXPOSURE?NO LATEX RISK : HAVE YOU EVER HAD ANY DIFFICULTY BREATHING OR HIVES AFTER EATING OR HANDLING ANY FRUITS, OR VEGETABLES; SUCH KIWI, BANANAS, STONE FRUITS, OR CHESTNUTSNO LATEX RISK : DO YOU HAVE A PREVIOUS PERSONAL HISTORY OF MORE THAN NINE SURGERIES, SPINA BIFIDA, OR REPEATED CATHERIZATIONS? YES - PLEASE INDICATE : > 9 SURGERIES LATEX RISK : ARE YOU FREQUENTLY EXPOSED TO LATEX PRODUCTS IN YOUR OCCUPATION?NO DATE ASKED : 03/03/2020 LUNG CANCER SCREENING SMOKING STATUS:NON SMOKER BMI CARE GOAL FOLLOW-UP ABOVE NORMAL BMI FOLLOW-UPDIETARY MANAGEMENT EDUCATION, GUIDANCE, AND COUNSELING ALCOHOL SCREENING DID YOU HAVE A DRINK CONTAINING ALCOHOL IN THE PAST YEAR?NO POINTS0 INTERPRETATIONNEGATIVE RECREATIONAL DRUG USE DRUG USE?NO CAFFEINE CAFFEINE USE?NO SEXUAL HX HAD SEX IN THE LAST 12 MONTHS (VAGINAL, ORAL, OR ANAL)?NO HAVE YOU EVER HAD AN STD?NO BUDDHISM NO MORMON BELIEFS THAT WOULD IMPACT HEALTH CARE. LANGUAGE GERMAN. LEARNING BARRIERS / SPECIAL NEEDS CHANGE FROM LAST VISIT?NO BARRIERS TO LEARNING?NO HEARING IMPAIRED?NO VISION IMPAIRED?YES COGNITIVELY IMPAIRED?NO :CORRECTIVE LENSES READINESS TO LEARN?YES LEARNING PREFERENCES?NO LEARNING CAPABILITIES PRESENT?YES EMOTIONAL BARRIERS?NO SPECIAL DEVICES?NO EYEWEAR CONSULTANT NEEDED?NO DOMESTIC VIOLENCE DO YOU FEEL SAFE IN YOUR ENVIRONMENT?YES DIET: REGULAR. EXERCISE: NO REGULAR EXERCISE. MARITAL STATUS: . OTHERS AT HOME: NONE. NEW PATIENT PAIN DIARY TODAY'S VISIT NOTES, FROM 0-10, WHAT LEVEL IS YOUR PAIN TODAY? 0. PAIN CLINIC PFS, CLERGY, PUBLIC HEALTH REFERRALS PFS REFERRAL NEEDED?NO CLERGY REFERRAL NEEDED?NO PUBLIC HEALTH REFERRAL NEEDED?NO WAS THE PROVIDER NOTIFIED OF ANY PERTINENT INFO?YES HAS THE PATIENT BEEN EDUCATED REGARDING HIS/HER PLAN OF CARE?YES HAS THE PATIENT BEEN EDUCATED REGARDING PAIN, THE RISK FOR PAIN, THE IMPORTANCE OF EFFECTIVE PAIN MANAGEMENT, AND THE PAIN ASSESSMENT PROCESS?YES ADVANCE DIRECTIVE ADVANCE DIRECTIVE DISCUSSED WITH PATIENT:YES PT HAS HCP DAUGHTERGUS [phone] REVIEWED WITH PT 07/24/18 6184 LASREVIEWED WITH PT 08/14/18 0920 LASREVIEWED WITH PATIENT 09/23/18 4117 JS. HOSPITALIZATION/MAJOR DIAGNOSTIC PROCEDURE SURGERIES ABOVE CHEST PAIN 08/2018 CONSTIPATION 11/2018 REVIEW OF SYSTEMS CONSTITUTIONAL: ANY RECENT FEVER NO . CHILLS NO . WEIGHT CHANGE OF UNKNOWN REASONS NO . GASTROENTEROLOGY: NEW UNEXPLAINABLE CHANGES IN BOWEL CONTROL NO . CONSTIPATION NO . GENITOURINARY: ANY NEW CHANGE IN BLADDER CONTROL? NO . NEUROLOGY: NEW ONSET DIZZINESS OR NEUROLOGICAL CHANGES NOT MENTIONED NO . NEW NUMBNESS OR PAIN PATTERNS NOT MENTIONED AND PERTINENT TO TODAY'S VISIT NO . CARDIOLOGY: NEW CHEST PRESSURE NO . NEW CHEST PAIN NO . RESPIRATORY: UNEXPLAINABLE COUGH NO . NEW SHORTNESS OF BREATH NO . VITAL SIGNS WT 147.8 LBS, HT 61.50 IN, BMI 27.47 INDEX, BP 165/72 MM HG, REPEAT BP 142/68 MM HG, HR 63 /MIN, RR 18 /MIN, TEMP 98.1 F, OXYGEN SAT % 99%, SAFE IN ENV? (Y/N) YES, NA INITIALS AW 1024, REVIEWED BY: DM. EXAMINATION GENERAL EXAMINATION: GENERALNO ACUTE DISTRESS, WELL NOURISHED AND HYDRATED. PSYCHAPPROPRIATE MOOD AND AFFECT . LUNGS:CLEAR TO AUSCULTATION BILATERALLY, NO WHEEZES, RHONCHI, RALES. HEART:NO MURMURS, REGULAR RATE AND RHYTHM. BACK:POINT TENDER BILATERAL LOW BACK, SURROUNDING SKIN SHOWS NO ERYTHEMA, ECCHYMOSIS, INCREASED WARMTH, AND/OR SKIN ERUPTIONS NOTED. . MUSCULOSKELETAL:NOTABLE WEAKNESS OF THE LEFT LOWER EXTREMITY, RIGHT LOWER EXTREMITY WITHIN NORMAL LIMITS . ASSESSMENTS SPONDYLOSIS OF LUMBOSACRAL REGION WITHOUT MYELOPATHY OR RADICULOPATHY - M47.817 (PRIMARY) TREATMENT SPONDYLOSIS OF LUMBOSACRAL REGION WITHOUT MYELOPATHY OR RADICULOPATHY [facility] MRI LUMBAR W/O CONTRAST (CPT [id number] NOTES: DISCUSSED CARE PLAN WITH PATIENT, PATIENT VERBALIZES UNDERSTANDING. - KAREN COWART CMA . CLINICAL NOTES: 84-YEAR-OLD FEMALE IN FOR CHRONIC PAIN FOLLOW-UP. GIVEN PRESENTING SYMPTOMS RECOMMEND GETTING AN UPDATED MRI WITH FOLLOW-UP THEREAFTER. PATIENT HAS EXPRESSED UNDERSTANDING OF AND WAS IN AGREEMENT WITH TREATMENT PLAN. GIVEN TIME TO ASK QUESTIONS AND EXPRESS CONCERNS. PROCEDURE CODES FA211 ESTABILISHED PATIENT [facility] FACILITY CHARGE DISPOSITION & COMMUNICATION FOLLOW UP AFTER IMAGING (REASON: LUMBAR MRI) ELECTRONICALLY SIGNED BY AMANDA LOPEZ ON 03/07/2020 AT 10:32 AM EDT DISCLAIMER : THIS IS A VISIT SUMMARY EXTRACTED FROM THE [employer] CHART. IT IS NOT A COPY OF THE [employer] PROGRESS NOTE. JAQUELINE
== END ==
LOC: M PAIN 10:15
PROVIDERS: ATTEND Family Medicine
DX: M47.817 Spondylosis without myelopathy or radiculopathy, lumbosacral region (principal); G89.29 Other chronic pain; I10 Essential (primary) hypertension; J44.9 Chronic obstructive pulmonary disease, unspecified; G47.00 Insomnia, unspecified; M79.7 Fibromyalgia; Z86.59 Personal history of other mental and behavioral disorders; Z87.891 Personal history of nicotine dependence; Z88.8 Allergy status to other drugs, medicaments and biological substances; Z79.82 Long term (current) use of aspirin; Z79.899 Other long term (current) drug therapy

== ENCOUNTER → 2020-03-18 | Outpatient (CLI) | payer MEDICARE, OTHER ==
--- NOTE | 2020-03-18 15:31 | REP ---
INDICATION: SPONDYLOSIS OF LUMBOSACRAL REGION W/OUT MYELOPATHY/RADICULOP. COMPARISON: Comparison MRI study July 23, 2012. Comparison lumbar spine radiographs October 30, 2018.. TECHNIQUE: Sagittal and axial T1 and T2-weighted scans are acquired in the usual fashion with and without fat saturation. Sequences include spin echo, turbo spin-echo, and STIR imaging sequences. FINDINGS: Lumbar vertebral body heights are preserved. Alignment is normal except at L5-S1 where there is a 3 mm stable L5-S1 spondylolisthesis. No pars defect is appreciated. Tip of the conus medullaris is at the inferior aspect of L1 unchanged. Parapelvic cysts are seen in the kidneys as before. Axial and sagittal images taken at L1-L2 show mild diffuse disc bulging. No spinal stenosis or foraminal narrowing is seen. At L2-L3, there is diffuse disc bulging as well. There is left lateral disc bulge at L2-L3 which is unchanged from the comparison study. No spinal stenosis is seen. No neural foraminal narrowing is observed. At L3-4, there is degenerative disc space narrowing. There is diffuse disc bulging indenting the ventral margin of the thecal sac. This is a little more prominent than on the 2013 prior study. There is bilateral foraminal disc bulging which contacts the exiting nerve there is some ligamentum flavum I. Trophy and mild facet hypertrophy at L3-4 as well. Canal size is borderline. The disc bulging is slightly more prominent today at L3-4. At L4-5, there is mild diffuse disc bulging. This indents the ventral margin of the thecal sac. There is ligamentum flavum and facet hypertrophy which are slightly more prominent. No spinal stenosis seen. No nerve root compression is seen. At L5-S1 in addition to the mild grade 1 spondylolisthesis there is minimal diffuse disc bulging. No spinal stenosis or at nerve root compression is seen. Facet hypertrophy is noted bilaterally. There is a small perineural cyst in the sacral thecal sac to the right of midline at the 2nd sacral level unchanged. IMPRESSION: Degenerative disc and osteoarthritic facet changes noted at multiple levels. Disc bulging and facet hypertrophy more pronounced compared to the prior study at L3-4 and L4-5. There is a left lateral disc bulge at L2-3 unchanged. <Electronically signed by El Robin > 03/18/20 [id number]
== END ==
LOC: M RAD 12:51
PROVIDERS: ATTEND Family Medicine
DX: M47.817 Spondylosis without myelopathy or radiculopathy, lumbosacral region (principal); M51.26 Other intervertebral disc displacement, lumbar region

== ENCOUNTER → 2020-03-30 | Outpatient (CLI) | payer MEDICARE, OTHER | LOC: M LABSMTC 09:48 | PROVIDERS: ATTEND Anesthesiology | DX: Z20.828 Contact with and (suspected) exposure to other viral communicable diseases (principal) ==

== ENCOUNTER → 2020-04-04 | Outpatient (CLI) | payer MEDICARE, OTHER ==
[~2020-04-04] MED LIST changes: +BUPIVACAINE HCL 0.25% 30ML VIAL As Ordered ONE; +ISOVUE-M 300 61% 15ML VIAL As Ordered ONE; +LIDOCAINE 1% SDV 30ML VIAL As Ordered ONE; -MONT10TA4 PO; +MONT5TAB2 PO; +TRIAMCINOLONE ACETONIDE SUSP 40 MG/ML VIAL (J3301) As Ordered ONE; +diazePAM 5 MG TAB As Ordered ONE; +oxyCODONE 5MG TAB As Ordered ONE
--- NOTE | 2020-04-04 13:32 | REP ---
INDICATION: PAIN. COMPARISON: None. TECHNIQUE: Two C-arm views lower lumbar facet joints performed. FINDINGS: Mounds are seen along the lower lumbar facet joints bilaterally. A small amount of contrast is injected. IMPRESSION: 30 seconds of fluoroscopy time is utilized. <Electronically signed by Sandip Arana > 04/04/20 1373
--- NOTE | 2020-04-14 02:16 | ECWPNPC ---
PATIENT NAME: YUKI LAM : 1935 GENDER: FEMALE VISIT DATE: 04/04/2020 DISCHARGE DATE: 04/04/20 1123 VISIT LOCKED DATE TIME: PHYSICIAN: KWAKU CID MD RESOURCE: KWAKU CID MD REASON FOR APPOINTMENT 1. LFBT L4/L5, L5/S1 HISTORY OF PRESENT ILLNESS GENERAL: -. FALL RISK SCREENING: SCREENING :NO FALLS REPORTED IN THE LAST YEAR PAIN SCREENING: PATIENT HAS A COMPLAINT OF ACUTE OR CHRONIC PAIN :YES LOCATION OF PAIN: LOW BACK, CLOSER TO TAILBONE INTENSITY OF PAIN (SCALE OF 1 TO 10):10 WHAT DOES YOUR PAIN FEEL LIKE:BURNING, SHARP, ACHING DURATION:CONTINOUS, AWAKENS FROM SLEEP PAIN IS INCREASED BY:ACTIVITIES, PROLONGED STANDING PLAN/GOALS/TREATMENT/INTERVENTION/FOLLOW UP:SEE PLAN NURSING NOTE: -. PAIN CENTER INTAKE QUESTIONS: DO YOU HAVE A HISTORY OF MRSA? :NO DO YOU TAKE A BLOOD THINNERS? :NO DO YOU HAVE ANY BLEEDING DISORDERS? :NO ANY NEW NUMBNESS OR WEAKNESS IN YOUR LEGS OR ARMS? :YES LEFT ARM INJURY WITH PIN AND PLATE ANY PACEMAKER,DEFIBRILLATOR, OR DORSAL COLUMN STIMULATOR? :NO DO YOU HAVE ANY RASHES OR OPEN SORES? :NO ARE YOU ALLERGIC TO IV DYE? :NO ARE YOU DIABETIC? :NO ANY NEW PROBLEMS WITH YOUR MEDICATIONS? :NO HAVE YOU RECEIVED A VACCINE IN THE PAST 30 DAYS? :NO DO YOU PLAN TO RECEIVE A VACCINE IN THE NEXT 21 DAYS? :NO DO YOU TAKE ANY IMMUNOSUPPRESSIVE MEDICATIONS? :NO ANY HISTORY OF SEIZURES? :NO ANY HISTORY OF CARDIAC ISSUES OR EVENTS? :YES 1 STENT DO YOU HAVE SLEEP APNEA? :NO ANY RECENT HEAD INJURY? :NO DO YOU HAVE ANY NEW INFECTIONS? :NO IS THERE A CHANCE YOU COULD BE ? :NO ARE YOU BREAST FEEDING? :NO WHEN DID YOU LAST EAT? : 04/03/202029 WHEN DID YOU LAST DRINK? : -04/03 2100 WHAT DID YOU LAST DRINK? : -WATER NAME OF PERSON DRIVING YOU HOME? : ANG LAM DO YOU HAVE ANY OTHER QUESTIONS OR CONCERNS? : NO CURRENT MEDICATIONS TAKING CARVEDILOL 6.25 MG TABLET 1 TSP ORALLY TWICE A DAY, NOTES: 04/03 2000 TAKING ASPIRIN 81 MG TABLET 1 TABLET ORALLY ONCE A DAY, NOTES: 04/03 2000 TAKING MONTELUKAST SODIUM 10MG TABLET TAKE 1 TABLET DAILY IN THE EVENING , NOTES: 04/03 800 TAKING ACETAMINOPHEN 500 MG CAPSULE 1 CAPSULE NEEDED ORALLY EVERY 6 HRS, NOTES: 04/02 TAKING CRESTOR 40 MG TABLET 1/2 TAB ORALLY ONCE A DAY, NOTES: 04/03 800 TAKING CETIRIZINE HCL 10 MG TABLET 1 TABLET ORALLY ONCE A DAY, NOTES: NONE LATELY TAKING CANDESARTAN CILEXETIL 8 MG TABLET 1 TABLET ORALLY ONCE A DAY, NOTES: 04/03 800 TAKING PREMARIN 0.625 MG/GM CREAM DIRECTED VAGINAL TWICE PER WEEK, NOTES: 04/01 TAKING GABAPENTIN 100 MG CAPSULE 1 CAPSULE ORALLY TWICE A DAY, NOTES: 04/03 2000 TAKING ROSUVASTATIN CALCIUM 40 MG TABLET 1/2 TAB ORALLY ONCE A DAY, NOTES: SEE ABOVE TAKING PREVACID 15 MG CAPSULE DELAYED RELEASE 1 CAPSULE BEFORE A MEAL ORALLY ONCE A DAY PRN, NOTES: 04/03 800 TAKING SYMBICORT 160-4.5 MCG/ACT AEROSOL 2 PUFFS INHALATION TWICE A DAY, NOTES: 04/03 2000 UNKNOWN URIBEL 118 MG CAPSULE 1 CAPSULE ORALLY FOUR TIMES DAILY NEEDED UNKNOWN LANSOPRAZOLE 30 MG CAPSULE DELAYED RELEASE 1 CAPSULE ORALLY ONCE A DAY, NOTES: 09/22/18899 UNKNOWN KEFLEX 500 MG CAPSULE 1 CAPSULE 1 HOUR PRIOR TO YOUR CYSTOSCOPY ORALLY ONCE UNKNOWN DULOXETINE HCL 30MG CAPSULE DELAYED RELEASE PARTICLES TAKE 1 CAPSULE DAILY , NOTES: 09/22/18899 UNKNOWN ATACAND 8 MG TABLET 1 TABLET ORALLY ONCE A DAY, NOTES: 09/22/18899 UNKNOWN PANTOPRAZOLE SODIUM 40 MG TABLET DELAYED RELEASE 1 TABLET ORALLY BEFORE BREAKFAST ONCE A DAY NEEDED UNKNOWN RANITIDINE HCL 150 MG TABLET 1 TABLET AT BEDTIME ORALLY TWICE A DAY UNKNOWN VITAMIN D 2000 UNIT TABLET 2 TABLETS ORALLY ONCE A DAY UNKNOWN ADVAIR DISKUS 250-50 MCG/DOSE MISCELLANEOUS 1 PUFF INHALATION TWICE A DAY PRN MEDICATION LIST REVIEWED AND RECONCILED WITH THE PATIENT PAST MEDICAL HISTORY HYPERTENSION - 10/08/13 TTE MILD MR/TR, MILD DIASTOLIC DYSFUNCTION, NORMAL LVE F -DR. JARRELL, [facility] HYPERLIPIDEMIA COPD LUMBAR DJD DEPRESSION/ANXIETY INSOMNIA VITAMIN D DEFICIENCY BILATERAL CAROTID ARTERY DISEASE - LEFT ICA < 50% STENOSIS; RIGHT ICA 50-69% STENOSIS ARTHRITIS FIBROMYALGIA UTI IN 07/2016 STENTS PLACED CHRONIC PAIN ALLERGIES ATORVASTATIN CALCIUM: ACHING IN JOINTS - SIDE EFFECTS SURGICAL HISTORY ORIF LEFT ELBOW AND OLECRANON, REPLACEMENT OF LEFT RADIAL HEAD 12/11/2014 LEFT CARPAL TUNNEL RELEASE 04/01/2014 ARTHROSCOPIC SURGERY TO REPAIR MENISCAL TEAR OF LEFT KNEE 10/21/2013 RIGHT CARPAL TUNNEL RELEASE 11/23/2008 CHOLECYSTECTOMY 03/1999 ABDOMINAL ADHESIONS 03/1988 TOTAL ABDOMINAL HYSTERECTOMY/BILATERAL SALPINGO-OOPHORECTOMY LATE TONSILLECTOMY 03/1956 EPIDERAL INJECTION BACK 11/29/15 STENT 07/2016 CYSTO 02/04/2019 LEFT KNEE SURGERY 12/03/2019 FAMILY HISTORY FATHER: MOTHER: 5 BROTHER(S) , 7 SISTER(S) . 1 SON(S) , 2 DAUGHTER(S) - HEALTHY. SISTER INFANTSISTER BONE CASISTER KIDNEYSISTER STOMACH CASISTER PARKINSONSMOTHER OF COLON CANCER. DENIES ALL OTHER UNINARY TRACT MEDICAL HISTORY. SOCIAL HISTORY GENERAL: TOBACCO USE ARE YOU A:FORMER SMOKER HOW LONG HAS IT BEEN SINCE YOU LAST SMOKED?> 10 YEARS LATEX QUESTIONNAIRE LATEX ALLERGY : HAVE YOU EVER DEVELOPED ANY TYPE OF REACTION AFTER HANDLING LATEX PRODUCTS SUCH RUBBER GLOVES, CONDOMS, DIAPHRAGMS, BALLOONS, SOCKS, OR UNDERWEAR?NO LATEX ALLERGY : HAVE YOU EVER DEVELOPED ANY TYPE OF REACTION DURING OR AFTER DENTAL APPOINTMENT, VAGINAL/RECTAL EXAMINATION, SURGICAL PROCEDURE, OR ANY OTHER EXPOSURE?NO LATEX RISK : HAVE YOU EVER HAD ANY DIFFICULTY BREATHING OR HIVES AFTER EATING OR HANDLING ANY FRUITS, OR VEGETABLES; SUCH KIWI, BANANAS, STONE FRUITS, OR CHESTNUTSNO LATEX RISK : DO YOU HAVE A PREVIOUS PERSONAL HISTORY OF MORE THAN NINE SURGERIES, SPINA BIFIDA, OR REPEATED CATHERIZATIONS? YES - PLEASE INDICATE : > 9 SURGERIES LATEX RISK : ARE YOU FREQUENTLY EXPOSED TO LATEX PRODUCTS IN YOUR OCCUPATION?NO DATE ASKED : 04/01/2020 LUNG CANCER SCREENING SMOKING STATUS:NON SMOKER BMI CARE GOAL FOLLOW-UP ABOVE NORMAL BMI FOLLOW-UPDIETARY MANAGEMENT EDUCATION, GUIDANCE, AND COUNSELING ALCOHOL SCREENING DID YOU HAVE A DRINK CONTAINING ALCOHOL IN THE PAST YEAR?NO POINTS0 INTERPRETATIONNEGATIVE RECREATIONAL DRUG USE DRUG USE?NO CAFFEINE CAFFEINE USE?NO SEXUAL HX HAD SEX IN THE LAST 12 MONTHS (VAGINAL, ORAL, OR ANAL)?NO HAVE YOU EVER HAD AN STD?NO RESTORATIONIST NO BAHAI BELIEFS THAT WOULD IMPACT HEALTH CARE. LANGUAGE MOHAWK. LEARNING BARRIERS / SPECIAL NEEDS CHANGE FROM LAST VISIT?NO BARRIERS TO LEARNING?NO HEARING IMPAIRED?NO VISION IMPAIRED?YES :CORRECTIVE LENSES COGNITIVELY IMPAIRED?NO READINESS TO LEARN?YES LEARNING PREFERENCES?NO LEARNING CAPABILITIES PRESENT?YES EMOTIONAL BARRIERS?NO SPECIAL DEVICES?NO ACTUARIAL DIRECTOR NEEDED?NO DOMESTIC VIOLENCE DO YOU FEEL SAFE IN YOUR ENVIRONMENT?YES DIET: REGULAR. EXERCISE: NO REGULAR EXERCISE. MARITAL STATUS: . OTHERS AT HOME: NONE. TODAY'S VISIT NOTES, FROM 0-10, WHAT LEVEL IS YOUR PAIN TODAY? 0. PAIN CLINIC PFS, CLERGY, PUBLIC HEALTH REFERRALS PFS REFERRAL NEEDED?NO CLERGY REFERRAL NEEDED?NO PUBLIC HEALTH REFERRAL NEEDED?NO WAS THE PROVIDER NOTIFIED OF ANY PERTINENT INFO?YES HAS THE PATIENT BEEN EDUCATED REGARDING HIS/HER PLAN OF CARE?YES HAS THE PATIENT BEEN EDUCATED REGARDING PAIN, THE RISK FOR PAIN, THE IMPORTANCE OF EFFECTIVE PAIN MANAGEMENT, AND THE PAIN ASSESSMENT PROCESS?YES ADVANCE DIRECTIVE ADVANCE DIRECTIVE DISCUSSED WITH PATIENT:YES PT HAS HCP DAUGHTERGUS [phone]. REVIEWED WITH PT 07/24/18 1515 LASREVIEWED WITH PT 08/14/18 0925 LASREVIEWED WITH PATIENT 09/23/18 8002 JS. HOSPITALIZATION/MAJOR DIAGNOSTIC PROCEDURE SURGERIES ABOVE CHEST PAIN 08/2018 CONSTIPATION 11/2018 VITAL SIGNS WT 146.8 LBS, HT 61.50 IN, BMI 27.29 INDEX, BP 187/80 MM HG, REPEAT BP 152/82 MM HG, HR 62 /MIN, RR 18 /MIN, TEMP 96.1 F, OXYGEN SAT % 99%, SAFE IN ENV? (Y/N) YES, NA INITIALS AW 0844, REVIEWED BY: MATA RN @ 0910. ASSESSMENTS SPONDYLOSIS WITHOUT MYELOPATHY OR RADICULOPATHY, LUMBAR REGION - M47.816 (PRIMARY) SPONDYLOSIS WITHOUT MYELOPATHY OR RADICULOPATHY, LUMBOSACRAL REGION - M47.817 TREATMENT SPONDYLOSIS WITHOUT MYELOPATHY OR RADICULOPATHY, LUMBAR REGION [facility] FACET BLOCK (PAIN)[id number] MEDICATION: VALIUM TAB 5MG ORALLY (DIAZEPAM)PARMINDERRUBIDARIUS L 04/04/2020 9:20:50 AM > LOT: [id number], EXP: 11/30. VERIFIED. SABA DUMONT 04/04/2020 9:25:29 AM > ADMINISTERED 0925 MEDICATION: OXYCODONE HCL TAB 5MG ORALLY DARIUS ZAVALA Marcus 04/04/2020 9:21:48 AM > LOT: [id number], EXP: 06/2021. VERIFIED. SABA DUMONT 04/04/2020 9:25:59 AM > ADMINISTERED 0925 NOTES: DISCHARGE INSTRUCTIONS REVIEEWED WITH PATIENT. PATIENT VERBALIZED UNDERSTANDING OF DISCHARGE INSTRUCTIONS. SPONDYLOSIS WITHOUT MYELOPATHY OR RADICULOPATHY, LUMBOSACRAL REGION [facility] FACET BLOCK (PAIN)[id number] OTHERS NOTES: 04/01/20 1720 PAT COMPLETED JELENA DAVID, CELL TOWER CLIMBER. PROCEDURES PAIN NURSING RECORD PRE-PROCEDURE IV SITE N/A, PRE-PROCEDURE ORAL MEDICATIONS PER MD ORDER PROCEDURE IN ROOM 1015, PHYSICIAN IN ROOM 1045, START 1049, FINISH 1054, PHYSICIAN OUT OF ROOM 1056, OUT OF ROOM 1101, STEROID KENALOG, O2 RA, ECG OTHER SB 50'S, PATIENT SHIELDED YES, SAFETY STRAP YES, PREP CHLOROPREP BY Sandoval DUMONT RN, IV INFUSED N/A, DRESSING TEGADERM BY DR CID LOC: 1. ALERT, ORIENTED RESP: 1. REGULAR, NO DYSPNEA COLOR: 1. PINK SKIN: 1. WARM, DRY POSITION: 1. PRONE VITALS: % SABA DUMONT 04/04/2020 10:30:00 AM > 158/70 HR 53 16 99% , SABA DUMONT 04/04/2020 10:45:57 AM > 156/68 HR 47 16 98% , SABA DUMONT 04/04/2020 11:10:17 AM > 162/ 82 HR 56 16 98% D/C V/S DISCHARGE: POST PAIN 0, DRESSING SITE DRY AND INTACT, IV N/A, GAIT STEADY, TEACHING COMPLETED, PATIENT ACKNOWLEDGES UNDERSTANDING YES, PATIENT DISCHARGED AT 1120 PN LUMBAR FACET BLOCK THERAPEUTIC PRE PROCEDURE DIAGNOSIS LUMBAR SPONDYLOSIS, LUMBOSACRAL SPONDYLOSIS POST PROCEDURE DIAGNOSIS LUMBAR SPONDYLOSIS, LUMBOSACRAL SPONDYLOSIS PROCEDURE BILATERAL L4-L5 AND BILATERAL L5-S1 LUMBAR FACET THERAPEUTIC BLOCK SURGEON DR. KWAKU CID CANINE SERVICE INSTRUCTOR TRAINER NONE ANESTHESIA LOCAL PRE PROCEDURE NOTE THE PATIENT HAS A HISTORY OF CHRONIC LOW BACK PAIN. I EVALUATED THE PATIENT AND REVIEWED THE CHART. I WENT OVER THE RISKS, ALTERNATIVES, AND BENEFITS ASSOCIATED WITH THIS PROCEDURE. I DISCUSSED THAT THE USE OF STEROIDS MAY CONTRIBUTE TO IMMUNOSUPPRESSION OF THE PATIENT'S BODY AGAINST INFECTIONS SUCH COVID-19. THE PATIENT IS AWARE OF THE POTENTIAL COMPLICATIONS ASSOCIATED WITH THIS VIRUS, INCLUDING, BUT NOT LIMITED TO, . THE PATIENT WOULD LIKE TO PROCEED AND GIVES CONSENT TO PERFORM THE PROCEDURE. THE PATIENT DENIES UNEXPLAINABLE WEIGHT LOSS, FEVER, CHILLS, OR NEW CHANGES IN URINARY OR BOWEL CONTROL. THE PATIENT IS COVID-19 NEGATIVE DESCRIPTION OF PROCEDURE THE PATIENT WAS BROUGHT TO THE PROCEDURE ROOM AND PLACED IN THE PRONE POSITION. THE LUMBOSACRAL AREA WAS CLEANED WITH CHLORAPREP SOLUTION AND DRAPED ASEPTICALLY. THE PROCEDURE WAS DONE UNDER STERILE CONDITIONS. A TIMEOUT WAS PERFORMED WHERE LATERALITY AND THE SITE OF THE PROCEDURE WERE CHECKED AND CONFIRMED WITH EVERYONE IN THE ROOM. UNDER FLUOROSCOPIC GUIDANCE, THE TARGET POINT WAS SELECTED AT THE RIGHT AND LEFT L4-L5 AND RIGHT AND LEFT L5-S1 FACET JOINTS. TARGET POINT WAS SELECTED AFTER LATERAL ROTATION AND TILT OF THE MAGNIFIER OF THE C-ARM. I CONFIRMED AGAIN WITH EVERYONE IN THE ROOM THE LATERALITY OF THE TARGET AT 1048. LIDOCAINE 0.5% WAS USED TO NUMB THE SKIN AND THE SUBCUTANEOUS TISSUE BELOW IT. SPINAL NEEDLES, 22-GAUGE, WERE ADVANCED UNDER FLUOROSCOPIC GUIDANCE AND FOLLOWING PATIENT FEEDBACK UNTIL THE TARGETS WERE TOUCHED. THE POSITION OF THE NEEDLES WAS VERIFIED WITH AP AND LATERAL VIEWS. AFTER PROPER POSITION OF THE NEEDLES WAS ACHIEVED, ISOVUE-M DYE 30%, 0.1 ML, WAS INJECTED SHOWING ADEQUATE SPREAD OF THE DYE. KENALOG 20 MG WAS INJECTED AT EACH SITE. THEN, A SOLUTION OF 1.0 ML OF BUPIVACAINE 0.125% OF WAS USED TO FLUSH EACH SITE. THE MEDICATION WAS VERIFIED WITH THE NURSE. THERE WAS NO EVIDENCE OF BLOOD, PARESTHESIA OR CEREBROSPINAL FLUID DURING THE PROCEDURE. THE PATIENT WAS SENT TO THE RECOVERY ROOM. THE PATIENT WAS MOVING THE EXTREMITIES AND DOING WELL. THERE WERE NO COMPLICATIONS DURING THE PROCEDURE. ESTIMATED BLOOD LOSS WAS LESS THAN 5 ML. FLUOROSCOPY TIME WAS 29 SECONDS POST PROCEDURE NOTE THE PATIENT WILL BE SEEN IN A FOLLOW UP IN THE NEXT FEW WEEKS. I AM LOOKING FOR LONG LASTING RELIEF FOR THE PATIENT WITH THIS INTERVENTION. INSTRUCTIONS WERE GIVEN, QUESTIONS WERE ANSWERED, AND THE PATIENT EXPRESSED UNDERSTANDING AND AGREES WITH THE PLAN. I, GURJIT OLEA, DOCUMENTED THE ABOVE INFORMATION ACTING A SCRIBE FOR DR. CID. I HAVE REVIEWED THE ABOVE DOCUMENT, WRITTEN BY GURJIT OLEA, FOUNTAIN BRUSH ASSEMBLER, AND I VERIFY THAT IT IS ACCURATE PROCEDURE CODES 40537 INJ PARAVERT F JNT L/S 1 LEV, MODIFIERS: 50 [id number] INJ PARAVERT F JNT L/S 2 LEV, MODIFIERS: 50 DISPOSITION & COMMUNICATION FOLLOW UP FOLLOW UP WITH DOBBY LOOMS PEGGER (REASON: POST THERAPEUTIC BILATERAL L4-L5, L5-S1) ELECTRONICALLY SIGNED BY KWAKU CID MD, MD ON 04/13/2020 AT 09:18 AM EST DISCLAIMER : THIS IS A VISIT SUMMARY EXTRACTED FROM THE [employer] CHART. IT IS NOT A COPY OF THE [employer] PROGRESS NOTE. JAQUELINE
== END ==
LOC: M PAIN 09:00
PROVIDERS: ATTEND Anesthesiology
DX: M47.816 Spondylosis without myelopathy or radiculopathy, lumbar region (principal); M47.817 Spondylosis without myelopathy or radiculopathy, lumbosacral region; I10 Essential (primary) hypertension; E78.5 Hyperlipidemia, unspecified; J44.9 Chronic obstructive pulmonary disease, unspecified; M51.36 Other intervertebral disc degeneration, lumbar region; F32.9 Major depressive disorder, single episode, unspecified; F41.9 Anxiety disorder, unspecified; G47.00 Insomnia, unspecified; E55.9 Vitamin D deficiency, unspecified; I65.23 Occlusion and stenosis of bilateral carotid arteries; M79.7 Fibromyalgia; Z95.5 Presence of coronary angioplasty implant and graft; I25.2 Old myocardial infarction; Z87.891 Personal history of nicotine dependence; Z79.82 Long term (current) use of aspirin; Z79.899 Other long term (current) drug therapy; Z88.8 Allergy status to other drugs, medicaments and biological substances
CPT/HCPCS: 64493; 64494; J3301; Q9967

== ENCOUNTER → 2020-04-18 | Outpatient (CLI) | payer MEDICARE, OTHER ==
[~2020-04-18] MED LIST changes: -BUPIVACAINE HCL 0.25% 30ML VIAL As Ordered ONE; -ISOVUE-M 300 61% 15ML VIAL As Ordered ONE; -LIDOCAINE 1% SDV 30ML VIAL As Ordered ONE; -TRIAMCINOLONE ACETONIDE SUSP 40 MG/ML VIAL (J3301) As Ordered ONE; -diazePAM 5 MG TAB As Ordered ONE; -oxyCODONE 5MG TAB As Ordered ONE
--- NOTE | 2020-04-20 02:21 | ECWPNPC ---
PATIENT NAME: YUKI LAM : 1935 GENDER: FEMALE VISIT DATE: 04/18/2020 DISCHARGE DATE: 04/18/20956 VISIT LOCKED DATE TIME: PHYSICIAN: HENRIETTA JETER RESOURCE: HENRIETTA JETER REASON FOR APPOINTMENT 1. POST THERAPEUTIC BILATERAL L4-L5, L5-S1 HISTORY OF PRESENT ILLNESS DEPRESSION SCREENING: PHQ-2 (2015 EDITION) LITTLE INTEREST OR PLEASURE IN DOING THINGS?NOT AT ALL FEELING DOWN, DEPRESSED, OR HOPELESS?NOT AT ALL TOTAL SCORE0 84-YEAR-OLD FEMALE IN FOR POST LUMBAR FACET BLOCK FOLLOW-UP. SHE FEELS THE PROCEDURE WAS SUCCESSFUL OVERALL RATING HER PAIN PREPROCEDURE AT A 9-10 OUT OF 10 AND POSTPROCEDURE AT A 0 OUT OF 10. SHE FURTHER STATES PROCEDURE CONTINUES TO HELP HER TODAY RATING HER PAIN CURRENTLY AT A 0 OUT OF 10. GENERAL: -. FALL RISK SCREENING: SCREENING :NO FALLS REPORTED IN THE LAST YEAR PAIN SCREENING: PATIENT HAS A COMPLAINT OF ACUTE OR CHRONIC PAIN :YES INTENSITY OF PAIN (SCALE OF 1 TO 10):0 NURSING NOTE: -. PAIN CENTER INTAKE QUESTIONS: DO YOU HAVE A HISTORY OF MRSA? :NO DO YOU TAKE A BLOOD THINNERS? :NO DO YOU HAVE ANY BLEEDING DISORDERS? :NO ANY NEW NUMBNESS OR WEAKNESS IN YOUR LEGS OR ARMS? :NO ANY PACEMAKER,DEFIBRILLATOR, OR DORSAL COLUMN STIMULATOR? :NO DO YOU HAVE ANY RASHES OR OPEN SORES? :NO ARE YOU ALLERGIC TO IV DYE? :NO ARE YOU DIABETIC? :NO ANY NEW PROBLEMS WITH YOUR MEDICATIONS? :NO HAVE YOU RECEIVED A VACCINE IN THE PAST 30 DAYS? :NO DO YOU PLAN TO RECEIVE A VACCINE IN THE NEXT 21 DAYS? :NO DO YOU NEED ANY PRESCRIPTION? :NO DO YOU TAKE ANY IMMUNOSUPPRESSIVE MEDICATIONS? :NO IS THERE A CHANCE YOU COULD BE ? :NO ARE YOU BREAST FEEDING? :NO CURRENT MEDICATIONS TAKING CARVEDILOL 6.25 MG TABLET 1 TSP ORALLY TWICE A DAY TAKING ASPIRIN 81 MG TABLET 1 TABLET ORALLY ONCE A DAY TAKING MONTELUKAST SODIUM 10MG TABLET TAKE 1 TABLET DAILY IN THE EVENING TAKING ACETAMINOPHEN 500 MG CAPSULE 1 CAPSULE NEEDED ORALLY EVERY 6 HRS TAKING CRESTOR 40 MG TABLET 1/2 TAB ORALLY ONCE A DAY TAKING CETIRIZINE HCL 10 MG TABLET 1 TABLET ORALLY ONCE A DAY TAKING CANDESARTAN CILEXETIL 8 MG TABLET 1 TABLET ORALLY ONCE A DAY TAKING PREMARIN 0.625 MG/GM CREAM DIRECTED VAGINAL TWICE PER WEEK TAKING GABAPENTIN 100 MG CAPSULE 1 CAPSULE ORALLY TWICE A DAY TAKING ROSUVASTATIN CALCIUM 40 MG TABLET 1/2 TAB ORALLY ONCE A DAY TAKING PREVACID 15 MG CAPSULE DELAYED RELEASE 1 CAPSULE BEFORE A MEAL ORALLY ONCE A DAY PRN TAKING SYMBICORT 160-4.5 MCG/ACT AEROSOL 2 PUFFS INHALATION TWICE A DAY NOT-TAKING URIBEL 118 MG CAPSULE 1 CAPSULE ORALLY FOUR TIMES DAILY NEEDED NOT-TAKING LANSOPRAZOLE 30 MG CAPSULE DELAYED RELEASE 1 CAPSULE ORALLY ONCE A DAY, NOTES: 09/22/18899 NOT-TAKING KEFLEX 500 MG CAPSULE 1 CAPSULE 1 HOUR PRIOR TO YOUR CYSTOSCOPY ORALLY ONCE NOT-TAKING DULOXETINE HCL 30MG CAPSULE DELAYED RELEASE PARTICLES TAKE 1 CAPSULE DAILY , NOTES: 09/22/18899 NOT-TAKING ATACAND 8 MG TABLET 1 TABLET ORALLY ONCE A DAY, NOTES: 09/22/18899 NOT-TAKING PANTOPRAZOLE SODIUM 40 MG TABLET DELAYED RELEASE 1 TABLET ORALLY BEFORE BREAKFAST ONCE A DAY NEEDED NOT-TAKING RANITIDINE HCL 150 MG TABLET 1 TABLET AT BEDTIME ORALLY TWICE A DAY NOT-TAKING VITAMIN D 2000 UNIT TABLET 2 TABLETS ORALLY ONCE A DAY NOT-TAKING ADVAIR DISKUS 250-50 MCG/DOSE MISCELLANEOUS 1 PUFF INHALATION TWICE A DAY PRN MEDICATION LIST REVIEWED AND RECONCILED WITH THE PATIENT PAST MEDICAL HISTORY HYPERTENSION - 10/08/13 TTE MILD MR/TR, MILD DIASTOLIC DYSFUNCTION, NORMAL LVE F -DR. JARRELL, [facility] HYPERLIPIDEMIA COPD LUMBAR DJD DEPRESSION/ANXIETY INSOMNIA VITAMIN D DEFICIENCY BILATERAL CAROTID ARTERY DISEASE - LEFT ICA < 50% STENOSIS; RIGHT ICA 50-69% STENOSIS ARTHRITIS FIBROMYALGIA UTI RI 07/2016 STENTS PLACED CHRONIC PAIN ALLERGIES ATORVASTATIN CALCIUM: ACHING IN JOINTS - SIDE EFFECTS SURGICAL HISTORY ORIF LEFT ELBOW AND OLECRANON, REPLACEMENT OF LEFT RADIAL HEAD 12/11/2014 LEFT CARPAL TUNNEL RELEASE 04/01/2014 ARTHROSCOPIC SURGERY TO REPAIR MENISCAL TEAR OF LEFT KNEE 10/21/2013 RIGHT CARPAL TUNNEL RELEASE 11/23/2008 CHOLECYSTECTOMY 03/1999 ABDOMINAL ADHESIONS 03/1988 TOTAL ABDOMINAL HYSTERECTOMY/BILATERAL SALPINGO-OOPHORECTOMY LATE TONSILLECTOMY 03/1956 EPIDERAL INJECTION BACK 11/29/15 STENT 07/2016 CYSTO 02/04/2019 LEFT KNEE SURGERY 12/03/2019 FAMILY HISTORY FATHER: MOTHER: 5 BROTHER(S) , 7 SISTER(S) . 1 SON(S) , 2 DAUGHTER(S) - HEALTHY. SISTER INFANTSISTER BONE CASISTER KIDNEYSISTER STOMACH CASISTER PARKINSONSSISTER HAD A STROKEMOTHER OF COLON CANCER. DENIES ALL OTHER UNINARY TRACT MEDICAL HISTORY. SOCIAL HISTORY GENERAL: TOBACCO USE ARE YOU A:FORMER SMOKER HOW LONG HAS IT BEEN SINCE YOU LAST SMOKED?> 10 YEARS LATEX QUESTIONNAIRE LATEX ALLERGY : HAVE YOU EVER DEVELOPED ANY TYPE OF REACTION AFTER HANDLING LATEX PRODUCTS SUCH RUBBER GLOVES, CONDOMS, DIAPHRAGMS, BALLOONS, SOCKS, OR UNDERWEAR?NO LATEX ALLERGY : HAVE YOU EVER DEVELOPED ANY TYPE OF REACTION DURING OR AFTER DENTAL APPOINTMENT, VAGINAL/RECTAL EXAMINATION, SURGICAL PROCEDURE, OR ANY OTHER EXPOSURE?NO DATE ASKED : 04/01/2020 LATEX RISK : HAVE YOU EVER HAD ANY DIFFICULTY BREATHING OR HIVES AFTER EATING OR HANDLING ANY FRUITS, OR VEGETABLES; SUCH KIWI, BANANAS, STONE FRUITS, OR CHESTNUTSNO LATEX RISK : DO YOU HAVE A PREVIOUS PERSONAL HISTORY OF MORE THAN NINE SURGERIES, SPINA BIFIDA, OR REPEATED CATHERIZATIONS? YES - PLEASE INDICATE : > 9 SURGERIES LATEX RISK : ARE YOU FREQUENTLY EXPOSED TO LATEX PRODUCTS IN YOUR OCCUPATION?NO LUNG CANCER SCREENING SMOKING STATUS:NON SMOKER BMI CARE GOAL FOLLOW-UP ABOVE NORMAL BMI FOLLOW-UPDIETARY MANAGEMENT EDUCATION, GUIDANCE, AND COUNSELING ALCOHOL SCREENING DID YOU HAVE A DRINK CONTAINING ALCOHOL IN THE PAST YEAR?YES HOW OFTEN DID YOU HAVE A DRINK CONTAINING ALCOHOL IN THE PAST YEAR?MONTHLY OR LESS (1 POINT) HOW MANY DRINKS DID YOU HAVE ON A TYPICAL DAY WHEN YOU WERE DRINKING IN THE PAST YEAR?1 OR 2 (0 POINTS) POINTS1 INTERPRETATIONNEGATIVE RECREATIONAL DRUG USE DRUG USE?NO CAFFEINE CAFFEINE USE?NO SEXUAL HX HAD SEX IN THE LAST 12 MONTHS (VAGINAL, ORAL, OR ANAL)?NO HAVE YOU EVER HAD AN STD?NO BAHAI NO RASTAFARIAN BELIEFS THAT WOULD IMPACT HEALTH CARE. LANGUAGE ERITREAN. LEARNING BARRIERS / SPECIAL NEEDS CHANGE FROM LAST VISIT?NO BARRIERS TO LEARNING?NO HEARING IMPAIRED?NO VISION IMPAIRED?YES COGNITIVELY IMPAIRED?NO :CORRECTIVE LENSES READINESS TO LEARN?YES LEARNING PREFERENCES?NO LEARNING CAPABILITIES PRESENT?YES EMOTIONAL BARRIERS?NO SPECIAL DEVICES?NO INDUSTRIAL PRODUCTION MANAGER NEEDED?NO DOMESTIC VIOLENCE DO YOU FEEL SAFE IN YOUR ENVIRONMENT?YES DIET: REGULAR. EXERCISE: NO REGULAR EXERCISE. MARITAL STATUS: . OTHERS AT HOME: NONE. TODAY'S VISIT NOTES, FROM 0-10, WHAT LEVEL IS YOUR PAIN TODAY? 0. PAIN CLINIC PFS, CLERGY, PUBLIC HEALTH REFERRALS PFS REFERRAL NEEDED?NO CLERGY REFERRAL NEEDED?NO PUBLIC HEALTH REFERRAL NEEDED?NO WAS THE PROVIDER NOTIFIED OF ANY PERTINENT INFO?YES HAS THE PATIENT BEEN EDUCATED REGARDING HIS/HER PLAN OF CARE?YES HAS THE PATIENT BEEN EDUCATED REGARDING PAIN, THE RISK FOR PAIN, THE IMPORTANCE OF EFFECTIVE PAIN MANAGEMENT, AND THE PAIN ASSESSMENT PROCESS?YES ADVANCE DIRECTIVE ADVANCE DIRECTIVE DISCUSSED WITH PATIENT:YES PT HAS HCP DAUGHTERSUSAN [phone]. REVIEWED WITH PT 07/24/18 6390 LASREVIEWED WITH PT 08/14/18 3217 LASREVIEWED WITH PATIENT 09/23/18 4420 JS. HOSPITALIZATION/MAJOR DIAGNOSTIC PROCEDURE SURGERIES ABOVE CHEST PAIN 08/2018 CONSTIPATION 11/2018 REVIEW OF SYSTEMS CONSTITUTIONAL: ANY RECENT FEVER NO . CHILLS NO . WEIGHT CHANGE OF UNKNOWN REASONS NO . GASTROENTEROLOGY: NEW UNEXPLAINABLE CHANGES IN BOWEL CONTROL NO . CONSTIPATION NO . GENITOURINARY: ANY NEW CHANGE IN BLADDER CONTROL? NO . NEUROLOGY: NEW ONSET DIZZINESS OR NEUROLOGICAL CHANGES NOT MENTIONED NO . NEW NUMBNESS OR PAIN PATTERNS NOT MENTIONED AND PERTINENT TO TODAY'S VISIT NO . CARDIOLOGY: NEW CHEST PRESSURE NO . NEW CHEST PAIN NO . RESPIRATORY: UNEXPLAINABLE COUGH NO . NEW SHORTNESS OF BREATH NO . VITAL SIGNS WT 144.6 LBS, HT 61.50 IN, BMI 26.88 INDEX, BP 119/85 MM HG, HR 56 /MIN, RR 18 /MIN, TEMP 96.5 F, OXYGEN SAT % 99%, SAFE IN ENV? (Y/N) Y, NA INITIALS SC 09:00, REVIEWED BY: EM. EXAMINATION GENERAL EXAMINATION: GENERALNO ACUTE DISTRESS, WELL NOURISHED AND HYDRATED. PSYCHAPPROPRIATE MOOD AND AFFECT . LUNGS:CLEAR TO AUSCULTATION BILATERALLY, NO WHEEZES, RHONCHI, RALES. HEART:NO MURMURS, REGULAR RATE AND RHYTHM. ASSESSMENTS SPONDYLOSIS WITHOUT MYELOPATHY OR RADICULOPATHY, LUMBAR REGION - M47.816 (PRIMARY) TREATMENT SPONDYLOSIS WITHOUT MYELOPATHY OR RADICULOPATHY, LUMBAR REGION NOTES: 84-YEAR-OLD FEMALE IN FOR POST BILATERAL THERAPEUTIC FACET BLOCK FOLLOW-UP. GIVEN PRESENTING SYMPTOMS RECOMMEND FOLLOW-UP IN 3 MONTHS. PATIENT HAS EXPRESSED UNDERSTANDING OF AND WAS IN AGREEMENT WITH TREATMENT PLAN. GIVEN TIME TO ASK QUESTIONS AND EXPRESS CONCERNS. PROCEDURE CODES FA211 ESTABILISHED PATIENT [facility] CHARGE DISPOSITION & COMMUNICATION FOLLOW UP 3 MONTHS (REASON: BACK PAIN) ELECTRONICALLY SIGNED BY AMANDA LOPEZ ON 04/19/2020 AT 09:13 AM EST DISCLAIMER : THIS IS A VISIT SUMMARY EXTRACTED FROM THE [employer] CHART. IT IS NOT A COPY OF THE [employer] PROGRESS NOTE. JAQUELINE
== END ==
LOC: M PAIN 09:15
PROVIDERS: ATTEND Family Medicine
DX: M47.816 Spondylosis without myelopathy or radiculopathy, lumbar region (principal); I10 Essential (primary) hypertension; E78.5 Hyperlipidemia, unspecified; J44.9 Chronic obstructive pulmonary disease, unspecified; M51.36 Other intervertebral disc degeneration, lumbar region; F32.9 Major depressive disorder, single episode, unspecified; F41.9 Anxiety disorder, unspecified; G47.00 Insomnia, unspecified; E55.9 Vitamin D deficiency, unspecified; I65.23 Occlusion and stenosis of bilateral carotid arteries; M79.7 Fibromyalgia; I25.2 Old myocardial infarction; G89.29 Other chronic pain; Z95.5 Presence of coronary angioplasty implant and graft; Z87.891 Personal history of nicotine dependence; Z79.82 Long term (current) use of aspirin; Z79.899 Other long term (current) drug therapy; Z88.8 Allergy status to other drugs, medicaments and biological substances

== ENCOUNTER → 2020-07-15 | Outpatient (CLI) | payer MEDICARE, OTHER ==
[~2020-07-15] MED LIST changes: +ASPI-569 PO; -ASPI81TAEC PO; +MONT10TA10 PO; -MONT5TAB2 PO
--- NOTE | 2020-07-15 18:33 | REPVR ---
PROCEDURE INFORMATION: Exam: MR Lumbar Spine Without Contrast Exam date and time: 07/15/2020 6:13 PM Age: 84 years old Clinical indication: Low back pain; Patient HX: Bowel disruption, lbp TECHNIQUE: Imaging protocol: Multiplanar magnetic resonance images of the lumbar spine without intravenous contrast. COMPARISON: MRI-Spine, L.S. without con 03/18/2020 1:42 PM FINDINGS: Vertebrae: Mild wedge compression deformity at T12 with approximately 30% maximal loss in vertebral height associated with presence of acute marrow edema consistent with acute compression fracture. No retropulsion of bony elements or compromise of the spinal canal. Spinal cord: Normal signal. No cord compression. L1-L2: No significant disc disease. No significant spinal canal stenosis. No neural foraminal stenosis. L2-L3: No significant disc disease. No significant spinal canal stenosis. No neural foraminal stenosis. L3-L4: There is a mild degenerative central spinal stenosis at L3-L4 secondary to diffuse annular bulging, thickened ligamentum flavum without facet joint arthropathy. L4-L5: Mild bilateral facet joint arthropathy L4-L5. No significant disc disease. L5-S1: Mild to moderate bilateral facet joint arthropathy L5-S1 without neural compromise. No significant disc disease. Soft tissues: Unremarkable. IMPRESSION: 1. Mild wedge compression deformity at T12 associated with presence of acute marrow edema consistent with acute compression fracture. No compromise of the spinal canal. 2. Mild degenerative central spinal stenosis L3-L4. 3. Mild bilateral facet joint arthropathy at L4-L5 and [id number] facet joint arthropathy L5-S1. No neural compromise. No significant disc disease. Electronically signed by: Richi Godwin On 07/15/2020 18:33:48 PM
== END ==
LOC: M RAD 16:43
PROVIDERS: ATTEND Physician Assistant
DX: M48.00 Spinal stenosis, site unspecified (principal); M51.9 Unspecified thoracic, thoracolumbar and lumbosacral intervertebral disc disorder

== ENCOUNTER → 2020-11-07 | Outpatient (REF) | payer MEDICARE, OTHER ==
[~2020-11-07] MED LIST changes: +OMEP40CA4 PO; -OMEP40CA97 PO
[2020-11-07 17:12] LABS: APPEARANCE, URINE HAZY (CLEAR); BACTERIA, URINE AUTO 1+ (NEGATIVE); BILIRUBIN, URINE AUTO NEGATIVE (NEGATIVE); BLOOD, URINE BLOOD NEGATIVE (NEGATIVE); COLOR, URINE YELLOW (YELLOW); GLUCOSE, URINE (UA) AUTO NEGATIVE (NEGATIVE); KETONE, URINE AUTO NEGATIVE (NEGATIVE); LEUKOCYTE ESTERASE, URINE AUTO NEGATIVE (NEGATIVE); NITRITE, URINE AUTO NEGATIVE (NEGATIVE); PROTEIN, URINE AUTO NEGATIVE (NEGATIVE); RBC, URINE AUTO 0 /HPF (0-3); SPECIFIC GRAVITY URINE AUTO 1.002 (1.002-1.035); SQUAMOUS EPITHELIAL CELL UR AU 1 /HPF (0-6); UROBILINOGEN, URINE AUTO 0.2 mg/dL (0.0-2.0); WBC, URINE AUTO 0 /HPF (0-3)
== END ==
LOC: M LAB REF 16:48
PROVIDERS: ATTEND Obstetrics & Gynecology
DX: N95.2 Postmenopausal atrophic vaginitis (principal)

== ENCOUNTER 2021-06-15 10:26 | Emergency (ER) | payer MEDICARE, OTHER ==
[~2021-06-15 10:26] MED LIST changes: -CAND8TAB PO; +CAND8TAB8 PO; +LOSA100T45 PO; -LOSA100T50 PO; +LOSA25TA13 PO; -LOSA25TA14 PO; +LOSA50TA28 PO; -LOSA50TA88 PO; -MONT10TA10 PO; +MONT10TA97 PO; -PREV15CA18 PO; +PREV15CA24 PO
[2021-06-15 10:49] VITALS: BP 146/65
[2021-06-15 11:28] LABS: BASO % 0.7 % (0.0-1.0); EOS # 0.2 10^3/uL (0.0-0.5); EOS % 2.9 % (0.0-3.0); HEMATOCRIT 32.1 % (36.0-47.0); HEMOGLOBIN 10.4 g/dl (12.0-15.5); LYMPH # 1.6 10^3/uL (1.5-5.0); MEAN CORPUSCULAR HEMOGLOBIN 31.9 pg (27.0-33.0); MEAN CORPUSCULAR HGB CONC 32.4 g/dl (32.0-36.5); MEAN CORPUSCULAR VOLUME 98.5 fl (80.0-96.0); MONO # 0.6 10^3/uL (0.0-0.8); MONO % 10.1 % (2.0-8.0); NEUTROPHILS # 3.5 10^3/uL (1.5-8.5); NEUTROPHILS % 59.1 % (36.0-66.0); PLATELET COUNT, AUTOMATED 205 10^3/uL (150-450); RED BLOOD COUNT 3.26 10^6/uL (4.00-5.40)
== END 2021-06-15 16:34 | disposition home or self-care (01) ==
LOC: M ED 10:26
DX: R42 Dizziness and giddiness (principal); I67.82 Cerebral ischemia; I25.2 Old myocardial infarction; I10 Essential (primary) hypertension; E78.5 Hyperlipidemia, unspecified; Z79.82 Long term (current) use of aspirin; Z79.899 Other long term (current) drug therapy

== ENCOUNTER 2021-10-06 08:52 | Inpatient (IN) | payer MEDICARE, OTHER ==
[~2021-10-06] VITALS: Ht 157.5 cm; Wt 96.0 kg
[2021-10-06] VITALS (7 sets, daily range): BP systolic 116–162; BP diastolic 57–64; O2SAT 96–98
[2021-10-06 09:53] LABS: BASO # 0.1 10^3/uL (0.0-0.2); BASO % 0.7 % (0.0-1.0); EOS # 0.2 10^3/uL (0.0-0.5); EOS % 2.2 % (0.0-3.0); HEMATOCRIT 35.7 % (36.0-47.0); LYMPH # 2.1 10^3/uL (1.5-5.0); LYMPH % 22.3 % (24.0-44.0); MEAN CORPUSCULAR HEMOGLOBIN 31.6 pg (27.0-33.0); MEAN CORPUSCULAR HGB CONC 33.6 g/dl (32.0-36.5); MEAN CORPUSCULAR VOLUME 93.9 fl (80.0-96.0); MONO # 0.7 10^3/uL (0.0-0.8); MONO % 7.9 % (2.0-8.0); NEUTROPHILS # 6.2 10^3/uL (1.5-8.5); NEUTROPHILS % 66.5 % (36.0-66.0); PLATELET COUNT, AUTOMATED 243 10^3/uL (150-450); WHITE BLOOD COUNT 9.4 10^3/uL (4.0-10.0)
[2021-10-06 09:54] LABS: VENOUS BASE EXCESS -3.8 (-2.0-2.0); VENOUS HCO3 21.5 MEQ/L (23.0-27.0); VENOUS PARTIAL PRESSURE CO2 40.1 mmHg (38.0-50.0); VENOUS PARTIAL PRESSURE O2 147.5 mmHg (30.0-50.0); VENOUS PH 7.348 UNITS (7.330-7.430); VENOUS STANDARD HCO3 21.4 MEQ/L; VENOUS TOTAL CO2 22.8 MEQ/L (24.0-28.0)
[2021-10-06 10:54] LABS: MB/CK RELATIVE INDEX 1.56 (< OR =4)
[2021-10-06 10:55] LABS: ALBUMIN 3.4 GM/DL (3.2-5.2); ALT/SGPT 25 U/L (12-78); BILIRUBIN,DIRECT 0.1 MG/DL (0.0-0.2); BILIRUBIN,TOTAL 0.2 MG/DL (0.2-1.0); BLOOD UREA NITROGEN 11 MG/DL (7-18); CALCIUM LEVEL 8.6 MG/DL (8.8-10.2); CARBON DIOXIDE LEVEL 24 MEQ/L (21-32); CHLORIDE LEVEL 97 MEQ/L (98-107); GLOMERULAR FILTRATION RATE > 60.0 (>32); GLUCOSE, FASTING 89 MG/DL (70-100); NT-PRO BNP 630 PG/ML (<450); POTASSIUM SERUM 4.4 MEQ/L (3.5-5.1); SODIUM LEVEL 127 MEQ/L (136-145); TOTAL PROTEIN 6.4 GM/DL (6.4-8.2)
[2021-10-06] MEDS ORDERED: ALBUTEROL SULFATE 2.5 MG/0.5 ML INH NEB SOLN INH ONE (11:25)
[2021-10-06] MEDS ORDERED: dexameTHASONE 20MG/5ML VIAL (J1100 PER 1MG) IV ONE (11:25)
[2021-10-06] MEDS ORDERED: IPRATROPIUM 0.02% SOLN 0.5MG 2.5ML NEB INH ONE (11:25)
[2021-10-06] MEDS ORDERED: ISOVUE-370 76% 100ML VIAL As Ordered ONE (11:38)
[2021-10-06 12:45] LABS: CK-MB VALUE MASS < 1.0 NG/ML (<3.6); CPK CREATINE PHOSPHOKINASE 62 U/L (26-192); MB/CK RELATIVE INDEX 1.61 (< OR =4)
[2021-10-06] MEDS ORDERED: BUDE10.2 INH (15:00)
[2021-10-06] MEDS ORDERED: PROAAER10 INH (15:00)
[2021-10-06] MEDS ORDERED: GABA-1171 PO (15:00)
[2021-10-06] MEDS ORDERED: CIPR250T3 PO (15:00)
[2021-10-06] MEDS ORDERED: ESTR0.1C5 PV (15:00)
[2021-10-06] MEDS ORDERED: LANS15CA PO (15:00)
[2021-10-06] MEDS ORDERED: ROSU20TA5 PO (15:04)
[2021-10-06] MEDS ORDERED: HOME MED LIST COMPLETE! XX SCH (15:05)
[2021-10-06] MEDS ORDERED: ACETAMINOPHEN TAB 650MG DOSE (2X325MG) PO PRN (15:05)
[2021-10-06] MEDS ORDERED: MOM 30ML SUSPENSION UDC PO PRN (15:05)
[2021-10-06] MEDS ORDERED: ALBUTEROL 90 MCG/ACT 8GM HFA INHALER INH PRN (15:05)
[2021-10-06] MEDS ORDERED: MAALOX 30 ML SUSP *UDC PO PRN (15:05)
[2021-10-06] MEDS ORDERED: amLODIPine 5 MG TAB PO ONE (15:50)
[2021-10-06] MEDS: SYMBICORT 160/4.5MCG INHALER 6GM INH SCH (20:00)
[2021-10-06] MEDS: GABAPENTIN 100 MG CAP PO SCH (20:54)
[2021-10-06] MEDS: CIPROFLOXACIN 250MG TAB PO SCH (20:54)
[2021-10-06] MEDS ORDERED: ASPIRIN 81MG ENTERIC TABLET PO SCH (21:00)
[2021-10-06 23:11] LABS: CREATININE,RANDOM URINE 74.8 MG/DL
[2021-10-07] VITALS (11 sets, daily range): BP systolic 91–167; BP diastolic 54–69; O2SAT 97–100
[2021-10-07] MEDS: SYMBICORT 160/4.5MCG INHALER 6GM INH SCH (07:30)
[2021-10-07 07:32] LABS: HEMATOCRIT 36.1 % (36.0-47.0); HEMOGLOBIN 12.3 g/dl (12.0-15.5); MEAN CORPUSCULAR HGB CONC 34.1 g/dl (32.0-36.5); MEAN CORPUSCULAR VOLUME 90.9 fl (80.0-96.0); PLATELET COUNT, AUTOMATED 257 10^3/uL (150-450); RED BLOOD COUNT 3.97 10^6/uL (4.00-5.40); WHITE BLOOD COUNT 9.7 10^3/uL (4.0-10.0)
[2021-10-07 07:50] LABS: CALCIUM LEVEL 9.5 MG/DL (8.8-10.2); CREATININE FOR GFR 1.13 MG/DL (0.55-1.30); GLOMERULAR FILTRATION RATE 48.6 (>32); MAGNESIUM LEVEL 1.6 MG/DL (1.8-2.4); POTASSIUM SERUM 4.7 MEQ/L (3.5-5.1)
[2021-10-07] MEDS ORDERED: MAGNESIUM OXIDE 400MG TAB (MAG-OX) PO ONE (08:35)
[2021-10-07] MEDS ORDERED: PRED20TA PO (08:44)
[2021-10-07] MEDS: CIPROFLOXACIN 250MG TAB PO SCH (08:52)
[2021-10-07] MEDS: GABAPENTIN 100 MG CAP PO SCH (08:52)
[2021-10-07] MEDS ORDERED: ROSUVASTATIN 10 MG TAB (CRESTOR) PO SCH (09:00)
[2021-10-07] MEDS ORDERED: CANDESARTAN 4MG TABLET PO SCH (09:00)
[2021-10-07] MEDS ORDERED: ENOXAPARIN 40MG/0.4ML SYRINGE (J1650 PER 10MG) SC SCH (09:00)
[2021-10-07] MEDS ORDERED: predniSONE 20 MG TAB PO SCH (09:00)
[2021-10-07] MEDS ORDERED: MONTELUKAST 10 MG TAB PO SCH (09:00)
== END 2021-10-07 10:50 | disposition home or self-care (01) | DRG 191 ==
LOC: M ED 08:52 → M ED INP 15:03 → ENRESERV 16:20 → M PCU 17:39
PROVIDERS: ADMIT Family Medicine; ATTEND Family Medicine
DX: J44.1 Chronic obstructive pulmonary disease with (acute) exacerbation (principal); J45.901 Unspecified asthma with (acute) exacerbation; E87.1 Hypo-osmolality and hyponatremia; I10 Essential (primary) hypertension; E78.5 Hyperlipidemia, unspecified; K21.9 Gastro-esophageal reflux disease without esophagitis; R00.1 Bradycardia, unspecified; I25.10 Atherosclerotic heart disease of native coronary artery without angina pectoris; Z90.49 Acquired absence of other specified parts of digestive tract; Z87.891 Personal history of nicotine dependence; Z79.82 Long term (current) use of aspirin; Z79.899 Other long term (current) drug therapy

== ENCOUNTER 2021-12-07 11:14 | Inpatient (IN) | payer MEDICARE, OTHER ==
[~2021-12-07] VITALS: Ht 157.5 cm; Wt 60.0 kg
[~2021-12-07 11:14] MED LIST changes: +BUDE10.2 INH; +CIPR250T3 PO; +ESTR0.1C5 PV; +GABA-1171 PO; +LANS15CA PO; +PRED20TA PO; +ROSU20TA5 PO
[2021-12-07] MEDS ORDERED: NS 1,000 ML IV ONE (12:15)
[2021-12-07 12:22] LABS: BASO % 0.6 % (0.0-1.0); EOS # 0.2 10^3/uL (0.0-0.5); EOS % 2.8 % (0.0-3.0); HEMATOCRIT 32.7 % (36.0-47.0); HEMOGLOBIN 10.8 g/dl (12.0-15.5); LYMPH # 2.1 10^3/uL (1.5-5.0); LYMPH % 29.5 % (24.0-44.0); MEAN CORPUSCULAR HEMOGLOBIN 31.6 pg (27.0-33.0); MEAN CORPUSCULAR VOLUME 95.6 fl (80.0-96.0); MONO # 0.7 10^3/uL (0.0-0.8); MONO % 9.2 % (2.0-8.0); NEUTROPHILS # 4.1 10^3/uL (1.5-8.5); NEUTROPHILS % 57.6 % (36.0-66.0); PLATELET COUNT, AUTOMATED 257 10^3/uL (150-450); RED BLOOD COUNT 3.42 10^6/uL (4.00-5.40); WHITE BLOOD COUNT 7.1 10^3/uL (4.0-10.0)
[2021-12-07 12:33] LABS: ALBUMIN 3.5 GM/DL (3.2-5.2); ALT/SGPT 19 U/L (12-78); BILIRUBIN,DIRECT 0.1 MG/DL (0.0-0.2); BILIRUBIN,TOTAL 0.4 MG/DL (0.2-1.0); BLOOD UREA NITROGEN 15 MG/DL (7-18); CALCIUM LEVEL 9.5 MG/DL (8.8-10.2); CARBON DIOXIDE LEVEL 25 MEQ/L (21-32); CHLORIDE LEVEL 98 MEQ/L (98-107); CREATININE FOR GFR 0.87 MG/DL (0.55-1.30); GLOMERULAR FILTRATION RATE > 60.0 (>32); GLUCOSE, FASTING 92 MG/DL (70-100); LIPASE 184 U/L (73-393); SODIUM LEVEL 130 MEQ/L (136-145); TOTAL PROTEIN 6.2 GM/DL (6.4-8.2)
[2021-12-07 12:35] LABS: CK-MB VALUE MASS < 1.0 NG/ML (<3.6); CPK CREATINE PHOSPHOKINASE 71 U/L (26-192); MB/CK RELATIVE INDEX 1.41 (< OR =4)
[2021-12-07] MEDS ORDERED: ISOVUE-370 76% 100ML VIAL As Ordered ONE (13:03)
[2021-12-07 13:53] LABS: RSV AMPLIFICATION NEGATIVE (NEGATIVE)
[2021-12-07] MEDS: LR 1,000 ML IV SCH (15:40)
[2021-12-07] MEDS ORDERED: hydrALAZINE 20MG/ML 1ML VIAL (J0360 PER 20MG) IV PRN (15:40)
[2021-12-07] MEDS ORDERED: LOPERAMIDE 2 MG CAPLET PO PRN (15:45)
[2021-12-07] MEDS ORDERED: CARV6.25 PO (15:51)
[2021-12-07] MEDS ORDERED: PRIL20TA2 PO (15:51)
[2021-12-07] MEDS ORDERED: BACITAB PO (15:51)
[2021-12-07] MEDS ORDERED: HOME MED LIST COMPLETE! XX SCH (15:55)
[2021-12-07 17:36] VITALS: BP 159/86
[2021-12-07] MEDS ORDERED: ALBUTEROL 90 MCG/ACT 8GM HFA INHALER INH PRN (18:20)
[2021-12-07] MEDS ORDERED: OMEPRAZOLE 20MG CAP PO PRN (18:20)
[2021-12-07] MEDS ORDERED: ACETAMINOPHEN TAB 650MG DOSE (2X325MG) PO PRN (18:20)
[2021-12-07] MEDS: LACTOBACILLUS ACIDOPHILUS CAP (BACID) PO SCH (18:39)
[2021-12-07] MEDS: SYMBICORT 160/4.5MCG INHALER 6GM INH SCH (19:18)
[2021-12-07 20:00] VITALS: BP 172/62
[2021-12-07] MEDS: ASPIRIN 81MG ENTERIC TABLET PO SCH (20:24)
[2021-12-07] MEDS: ROSUVASTATIN 10 MG TAB (CRESTOR) PO SCH (20:25)
[2021-12-07 20:56] VITALS: BP 148/60
[2021-12-07] MEDS ORDERED: CANDESARTAN 4MG TABLET PO SCH (21:00)
[2021-12-07 21:57] LABS: BLOOD UREA NITROGEN 12 MG/DL (7-18); CALCIUM LEVEL 9.3 MG/DL (8.8-10.2); CARBON DIOXIDE LEVEL 28 MEQ/L (21-32); CHLORIDE LEVEL 106 MEQ/L (98-107); CREATININE FOR GFR 0.77 MG/DL (0.55-1.30); GLOMERULAR FILTRATION RATE > 60.0 (>32); GLUCOSE, FASTING 106 MG/DL (70-100); MAGNESIUM LEVEL 1.9 MG/DL (1.8-2.4); POTASSIUM SERUM 4.7 MEQ/L (3.5-5.1); SODIUM LEVEL 138 MEQ/L (136-145)
[2021-12-08] VITALS (8 sets, daily range): BP systolic 138–182; BP diastolic 62–82
[2021-12-08] MEDS: LR 1,000 ML IV SCH (05:46)
[2021-12-08] MEDS: SYMBICORT 160/4.5MCG INHALER 6GM INH SCH ×2 (07:55→20:01)
[2021-12-08] MEDS: LACTOBACILLUS ACIDOPHILUS CAP (BACID) PO SCH ×2 (08:17→18:19)
[2021-12-08] MEDS: MONTELUKAST 10 MG TAB PO SCH (08:17)
[2021-12-08 08:22] LABS: HEMATOCRIT 35.5 % (36.0-47.0); HEMOGLOBIN 11.7 g/dl (12.0-15.5); MEAN CORPUSCULAR HEMOGLOBIN 31.8 pg (27.0-33.0); MEAN CORPUSCULAR VOLUME 96.5 fl (80.0-96.0); PLATELET COUNT, AUTOMATED 255 10^3/uL (150-450); RED BLOOD COUNT 3.68 10^6/uL (4.00-5.40); WHITE BLOOD COUNT 5.9 10^3/uL (4.0-10.0)
[2021-12-08 08:47] LABS: ALBUMIN 3.3 GM/DL (3.2-5.2); ALT/SGPT 17 U/L (12-78); BILIRUBIN,TOTAL 0.4 MG/DL (0.2-1.0); BLOOD UREA NITROGEN 10 MG/DL (7-18); CALCIUM LEVEL 9.7 MG/DL (8.8-10.2); CARBON DIOXIDE LEVEL 26 MEQ/L (21-32); CHLORIDE LEVEL 106 MEQ/L (98-107); CREATININE FOR GFR 0.83 MG/DL (0.55-1.30); GLOMERULAR FILTRATION RATE > 60.0 (>32); GLUCOSE, FASTING 135 MG/DL (70-100); POTASSIUM SERUM 4.9 MEQ/L (3.5-5.1); SODIUM LEVEL 138 MEQ/L (136-145); TOTAL PROTEIN 5.9 GM/DL (6.4-8.2)
[2021-12-08] MEDS ORDERED: MAGNESIUM CITRATE 300 ML BTL PO ONE (17:10)
[2021-12-08] MEDS ORDERED: POLYETHYLENE GLYCOL (MIRALAX) 238GM BOTTLE PO ONE (19:30)
[2021-12-08] MEDS: ASPIRIN 81MG ENTERIC TABLET PO SCH (20:49)
[2021-12-08] MEDS: ROSUVASTATIN 10 MG TAB (CRESTOR) PO SCH (20:49)
[2021-12-08] MEDS ORDERED: ONDANSETRON 4MG ORAL DISINTEGRATING TAB PO PRN (22:30)
[2021-12-09 03:27] VITALS: BP 136/70
[2021-12-09 05:12] LABS: HEMATOCRIT 34.3 % (36.0-47.0); HEMOGLOBIN 11.7 g/dl (12.0-15.5); MEAN CORPUSCULAR HEMOGLOBIN 32.4 pg (27.0-33.0); MEAN CORPUSCULAR HGB CONC 34.1 g/dl (32.0-36.5); PLATELET COUNT, AUTOMATED 261 10^3/uL (150-450); RED BLOOD COUNT 3.61 10^6/uL (4.00-5.40); WHITE BLOOD COUNT 6.5 10^3/uL (4.0-10.0)
[2021-12-09 05:42] LABS: ALBUMIN 3.2 GM/DL (3.2-5.2); ALT/SGPT 18 U/L (12-78); BILIRUBIN,TOTAL 0.3 MG/DL (0.2-1.0); BLOOD UREA NITROGEN 7 MG/DL (7-18); CALCIUM LEVEL 9.3 MG/DL (8.8-10.2); CARBON DIOXIDE LEVEL 29 MEQ/L (21-32); CHLORIDE LEVEL 105 MEQ/L (98-107); CREATININE FOR GFR 0.79 MG/DL (0.55-1.30); GLOMERULAR FILTRATION RATE > 60.0 (>32); GLUCOSE, FASTING 99 MG/DL (70-100); POTASSIUM SERUM 4.5 MEQ/L (3.5-5.1); SODIUM LEVEL 138 MEQ/L (136-145); TOTAL PROTEIN 5.7 GM/DL (6.4-8.2)
[2021-12-09 08:00] VITALS: BP 148/68
[2021-12-09] MEDS: SYMBICORT 160/4.5MCG INHALER 6GM INH SCH (08:00)
[2021-12-09 08:23] VITALS: BP 148/88
[2021-12-09] MEDS: MONTELUKAST 10 MG TAB PO SCH (08:23)
[2021-12-09] MEDS: LACTOBACILLUS ACIDOPHILUS CAP (BACID) PO SCH (08:23)
[2021-12-09] MEDS ORDERED: ENOXAPARIN 40MG/0.4ML SYRINGE (J1650 PER 10MG) SC SCH (09:00)
[2021-12-09] MEDS ORDERED: propofoL 200 MG/20 ML VIAL As Ordered ONE (11:14)
[2021-12-09] MEDS ORDERED: LIDOCAINE 2% 100MG/5ML SDV (FOR ANES.) As Ordered ONE (11:14)
[2021-12-09] MEDS ORDERED: METAMUCIL (PSYLLIUM) PACKET PO SCH (11:45)
[2021-12-09] MEDS ORDERED: MIRALAX *UNIT DOSE* 17GM PACKET PO SCH (11:45)
[2021-12-09 12:00] VITALS: BP 124/78
[2021-12-09] MEDS ORDERED: CAND8TAB8 PO (16:14)
[2021-12-09] MEDS ORDERED: MIRA1POW3 PO (16:14)
[2021-12-09] MEDS ORDERED: META1POW PO (16:14)
== END 2021-12-09 18:07 | disposition home or self-care (01) | DRG 392 ==
LOC: M ED 11:14 → EDBD 11:14 → M ED INP 15:40 → ENRESERV 15:51 → M PCU 17:30
PROVIDERS: ADMIT Internal Medicine; ATTEND Internal Medicine
PROC: 0DBE8ZX Excision of Large Intestine, Via Natural or Artificial Opening Endoscopic, Diagnostic (ICD-10-PCS; principal; 2021-12-09 08:45)
DX: K57.30 Diverticulosis of large intestine without perforation or abscess without bleeding (principal); E87.1 Hypo-osmolality and hyponatremia; K92.1 Melena; E86.0 Dehydration; I16.0 Hypertensive urgency; R00.1 Bradycardia, unspecified; I25.10 Atherosclerotic heart disease of native coronary artery without angina pectoris; I25.2 Old myocardial infarction; J44.9 Chronic obstructive pulmonary disease, unspecified; K52.9 Noninfective gastroenteritis and colitis, unspecified; J45.909 Unspecified asthma, uncomplicated; E78.5 Hyperlipidemia, unspecified; K21.9 Gastro-esophageal reflux disease without esophagitis; K64.8 Other hemorrhoids; M19.90 Unspecified osteoarthritis, unspecified site; M41.9 Scoliosis, unspecified; I70.0 Atherosclerosis of aorta; Z90.49 Acquired absence of other specified parts of digestive tract; Z87.891 Personal history of nicotine dependence; Z95.5 Presence of coronary angioplasty implant and graft; Z79.82 Long term (current) use of aspirin; Z79.899 Other long term (current) drug therapy; Z79.52 Long term (current) use of systemic steroids

== ENCOUNTER → 2022-01-01 | Outpatient (CLI) | payer MEDICARE, OTHER ==
[~2022-01-01] MED LIST changes: +BACITAB PO; +META1POW PO; +MIRA1POW3 PO; +PRIL20TA2 PO
== END ==
LOC: M RAD 09:58
PROVIDERS: ATTEND Internal Medicine Gastroenterology
DX: K57.30 Diverticulosis of large intestine without perforation or abscess without bleeding (principal)

== ENCOUNTER → 2022-03-23 | Outpatient (REF) | payer MEDICARE, OTHER ==
[2022-03-23 18:04] LABS: APPEARANCE, URINE MANUAL CLEAR (CLEAR); COLOR, URINE MANUAL LT YELLOW (YELLOW)
[2022-03-23 18:05] LABS: BILIRUBIN, URINE MANUAL NEGATIVE (NEGATIVE); BLOOD URINE MANUAL NEGATIVE (NEGATIVE); GLUCOSE, URINE (UA) MANUAL NEGATIVE (NEGATIVE); KETONE, URINE MANUAL NEGATIVE (NEGATIVE); LEUKOCYTE ESTERASE, URINE MAN NEGATIVE (NEGATIVE); NITRITE, URINE MANUAL NEGATIVE (NEGATIVE); PROTEIN, URINE MANUAL NEGATIVE (NEGATIVE); UROBILINOGEN, URINE MANUAL NORMAL (NORMAL)
== END ==
LOC: M SMT 17:08
PROVIDERS: ATTEND Urology
DX: R30.0 Dysuria (principal)

== ENCOUNTER → 2022-04-10 | Outpatient (CLI) | payer MEDICARE, OTHER | LOC: M RAD 10:30 | PROVIDERS: ATTEND Internal Medicine Cardiovascular Disease | DX: I65.23 Occlusion and stenosis of bilateral carotid arteries (principal) ==

== ENCOUNTER 2022-05-07 13:01 | Emergency (ER) | payer MEDICARE, OTHER ==
[~2022-05-07] VITALS: Ht 160 cm; Wt 65.9 kg
[2022-05-07] MEDS ORDERED: IBUP80TA PO (15:46)
[2022-05-07] MEDS ORDERED: TRAM50TA2 PO (15:46)
[2022-05-07 16:08] VITALS: BP 123/68
== END 2022-05-07 16:12 | disposition home or self-care (01) ==
LOC: EDBD 13:01 → M ED 13:01
DX: M25.551 Pain in right hip (principal); I10 Essential (primary) hypertension; E78.5 Hyperlipidemia, unspecified; G21.9 Secondary parkinsonism, unspecified; J45.909 Unspecified asthma, uncomplicated; M54.50 Low back pain, unspecified; Z86.79 Personal history of other diseases of the circulatory system; Z79.52 Long term (current) use of systemic steroids; Z79.82 Long term (current) use of aspirin; Z79.899 Other long term (current) drug therapy

== ENCOUNTER 2023-01-06 05:09 | Emergency (ER) | payer MEDICARE, OTHER ==
[~2023-01-06] VITALS: Ht 157.5 cm; Wt 61.4 kg
[~2023-01-06 05:09] MED LIST changes: +IBUP80TA PO; -LOSA100T45 PO; +LOSA100T46 PO; -ROSU20TA5 PO; +ROSU20TA61 PO; +TRAM50TA2 PO
[2023-01-06 11:14] VITALS: BP 152/70; TEMP 97.4; O2SAT 99
== END 2023-01-06 11:29 | disposition home or self-care (01) ==
LOC: M ED 05:09
DX: S70.02XA Contusion of left hip, initial encounter (principal); W19.XXXA Unspecified fall, initial encounter; Y92.009 Unspecified place in unspecified non-institutional (private) residence as the place of occurrence of the external cause; Y93.89 Activity, other specified; Y99.8 Other external cause status; I25.2 Old myocardial infarction; Z95.5 Presence of coronary angioplasty implant and graft

== ENCOUNTER 2023-02-25 17:42 | Observation (INO) | payer MEDICARE, OTHER ==
[~2023-02-25] VITALS: Ht 160 cm; Wt 57.7 kg
[2023-02-25] MEDS ORDERED: PRAV20TA2 PO (18:09)
[2023-02-25 19:16] LABS: BASO # 0.1 10^3/uL (0.0-0.2); BASO % 0.9 % (0.0-1.0); EOS # 0.1 10^3/uL (0.0-0.5); EOS % 1.6 % (0.0-3.0); HEMATOCRIT 31.2 % (36.0-47.0); HEMOGLOBIN 10.8 g/dl (12.0-15.5); LYMPH # 2.3 10^3/uL (1.5-5.0); MEAN CORPUSCULAR HEMOGLOBIN 31.7 pg (27.0-33.0); MEAN CORPUSCULAR HGB CONC 34.6 g/dl (32.0-36.5); MEAN CORPUSCULAR VOLUME 91.5 fl (80.0-96.0); MONO # 0.6 10^3/uL (0.0-0.8); MONO % 10.3 % (2.0-8.0); NEUTROPHILS # 2.7 10^3/uL (1.5-8.5); PLATELET COUNT, AUTOMATED 273 10^3/uL (150-450); RED BLOOD COUNT 3.41 10^6/uL (4.00-5.40); WHITE BLOOD COUNT 5.8 10^3/uL (4.0-10.0)
[2023-02-25 19:44] LABS: THYROID STIMULATING HORMONE 1.943 uIU/ML (0.55-4.78)
[2023-02-25 19:45] LABS: FREE T4 1.22 NG/DL (0.89-1.76)
[2023-02-25 19:52] LABS: CALCIUM LEVEL 9.1 MG/DL (8.3-10.6); CREATININE FOR GFR 0.97 MG/DL (0.55-1.30); GLOMERULAR FILTRATION RATE 57.8 (>32)
[2023-02-25 20:19] LABS: RSV AMPLIFICATION NEGATIVE (NEGATIVE)
[2023-02-25] MEDS ORDERED: ONDANSETRON 4MG TAB PO PRN (20:30)
[2023-02-25] MEDS ORDERED: ACETAMINOPHEN TAB 650MG DOSE (2X325MG) PO PRN (20:30)
[2023-02-25] MEDS ORDERED: PROA1AER2 INH (20:36)
[2023-02-25] MEDS ORDERED: HOME MED LIST COMPLETE! XX SCH (20:40)
[2023-02-25 21:02] LABS: CREATININE,RANDOM URINE 21.2 MG/DL
[2023-02-25 21:57] LABS: URIC ACID 5.4 MG/DL (3.1-7.8)
[2023-02-25] MEDS ORDERED: amLODIPine 5 MG TAB PO ONE (22:00)
[2023-02-26 00:02] VITALS: BP 160/54
[2023-02-26] MEDS: HEPARIN SOD (PORCINE) 5000UNITS/ML 1ML VIAL/SYRINGE SC SCH ×2 (00:02→08:36)
[2023-02-26 03:09] LABS: CALCIUM LEVEL 8.9 MG/DL (8.3-10.6); CREATININE FOR GFR 0.97 MG/DL (0.55-1.30); GLOMERULAR FILTRATION RATE 57.8 (>32); POTASSIUM SERUM 3.9 MMOL/L (3.5-5.1)
[2023-02-26] MEDS ORDERED: SYMBICORT 160/4.5MCG INHALER 6GM INH SCH (08:00)
[2023-02-26] MEDS ORDERED: CANDESARTAN 4MG TABLET PO SCH (09:00)
[2023-02-26] MEDS ORDERED: CANDESARTAN 16MG TABLET PO SCH ×2 (09:00→09:11)
[2023-02-26] MEDS ORDERED: MONTELUKAST 10 MG TAB PO SCH (09:00)
[2023-02-26 09:05] LABS: BLOOD UREA NITROGEN 15 MG/DL (9-23); CARBON DIOXIDE LEVEL 24 MMOL/L (20-31); CHLORIDE LEVEL 101 MMOL/L (98-107); CREATININE FOR GFR 0.86 MG/DL (0.55-1.30); GLOMERULAR FILTRATION RATE > 60.0 (>32); GLUCOSE, FASTING 84 MG/DL (74-106); POTASSIUM SERUM 4.6 MMOL/L (3.5-5.1); SODIUM LEVEL 133 MMOL/L (136-145)
[2023-02-26] MEDS ORDERED: AMLO1TAB24 PO (09:13)
[2023-02-26] MEDS ORDERED: PILL CUTTER 1 EACH XX PRN (09:15)
[2023-02-26 09:28] VITALS: BP 125/63; TEMP 97.3; O2SAT 98
[2023-02-26] MEDS ORDERED: ASPIRIN 81MG ENTERIC TABLET PO SCH (21:00)
[2023-02-26] MEDS ORDERED: PRAVASTATIN 20 MG TAB PO SCH (21:00)
== END 2023-02-26 11:20 | disposition home or self-care (01) ==
LOC: M ED 17:42 → EDBD 17:42 → M ED INP 17:43
PROVIDERS: ADMIT Internal Medicine; ATTEND Internal Medicine
DX: E87.1 Hypo-osmolality and hyponatremia (principal); I10 Essential (primary) hypertension; E78.9 Disorder of lipoprotein metabolism, unspecified; J45.909 Unspecified asthma, uncomplicated; R10.813 Right lower quadrant abdominal tenderness; R10.814 Left lower quadrant abdominal tenderness; Z88.8 Allergy status to other drugs, medicaments and biological substances; Z79.899 Other long term (current) drug therapy; Z87.891 Personal history of nicotine dependence
CPT/HCPCS: 36415; 80048; 81001; 82570; 83930; 83935; 84300; 84439; 84443; 84550; 85025; 87631; 93005; 93041; 94640; 96372; 97116; 97161; 99285; G0378

== ENCOUNTER → 2023-03-11 | Outpatient (CLI) | payer MEDICARE, OTHER ==
[~2023-03-11] MED LIST changes: +AMLO1TAB24 PO; +PRAV20TA2 PO; +PROA1AER2 INH
== END ==
LOC: M WHC 08:22
PROVIDERS: ATTEND Student in an Organized Health Care Education/Training Program
DX: M81.0 Age-related osteoporosis without current pathological fracture (principal)

== ENCOUNTER 2023-04-23 11:43 | Day surgery (SDC) | payer MEDICARE, OTHER ==
[~2023-04-23] VITALS: Ht 157.5 cm; Wt 59.9 kg
[~2023-04-23 11:43] MED LIST changes: +EZET10TA21 PO; +FAMO20TA5 PO; +LIDOCAINE 2% 100MG/5ML SDV (FOR ANES.) As Ordered ONE; +METO1TAB32 PO; +NS 1,000 ML IV ONE; +ROSU40TA4 PO; +VITMTA PO; +propofoL 200 MG/20 ML VIAL As Ordered ONE
[2023-04-23 14:25] VITALS: BP 187/76; O2SAT 98
== END 2023-04-23 14:41 | disposition home or self-care (01) ==
LOC: M OPP 11:43
PROVIDERS: ATTEND Internal Medicine Gastroenterology
DX: R10.13 Epigastric pain (principal); Z86.74 Personal history of sudden cardiac arrest; Z95.5 Presence of coronary angioplasty implant and graft; Z87.891 Personal history of nicotine dependence; I25.10 Atherosclerotic heart disease of native coronary artery without angina pectoris; Z79.1 Long term (current) use of non-steroidal anti-inflammatories (NSAID); Z79.51 Long term (current) use of inhaled steroids; Z79.811 Long term (current) use of aromatase inhibitors; Z79.82 Long term (current) use of aspirin; Z79.899 Other long term (current) drug therapy; Z88.8 Allergy status to other drugs, medicaments and biological substances

== ENCOUNTER → 2024-02-03 | Outpatient (CLI) | payer MEDICARE, OTHER ==
[~2024-02-03] MED LIST changes: -LIDOCAINE 2% 100MG/5ML SDV (FOR ANES.) As Ordered ONE; -MIRA1POW3 PO; +MIRA33506 PO; -NS 1,000 ML IV ONE; -ROSU40TA4 PO; +ROSU40TA81 PO; -propofoL 200 MG/20 ML VIAL As Ordered ONE
== END ==
LOC: M WHC 07:18
PROVIDERS: ATTEND Nurse Practitioner Acute Care
DX: I65.23 Occlusion and stenosis of bilateral carotid arteries (principal)

== ENCOUNTER → 2024-02-25 | Outpatient (CLI) | payer MEDICARE, OTHER ==
[~2024-02-25] MED LIST changes: +BARIUM SULFATE 700 MG TABLET (E-Z-DISK) As Ordered ONE; +E-Z-PAQUE 96% w/w SUSP 176GM BTL As Ordered ONE; -ROSU20TA61 PO; +ROSU20TA86 PO; +VARIBAR NECTAR 40% w/v 240ML SUSP BTL As Ordered ONE; +VARIBAR PUDDING 40% w/v 230ML TUBE As Ordered ONE
== END ==
LOC: M RAD 12:19
PROVIDERS: ATTEND Nurse Practitioner Family
DX: R13.10 Dysphagia, unspecified (principal)

== ENCOUNTER 2024-06-08 11:36 | Emergency (ER) | payer MEDICARE, OTHER ==
[~2024-06-08] VITALS: Ht 160 cm; Wt 56.8 kg
[~2024-06-08 11:36] MED LIST changes: -ADV250INH INH; +ADVA1AER9 INH; -BARIUM SULFATE 700 MG TABLET (E-Z-DISK) As Ordered ONE; -E-Z-PAQUE 96% w/w SUSP 176GM BTL As Ordered ONE; -VARIBAR NECTAR 40% w/v 240ML SUSP BTL As Ordered ONE; -VARIBAR PUDDING 40% w/v 230ML TUBE As Ordered ONE
[2024-06-08 14:10] LABS: BASO % 0.6 % (0.0-1.0); EOS # 0.1 10^3/uL (0.0-0.5); EOS % 1.1 % (0.0-3.0); HEMATOCRIT 32.4 % (36.0-47.0); HEMOGLOBIN 10.9 g/dl (12.0-15.5); LYMPH # 1.5 10^3/uL (1.5-5.0); LYMPH % 22.6 % (24.0-44.0); MEAN CORPUSCULAR HEMOGLOBIN 31.9 pg (27.0-33.0); MEAN CORPUSCULAR HGB CONC 33.6 g/dl (32.0-36.5); MEAN CORPUSCULAR VOLUME 94.7 fl (80.0-96.0); MONO # 0.4 10^3/uL (0.0-0.8); MONO % 6.6 % (2.0-8.0); NEUTROPHILS # 4.5 10^3/uL (1.5-8.5); NEUTROPHILS % 68.9 % (36.0-66.0); PLATELET COUNT, AUTOMATED 216 10^3/uL (150-450); RED BLOOD COUNT 3.42 10^6/uL (4.00-5.40); WHITE BLOOD COUNT 6.6 10^3/uL (4.0-10.0)
[2024-06-08 14:47] LABS: ALBUMIN 3.4 G/DL (3.2-5.2); BILIRUBIN,DIRECT 0.1 MG/DL (<0.4); BILIRUBIN,TOTAL 0.4 MG/DL (0.3-1.2); CALCIUM LEVEL 9.6 MG/DL (8.3-10.6); CREATININE FOR GFR 0.96 MG/DL (0.55-1.30); GLOMERULAR FILTRATION RATE 58.4 (>32); POTASSIUM SERUM 4.7 MMOL/L (3.5-5.1); TOTAL PROTEIN 6.3 G/DL (5.7-8.2)
[2024-06-08 14:49] LABS: THYROID STIMULATING HORMONE 1.611 uIU/ML (0.55-4.78)
[2024-06-08 16:00] VITALS: TEMP 96.4
[2024-06-08 19:15] VITALS: BP 159/88; O2SAT 98
== END 2024-06-08 19:47 | disposition home or self-care (01) ==
LOC: EDBD 11:36 → M ED 11:36
DX: R51.9 Headache, unspecified (principal); I44.0 Atrioventricular block, first degree; I10 Essential (primary) hypertension; E78.5 Hyperlipidemia, unspecified; Z88.8 Allergy status to other drugs, medicaments and biological substances; Z79.1 Long term (current) use of non-steroidal anti-inflammatories (NSAID); Z79.51 Long term (current) use of inhaled steroids; Z79.899 Other long term (current) drug therapy; R29.818 Other symptoms and signs involving the nervous system

== ENCOUNTER 2025-04-23 06:38 | Emergency (ER) | payer MEDICARE, OTHER ==
[~2025-04-23] VITALS: Ht 160 cm; Wt 56.1 kg
[~2025-04-23 06:38] MED LIST changes: -EZET10TA21 PO; +EZET10TA57 PO; -PRAV20TA2 PO; +PRAV20TA78 PO; +SENN-225 PO; -SENO8.6T5 PO
[2025-04-23] MEDS: CYCLOBENZAPRINE 5 MG TABLET PO ONE (08:09)
[2025-04-23] MEDS: LIDOCAINE 5% PATCH TD ONE (08:09)
[2025-04-23] MEDS: ACETAMINOPHEN 500 MG TAB PO ONE (08:09)
[2025-04-23] MEDS: MORPHINE 2 MG/ML 1 ML VIAL IV PRN (09:21)
[2025-04-23 10:50] VITALS: TEMP 97.1
[2025-04-23] MEDS ORDERED: PERC5TAB12 PO (16:41)
[2025-04-23 16:45] VITALS: BP 149/93; O2SAT 97
== END 2025-04-23 17:03 | disposition home or self-care (01) ==
LOC: EDBD 06:38 → M ED 06:38
DX: S32.020A Wedge compression fracture of second lumbar vertebra, initial encounter for closed fracture (principal); Y92.9 Unspecified place or not applicable; Y93.F2 Activity, caregiving, lifting; Y99.9 Unspecified external cause status; I10 Essential (primary) hypertension; E78.00 Pure hypercholesterolemia, unspecified; Z88.8 Allergy status to other drugs, medicaments and biological substances; Z79.1 Long term (current) use of non-steroidal anti-inflammatories (NSAID); Z79.51 Long term (current) use of inhaled steroids; Z79.899 Other long term (current) drug therapy; Z79.810 Long term (current) use of selective estrogen receptor modulators (SERMs)